=== PATIENT | female | born 1965 | race Caucasian/White ===

== ENCOUNTER 2019-11-22 16:53 | Outpatient (REF) | payer MEDICARE, SELFPAY | END 2019-11-22 16:54 | disposition home or self-care (01) | LOC: HO.LNP 16:53 | PROVIDERS: Visit Provider Nurse Practitioner Family | DX: Z20.828 Contact with and (suspected) exposure to other viral communicable diseases (principal) | CPT/HCPCS: 87635 ==

== ENCOUNTER → 2019-11-30 10:51 | Outpatient (BNVA) | payer MEDICARE, SELFPAY | PROVIDERS: PCP Nurse Practitioner Family; Referring Provider Nurse Practitioner Family; Visit Provider Nurse Practitioner | DX: D13.6 Benign neoplasm of pancreas (principal); K62.9 Disease of anus and rectum, unspecified | CPT/HCPCS: 99213 ==

== ENCOUNTER 2020-01-06 08:25 | Outpatient (REF) | payer MEDICARE, SELFPAY ==
--- NOTE | 2020-01-06 08:30 | MM_ITS ---
EXAMINATION: MM SCREENING DIGITAL BREAST TOMOSYNTHESIS, BILATERAL CLINICAL INFORMATION: Screening. Asymptomatic. Family history breast cancer, grandmother, aunt. The lifetime risk of breast cancer based on the Tyrer-Cuzick Model is 11%. COMPARISON: Mammography: 04/18/2014, 03/21/2013 TECHNIQUE: Digital breast tomosynthesis is performed in both the craniocaudal and mediolateral oblique views along with computer-aided detection (CAD). Synthesized 2D images are generated from the tomosynthesis. FINDINGS: There are scattered areas of fibroglandular density (ACR BI-RADS breast composition Category b). There are no significant masses, abnormal calcifications, or other abnormalities. No significant change from prior exams. The axilla are unremarkable. MM/MM tomosynthesis screening BI IMPRESSION: No mammographic evidence of malignancy. ASSESSMENT: BI-RADS 1: Negative RECOMMENDATION: Routine annual mammography screening. This patient's information was entered into a reminder system with a target due date for their next mammogram.
== END 2020-01-06 08:26 | disposition home or self-care (01) ==
LOC: HO.MAMMO 08:25
PROVIDERS: PCP Nurse Practitioner Family; Visit Provider Obstetrics & Gynecology
DX: Z12.31 Encounter for screening mammogram for malignant neoplasm of breast (principal)
CPT/HCPCS: 77063; 77067

== ENCOUNTER 2020-02-02 18:07 | Emergency (ER) | payer MEDICARE, SELFPAY ==
[2020-02-02 18:09] VITALS: BMI 32.5
--- NOTE | 2020-02-02 18:10 | ECG_ITS ---
Test Reason : CHEST PAIN Blood Pressure : / mmHG Vent. Rate : 075 BPM Atrial Rate : 075 BPM P-R Int : 172 ms QRS Dur : 090 ms QT Int : 392 ms P-R-T Axes : 006 004 017 degrees QTc Int : 437 ms Normal sinus rhythm Normal ECG When compared with ECG of 22-DEC-2018 11:08, No significant change was found Referred By: Generic ED Physician Electronically Signed By:Evin Cornejo
[2020-02-02 18:33] VITALS: BP 203/89; PULSE 74; RESP 18; TEMP 36.6; O2SAT 99; BMI 32.2
--- NOTE | 2020-02-02 19:13 | ED_ITS ---
HPI - Chest Pain General Chief Complaint: Chest Pain Stated Complaint: chest pain Time Seen by Provider: 02/02/20 19:13 Source: patient Mode of arrival: ambulatory Limitations: no limitations History of Present Illness HPI narrative: States 3 days of left-sided pain/discomfort in the setting of increased social stressors/anxiety. No shortness of breath. No lower extremity swelling or edema. No recent travel. No cough or URI symptoms. MD complaint: chest pain and chest discomfort Onset (ago): day(s) Timing of current episode: episodic Onset: other (Emotional upset) Pain location: left chest Pain radiation: none Quality: tightness Treatment prior to arrival: none Related Data Home Medications Medication Instructions Recorded Confirmed albuterol sulfate 90 mcg/actuation 1 puff PO Q4H PRN 11/17/19 11/17/19 aerosol inhaler bisacodyl 5 mg tablet,delayed 10 mg PO DAILY 11/17/19 11/17/19 release fluticasone propionate 45 2 puff PO BID 11/17/19 11/17/19 mcg-salmeterol 21 mcg/actuation HFA inhaler peg 3350-electrolytes 236 ml PO 11/17/19 11/17/19 gram-22.74 gram-6.74 gram-5.86 gram solution Previous Rx's Medication Instructions Recorded fluconazole 150 mg tablet 150 mg PO Q3D #2 tab 11/22/19 hydroxyzine HCl 25 mg PO BID PRN #10 tab 02/02/20 Allergies Allergy/AdvReac Type Severity Reaction Status Date / Time No Known Allergies Allergy Verified 11/30/19 08:52 [No Known Allergies*] Review of Systems Review of Systems: Constitutional: No Weight loss, No Fever, No Chills, No Night Sweats, No Fatigue, No Malaise ENT/Mouth: No Hearing loss, No Ear Pain, No Nasal Congestion, No Sinus Pain, No Hoarseness, No sore throat, No Rhinorrhea, No Swallowing Difficulty Eyes: No Eye Pain, No Swelling, No Redness, No Foreign Body, No Discharge, No Vision Changes Cardiovascular: + Chest Pain, No SOB, No Dyspnea on Exertion, No Orthopnea, No Edema, No Palpitations Respiratory: No Cough, No Sputum, No Wheezing, No Dyspnea Gastrointestinal: No Nausea, No Vomiting, No Diarrhea, No Constipation, No abdominal Pain, No Hematochezia, No Melena Genitourinary: no irregular bleeding, No Dysuria, No Urinary Frequency, No Hematuria, No Urinary Incontinence, No Urgency, No Flank Pain, No Urinary Flow Changes, No Hesitancy Musculoskeletal: No joint pain, No Myalgias, No Joint Swelling Skin: No Skin Lesions, No rash Neuro: No Weakness, No Numbness, No Paresthesias, No Loss of Consciousness, No Dizziness, No Headache Psych: + Anxiety as noted in HPI relagted to social stress, No Depression, No SI/HI/AH/VH Heme/Lymph: No Bruising, No Bleeding,No Lymphadenopathy Endocrine: No Polyuria, No Polydipsia, No Temperature Intolerance Yes all other systems are reviewed and are negative [facility] Past Medical History Medical History Abnormal US (ultrasound) of abdomen COPD (chronic obstructive pulmonary disease) Surgical History History of cervical discectomy History of surgery on wrist Hx of colonoscopy (10/24/19) Hx of neck surgery Family History Family History (Updated 11/30/19 @ 10:53 by BETTY Hines) Father Diabetes mellitus Lyme disease Mother Lung cancer Other Hyperglycemia Leukemia Social History Social History (Updated 11/30/19 @ 10:54 by BETTY Hines) Alcohol intake: current Alcohol intake frequency: does not drink Smoking Status: Never smoker Physical Exam Vital Signs: Vital Signs: Last Vital Signs Temp 97.9 F 02/02/20 18:33 Pulse 72 02/02/20 20:00 Resp 16 02/02/20 20:00 BP 143/76 H 02/02/20 20:00 Pulse Ox 99 02/02/20 20:00 Body Mass Index 32.2 Reviewed Const: General: cooperative and healthy appearing; No acute distress or intoxicated appearing Nutritional Appearance: average body habitus Orientation/consciousness: patient oriented x3 HENMT: Head: Yes normal to inspection Ears: hearing grossly normal bilaterally Eyes: General: appearance normal, both eyes and all related structures Visual Orellana: normal visual orellana by confrontation Neck: Neck: Yes normal visual inspection and No tender Thyroid: Thyroid normal Chest: Chest palpation & inspection: normal inspection of the chest Resp: Effort & Inspection: normal respiratory effort Auscultation: clear to auscultation bilaterally Cardio: Jugular venous distension: no JVD Palpation: normal PMI Rhythm: regular rhythm Heart sounds: S1 normal heart sound present and S2 normal heart sound present GI: Inspection: Yes normal to inspection Percussion: Yes normal to percussion Auscultation: normal bowel sounds : General: Yes no CVA tenderness Back/Spine/Pelvis: Back: no CVA tenderness Skin: General skin exam: no rashes or lesions noted Neuro: General: patient oriented x3 Extrem: General: Yes normal to inspection Course Course Course Narrative: Feels better after hydroxyzine. Workup essentially unremarkable. Will be discharged home with prescription of hydroxyzine with clear precaution return follow-up instructions. MDM - Chest Pain MDM Narrative Medical decision making narrative: Heart score due to age, classified as low risk. Risk of MAC ED of 0.9-1.7%. Pulmonary embolism less likely not tachycardic common non hypoxic Differential Diagnosis Differential diagnosis: Likely atypical chest pain, costochondritis and chest pain; Unlikely fracture of rib, pneumothorax, stable angina, unstable angina pectoris, st elevation myocardial infarction and biliary colic Medical Records Data Attestation: I reviewed the patient's medical records. Lab Data Attestation: I reviewed the patient's lab results. Result diagrams: 02/02/20 19:25 02/02/20 19:25 Labs: Lab Results 02/02/20 02/02/20 02/02/20 Range/Units 19:25 19:25 19:25 WBC 9.8 (4.8-10.8) X10*3/uL RBC 4.39 (4.20-5.50) X10*6/uL Hgb 12.9 (12.0-16.0) g/dl Hct 39.2 (37-47) % MCV 89.3 (80-98) fL MCH 29.4 (27.0-33.0) pg MCHC 32.9 (31.0-35.0) g/dl RDW 12.6 (11.0-16.0) % Plt Count 271 (160-400) X10*3/uL MPV 9.7 (9.4-12.3) fL Immature Gran % (Auto) 0.4 (0.0-0.4) % Neut % (Auto) 64.3 (45-73) % Lymph % (Auto) 26.0 (20-40) % [place] % (Auto) 7.9 (2-11) % Eos % (Auto) 1.1 (0-4) % Baso % (Auto) 0.3 (0-2) % Lymph # (Auto) 2.5 (1.2-4.9) X10*3/uL [place] # (Auto) 0.8 (0.1-1.2) X10*3/uL Eos # (Auto) 0.1 (0.0-0.4) X10*3/uL Baso # (Auto) 0.0 (0.0-0.2) X10*3/uL Abs Immat Gran (auto) 0.04 H (0.00-0.03) X10*3/uL Absolute Neuts (auto) 6.3 (2.0-8.3) X10*3/uL Absolute Nucleated RBC 0.000 (0.0-0.012) X10*3/uL Nucleated RBC % (auto) 0.0 (0.0-0.2) /100WBC PT (10.8-13.0) SEC INR (0.9-1.1) APTT (24.1-38.0) SEC Sodium 142 (135-145) mmol/L Potassium 4.9 (3.3-5.1) mmol/l Chloride 104 (96-108) mmol/L Carbon Dioxide 28 (22-29) mmol/L Anion Gap 15 (12-20) BUN 16 (9-16) mg/dL Creatinine 0.79 (0.5-1.4) mg/dL Estim Creat Clear Calc 71.8 Estimated GFR > 60 Random Glucose 99 (60-115) mg/dL Calcium 9.6 (8.4-10.2) mg/dL Total Bilirubin 0.3 (0.0-1.0) mg/dL AST 27 (5-31) U/L ALT 16 (0-31) U/L Alkaline Phosphatase 109 (39-117) U/L Troponin I High Sens 3.6 (<3.5-17.0) ng/L Total Protein 7.4 (6.5-8.0) g/dL Albumin 4.2 (3.5-5.0) g/dL Coronavirus (PCR) (Negative) Influenza Type A (PCR) (Negative) Influenza Type B (PCR) (Negative) RSV RNA Qual (PCR) (Negative) 02/02/20 02/02/20 Range/Units 19:25 19:36 WBC (4.8-10.8) X10*3/uL RBC (4.20-5.50) X10*6/uL Hgb (12.0-16.0) g/dl Hct (37-47) % MCV (80-98) fL MCH (27.0-33.0) pg MCHC (31.0-35.0) g/dl RDW (11.0-16.0) % Plt Count (160-400) X10*3/uL MPV (9.4-12.3) fL Immature Gran % (Auto) (0.0-0.4) % Neut % (Auto) (45-73) % Lymph % (Auto) (20-40) % [place] % (Auto) (2-11) % Eos % (Auto) (0-4) % Baso % (Auto) (0-2) % Lymph # (Auto) (1.2-4.9) X10*3/uL [place] # (Auto) (0.1-1.2) X10*3/uL Eos # (Auto) (0.0-0.4) X10*3/uL Baso # (Auto) (0.0-0.2) X10*3/uL Abs Immat Gran (auto) (0.00-0.03) X10*3/uL Absolute Neuts (auto) (2.0-8.3) X10*3/uL Absolute Nucleated RBC (0.0-0.012) X10*3/uL Nucleated RBC % (auto) (0.0-0.2) /100WBC PT 11.9 (10.8-13.0) SEC INR 1.0 (0.9-1.1) APTT 33.8 (24.1-38.0) SEC Sodium (135-145) mmol/L Potassium (3.3-5.1) mmol/l Chloride (96-108) mmol/L Carbon Dioxide (22-29) mmol/L Anion Gap (12-20) BUN (9-16) mg/dL Creatinine (0.5-1.4) mg/dL Estim Creat Clear Calc Estimated GFR Random Glucose (60-115) mg/dL Calcium (8.4-10.2) mg/dL Total Bilirubin (0.0-1.0) mg/dL AST (5-31) U/L ALT (0-31) U/L Alkaline Phosphatase (39-117) U/L Troponin I High Sens (<3.5-17.0) ng/L Total Protein (6.5-8.0) g/dL Albumin (3.5-5.0) g/dL Coronavirus (PCR) NEGATIVE (Negative) Influenza Type A (PCR) NEGATIVE (Negative) Influenza Type B (PCR) NEGATIVE (Negative) RSV RNA Qual (PCR) NEGATIVE (Negative) Imaging Data Chest x-ray: Radiologist's impression: Cary Soler 54 F 1965 [place] [address] XRay Report Signed Patient: Cary SolernMR#: [id number] : 1965Acct:[id number] Age/Sex: 54 / FADM Date: 02/02/20 Loc: HO.ED Attending Dr: Ordering Physician: Siddhartha Carmona NP Date of Service: 02/02/20 Procedure(s): XR chest 1V Accession Number(s): [id number] cc: Siddhartha Carmona NP~ EXAMINATION: XR CHEST CLINICAL INFORMATION: Chest pain COMPARISON: 04/26/2019 TECHNIQUE: Frontal view of the chest was obtained. FINDINGS: No significant abnormality is noted involving the heart, lungs, mediastinum, bony thorax or soft tissues. XR/XR chest 1V IMPRESSION: Unremarkable examination. Dictated By:CHEKO CABRERA MD Signed By:<Electronically signed by CHEKO CABRERA MD in OV>02/02/201937 DD/ 12 TD/TT: Insulation Board Head Saw Operator: ALEKSANDR ECG Data ECG #1: Interpretation: Normal sinus rhythm Rate 75 DC interval within normal limits No acute ST segment changes No significant change from 12/22/2018. Discharge Plan Discharge Clinical Impression: Atypical chest pain, Anxiety, Hypertension Patient Disposition: Home, Self-Care Instructions: Chest Pain (ED), Anxiety (ED) Additional Instructions: Well-balanced diet Stress relieving techniques as reviewed Yoga Plenty of sleep Avoiding carbonated drinks/imaging/caffeine Hydroxyzine as needed for anxiety as prescribed Follow-up with her primary care doctor in the next 3-7 days to have your blood pressure recheck Return if any concerns worsening symptoms Thank you Prescriptions: New hydroxyzine HCl 25 mg tablet 25 mg PO BID PRN (Reason: anxiety) Qty: 10 RF: 0 No Action peg 3350-electrolytes 236-22.74-6.74 -5.86 gram recon soln PO RF: 0 bisacodyl 5 mg tablet,delayed release (DR/EC) 10 mg PO DAILY RF: 0 Advair HFA 45-21 mcg/actuation HFA aerosol inhaler 2 puff PO BID RF: 0 albuterol sulfate 90 mcg/actuation HFA aerosol inhaler 1 puff PO Q4H PRNRF: 0 fluconazole [Diflucan] 150 mg tablet 150 mg PO Q3D Qty: 2 RF: 0 Referrals: Jose Carlos Sullivan FNP-BONG [Primary Care Provider] - 5 days Jerry Jones MD [Physician] - 2 weeks Interventions: ED Discharge Assessment Last Done: 02/02/20 22:04 Discharge Date/Time: 02/02/20 22:05
[2020-02-02 19:38] LABS: Basophils Percent Auto 0.3 % (0-2); Eosinophils Absolute Auto 0.1 X10*3/uL (0.0-0.4); Eosinophils Percent Auto 1.1 % (0-4); Hematocrit 39.2 % (37-47); Hemoglobin 12.9 g/dl (12.0-16.0); Imm Gran Abs Auto 0.04 X10*3/uL (0.00-0.03); Imm Gran Pct Auto 0.4 % (0.0-0.4); Lymphocytes Absolute Auto 2.5 X10*3/uL (1.2-4.9); MANUAL DIFF FLAG NO; Mean Corpuscular HGB Conc 32.9 g/dl (31.0-35.0); Mean Corpuscular Hemoglobin 29.4 pg (27.0-33.0); Mean Corpuscular Volume 89.3 fL (80-98); Mean Platelet Volume 9.7 fL (9.4-12.3); Monocytes Absolute Auto 0.8 X10*3/uL (0.1-1.2); Monocytes Percent Auto 7.9 % (2-11); Neutrophils Absolute Auto 6.3 X10*3/uL (2.0-8.3); Neutrophils Percent Auto 64.3 % (45-73); Platelet Count 271 X10*3/uL (160-400); Red Blood Count 4.39 X10*6/uL (4.20-5.50); Red Cell Distribution Width 12.6 % (11.0-16.0); White Blood Count 9.8 X10*3/uL (4.8-10.8)
[2020-02-02 19:53] LABS: Prothrombin Time 11.9 SEC (10.8-13.0)
[2020-02-02 19:55] LABS: Partial Thromboplastin Time 33.8 SEC (24.1-38.0)
[2020-02-02 20:00] VITALS: BP 143/76; PULSE 72; RESP 16; O2SAT 99
[2020-02-02 20:03] LABS: Potassium 4.9 mmol/l (3.3-5.1)
[2020-02-02 20:04] LABS: Alanine Aminotransferase 16 U/L (0-31); Albumin Level 4.2 g/dL (3.5-5.0); Alkaline Phosphatase 109 U/L (39-117); Anion Gap 15 (12-20); Aspartate Amino Transferase 27 U/L (5-31); Bilirubin Total 0.3 mg/dL (0.0-1.0); Blood Urea Nitrogen 16 mg/dL (9-16); Calcium 9.6 mg/dL (8.4-10.2); Carbon Dioxide 28 mmol/L (22-29); Chloride 104 mmol/L (96-108); Creatinine Clr Calc Pharmacy 71.8; Estimated Glomerular Filt Rate > 60; Glucose Random 99 mg/dL (60-115); Sodium 142 mmol/L (135-145); Total Protein 7.4 g/dL (6.5-8.0)
[2020-02-02 20:07] LABS: Troponin-I High Sensitivity 3.6 ng/L (<3.5-17.0)
[2020-02-02 20:20] LABS: Influenza A PCR NEGATIVE (Negative); Influenza B PCR NEGATIVE (Negative); Resp Syncy Virus RNA Qual PCR NEGATIVE (Negative); SARS COV2 PCR INHOUSE NEGATIVE (Negative)
== END 2020-02-02 22:05 | disposition home or self-care (01) ==
PROVIDERS: Nurse Practitioner Primary Care; Emergency Provider Emergency Medicine; PCP Nurse Practitioner Family
DX: R07.89 Other chest pain (principal); F41.9 Anxiety disorder, unspecified; I10 Essential (primary) hypertension; Z20.828 Contact with and (suspected) exposure to other viral communicable diseases
CPT/HCPCS: 0241U; 36415; 71045; 80053; 84484; 85025; 85610; 85730; 93005; 99284

== ENCOUNTER 2020-04-22 16:47 | Outpatient (REF) | payer MEDICARE, SELFPAY ==
[2020-04-22 18:06] LABS: Hematocrit 40.7 % (37-47); Mean Corpuscular HGB Conc 31.9 g/dl (31.0-35.0); Mean Corpuscular Hemoglobin 29.1 pg (27.0-33.0); Mean Corpuscular Volume 91.3 fL (80-98); Mean Platelet Volume 10.1 fL (9.4-12.3); Platelet Count 256 X10*3/uL (160-400); Red Blood Count 4.46 X10*6/uL (4.20-5.50); Red Cell Distribution Width 12.4 % (11.0-16.0); White Blood Count 8.1 X10*3/uL (4.8-10.8)
[2020-04-22 18:08] LABS: Estimated Average Glucose 126 mg/dL
[2020-04-22 18:27] LABS: Alanine Aminotransferase 17 U/L (0-31); Albumin Level 4.4 g/dL (3.5-5.0); Alkaline Phosphatase 112 U/L (39-117); Anion Gap 13 (12-20); Aspartate Amino Transferase 18 U/L (5-31); Bilirubin Total 0.3 mg/dL (0.0-1.0); Blood Urea Nitrogen 15 mg/dL (9-16); Calcium 9.2 mg/dL (8.4-10.2); Carbon Dioxide 30 mmol/L (22-29); Chloride 102 mmol/L (96-108); Cholesterol 175 mg/dL; Estimated Glomerular Filt Rate > 60; Glucose Fasting 114 mg/dL (60-99); HDL Cholesterol 62 mg/dL; LDL Cholesterol Calculated 90 mg/dl; Potassium 4.1 mmol/L (3.3-5.1); Sodium 141 mmol/L (135-145); Total Protein 7.4 g/dL (6.5-8.0); Triglycerides 118 mg/dL
[2020-04-22 18:31] LABS: Troponin-I High Sensitivity < 3.5 ng/L (<3.5-17.0)
[2020-04-22 18:49] LABS: TSH reflex Free T4 1.08 uIU/mL (0.32-4.0)
== END 2020-04-22 16:48 | disposition home or self-care (01) ==
LOC: HO.LAB 16:47
PROVIDERS: PCP Physician Assistant; Visit Provider Physician Assistant
DX: E66.09 Other obesity due to excess calories (principal); I10 Essential (primary) hypertension; Z13.1 Encounter for screening for diabetes mellitus; Z13.29 Encounter for screening for other suspected endocrine disorder; Z68.32 Body mass index [BMI] 32.0-32.9, adult; Z20.822 Contact with and (suspected) exposure to COVID-19
CPT/HCPCS: 36415; 80048; 80053; 80061; 83036; 84443; 84484; 85027

== ENCOUNTER 2020-05-07 05:52 | Emergency (ER) | payer MEDICARE, SELFPAY ==
--- NOTE | 2020-05-06 06:00 | ECG_ITS ---
Test Reason : CHEST PAIN Blood Pressure : / mmHG Vent. Rate : 065 BPM Atrial Rate : 065 BPM P-R Int : 174 ms QRS Dur : 094 ms QT Int : 426 ms P-R-T Axes : 009 010 035 degrees QTc Int : 443 ms Normal sinus rhythm Normal ECG When compared with ECG of 02-FEB-2020 18:19, No significant change was found Referred By: Thiago Brown Electronically Signed By:ANGIE VILLASEÑOR
--- NOTE | ~2020-05-07 | XR_ITS ---
EXAMINATION: XR CHEST CLINICAL INFORMATION: Chest pain COMPARISON: 02/02/2020 TECHNIQUE: 2 views of the chest were obtained. FINDINGS: No focal consolidation, pleural effusion or pneumothorax. Heart size is normal. No acute osseous abnormality. XR/XR chest 2V IMPRESSION: Unchanged examination without acute pulmonary process.
[2020-05-07 05:56] VITALS: BP 142/75; PULSE 64; RESP 62; TEMP 36.5; O2SAT 97; BMI 32.5
--- NOTE | 2020-05-07 06:47 | ED_ITS ---
HPI - Chest Pain General Chief Complaint: Chest Pain Stated Complaint: Chest pain Time Seen by Provider: 05/07/20 06:29 Source: patient Mode of arrival: ambulatory Limitations: no limitations History of Present Illness HPI narrative: Who presents emergency department for evaluation of chest pain times four days. The patient states that the chest pain started over the weekend but she does not recall which she is doing when the pain began. She states the pain is a constant, sharp, pressure-like pain and she points to her costochondral joints bilaterally when asked to localize the pain. She states the pain is worse with breathing and is worse with exertion. She states the pain is 3/10 at its worst. She had no associated lightheadedness, dizziness, diaphoresis or radiation of her pain to her neck, jaw, arms or back she denied fever, cough, abdominal pain, change in bowel movements. Patient states that she does have COPD and she used her inhaler with only minimal improvement of her pain. She is concerned that she may have COVID-19 but does not have any known exposure. Related Data Home Medications Medication Instructions Recorded Confirmed albuterol sulfate 90 mcg/actuation 1 puff PO Q4H PRN 11/17/19 05/01/20 aerosol inhaler fluticasone propionate 45 2 puff PO BID 11/17/19 05/01/20 mcg-salmeterol 21 mcg/actuation HFA inhaler peg 3350-electrolytes 236 ml PO 11/17/19 05/01/20 gram-22.74 gram-6.74 gram-5.86 gram solution diclofenac sodium 50 mg 50 mg PO Q12H PRN 02/26/20 05/01/20 tablet,delayed release Previous Rx's Medication Instructions Recorded hydroxyzine HCl 25 mg PO BID PRN #10 tab 02/02/20 baclofen 10 mg tablet 10 mg PO DAILY #20 tab 03/18/20 lisinopril 20 mg tablet 20 mg PO DAILY #90 tab 05/02/20 Allergies Allergy/AdvReac Type Severity Reaction Status Date / Time No Known Allergies Allergy Verified 05/01/20 18:25 [No Known Allergies*] Review of Systems Review of Systems: Yes all other systems are reviewed and are negative PMFSH Past Medical History [facility] Narrative: The patient is a former smoker, she stopped smoking in 2003, she has a greater than 28 pack-year history of smoking, she denies alcohol use, she denies drug use. She lives with her . She states that her has leukemia. Medical History Abnormal US (ultrasound) of abdomen COPD (chronic obstructive pulmonary disease) Surgical History History of cervical discectomy History of surgery on wrist Hx of colonoscopy (10/24/19) Hx of neck surgery Family History Family History Father Diabetes mellitus Lyme disease Mother Lung cancer Other Hyperglycemia Leukemia Social History Social History Alcohol intake: current Alcohol intake frequency: does not drink Smoking Status: Never smoker Use of substances other than those prescribed or required for medical reasons: No Advance Directives: No Advance Directives Information Provided: No Physical Exam Vital Signs: Vital Signs: Last Vital Signs Temp 97.7 F 05/07/20 05:56 Pulse 64 05/07/20 05:56 Resp 62 H 05/07/20 05:56 BP 142/75 H 05/07/20 05:56 Pulse Ox 97 05/07/20 05:56 Body Mass Index 32.5 Const: General: cooperative and healthy appearing Orientation/consciousness: oriented to person and oriented to place Limit ations: no limitations HENMT: Head: Yes normal to inspection, Yes normocephalic and Yes atraumatic Ears: external ears normal General nose exam: Normal external nose present Face and sinus: Yes normal facial exam Mouth: Normal oral and palatal mucosa present Throat: Yes posterior oropharynx normal Eyes: Periorbital: periorbital findings normal Eyelids: Yes eyelids normal Conjunctivae: conjunctivae normal Sclerae: sclerae normal Corneas: corneas normal Pupils: Equal, round and reactive pupils present Direct Ophthalmoscopy: normal light reflex Neck: Neck: Yes full ROM, Yes no lymphadenopathy, Yes no meningeal signs, Yes trachea midline and Yes supple Chest: Chest palpation & inspection: normal inspection of the chest and tenderness (Bilateral anterior chest wall, costochondral joints) Resp: Effort & Inspection: normal respiratory effort and able to speak in complete sentences Auscultation: clear to auscultation bilaterally Cardio: Rate: regular rate Rhythm: regular rhythm Heart sounds: S1 normal heart sound present, S2 normal heart sound present and no murmurs GI: Inspection: Yes normal to inspection Palpation (GI): Soft to palpation, nontender, no guarding, not rigid and No hepatosplenomegaly present : General: Yes no CVA tenderness Back/Spine/Pelvis: Back: no CVA tenderness Cervical Spine: normal cervical lordosis Thoracic/Lumbar Spine: thoracic and lumbar spine normal to inspection Skin: Lesions: no lesions Rashes: no rashes Wounds: no wounds Neuro: General: oriented to person, oriented to place and no meningeal signs Cranial nerves: Yes CN's II-XII intact bilaterally and Yes Equal, round and reactive pupils present Cognition (Neuro): normal cognition Motor exam (neuro): 5/5 motor strength present throughout Extrem: General: Yes normal to inspection and Yes full ROM Psych: Appearance: well kempt Mental Status: mental status grossly normal Speech and movement: Normal speech and movement present Affect: normal affect Attitude: cooperative Thought process: Normal thought process present Thought content: Normal thought content present Course Course Course Narrative: 54-year-old female who presents emergency department for evaluation of 4 days anterior chest pain, pain is constant, worse with breathing worse with exertion. Physical examination revealed stable vital signs with an O2 saturation of 97% on room air. The patient does have anterior chest wall tenderness mainly over the costochondral joints. Given her comorbid conditions, I did do a workup to include a CBC, CMP, troponin, D-dimer and chest x-ray. Patient was ordered to get Toradol 30 mg IV for her chest pain. Twelve EKG re vealed no evidence ischemia or myocardial injury. 0807: The patient's laboratory evaluation was unremarkable with a nondetectable troponin and D-dimer. Chest x-ray was normal. Patient's presentation is consistent with costochondritis and she did get some improvement with IV Toradol. The patient was discharged home with verbal and printed instructions. She was advised to take Tylenol and ibuprofen for her pain. MDM - Chest Pain Lab Data Result diagrams: 05/07/20 07:03 05/07/20 07:03 Labs: Lab Results 05/07/20 05/07/20 05/07/20 Range/Units 07:03 07:03 07:03 WBC 5.9 (4.8-10.8) X10*3/uL RBC 4.27 (4.20-5.50) X10*6/uL Hgb 12.5 (12.0-16.0) g/dl Hct 38.5 (37-47) % MCV 90.2 (80-98) fL MCH 29.3 (27.0-33.0) pg MCHC 32.5 (31.0-35.0) g/dl RDW 12.4 (11.0-16.0) % Plt Count 215 (160-400) X10*3/uL MPV 9.4 (9.4-12.3) fL Immature Gran % (Auto) 0.3 (0.0-0.4) % Neut % (Auto) 58.9 (45-73) % Lymph % (Auto) 31.7 (20-40) % [place] % (Auto) 6.7 (2-11) % Eos % (Auto) 2.2 (0-4) % Baso % (Auto) 0.2 (0-2) % Lymph # (Auto) 1.9 (1.2-4.9) X10*3/uL [place] # (Auto) 0.4 (0.1-1.2) X10*3/uL Eos # (Auto) 0.1 (0.0-0.4) X10*3/uL Baso # (Auto) 0.0 (0.0-0.2) X10*3/uL Abs Immat Gran (auto) 0.02 (0.00-0.03) X10*3/uL Absolute Neuts (auto) 3.5 (2.0-8.3) X10*3/uL Absolute Nucleated RBC 0.000 (0.0-0.012) X10*3/uL Nucleated RBC % (auto) 0.0 (0.0-0.2) /100WBC D-Dimer < 200 NG/ML Sodium 143 (135-145) mmol/L Potassium 3.7 (3.3-5.1) mmol/L Chloride 106 (96-108) mmol/L Carbon Dioxide 29 (22-29) mmol/L Anion Gap 12 (12-20) BUN 18 H (9-16) mg/dL Creatinine 0.74 (0.5-1.4) mg/dL Estim Creat Clear Calc 77.2 Estimated GFR > 60 Random Glucose 139 H D (60-115) mg/dL Calcium 8.9 (8.4-10.2) mg/dL Total Bilirubin 0.7 (0.0-1.0) mg/dL AST 17 (5-31) U/L ALT 13 (0-31) U/L Alkaline Phosphatase 94 (39-117) U/L Troponin I High Sens (<3.5-17.0) ng/L Total Protein 6.5 (6.5-8.0) g/dL Albumin 3.9 (3.5-5.0) g/dL COVID-19 (HARSHAD) (Negative) COVID-19 Clin Com 05/07/20 05/07/20 Range/Units 07:03 07:03 WBC (4.8-10.8) X10*3/uL RBC (4.20-5.50) X10*6/uL Hgb (12.0-16.0) g/dl Hct (37-47) % MCV (80-98) fL MCH (27.0-33.0) pg MCHC (31.0-35.0) g/dl RDW (11.0-16.0) % Plt Count (160-400) X10*3/uL MPV (9.4-12.3) fL Immature Gran % (Auto) (0.0-0.4) % Neut % (Auto) (45-73) % Lymph % (Auto) (20-40) % [place] % (Auto) (2-11) % Eos % (Auto) (0-4) % Baso % (Auto) (0-2) % Lymph # (Auto) (1.2-4.9) X10*3/uL [place] # (Auto) (0.1-1.2) X10*3/uL Eos # (Auto) (0.0-0.4) X10*3/uL Baso # (Auto) (0.0-0.2) X10*3/uL Abs Immat Gran (auto) (0.00-0.03) X10*3/uL Absolute Neuts (auto) (2.0-8.3) X10*3/uL Absolute Nucleated RBC (0.0-0.012) X10*3/uL Nucleated RBC % (auto) (0.0-0.2) /100WBC D-Dimer NG/ML Sodium (135-145) mmol/L Potassium (3.3-5.1) mmol/L Chloride (96-108) mmol/L Carbon Dioxide (22-29) mmol/L Anion Gap (12-20) BUN (9-16) mg/dL Creatinine (0.5-1.4) mg/dL Estim Creat Clear Calc Estimated GFR Random Glucose (60-115) mg/dL Calcium (8.4-10.2) mg/dL Total Bilirubin (0.0-1.0) mg/dL AST (5-31) U/L ALT (0-31) U/L Alkaline Phosphatase (39-117) U/L Troponin I High Sens < 3.5 (<3.5-17.0) ng/L Total Protein (6.5-8.0) g/dL Albumin (3.5-5.0) g/dL COVID-19 (HARSHAD) Negative (Negative) COVID-19 Clin Com See Note ECG Data ECG #1: Attestation: I personally reviewed and interpreted this ECG as follows: Interpretation: 0600: Normal sinus rhythm with a rate of 65, normal IN, QRS and QTC intervals, no ST segment elevation, no ST segment depression, flat T-wave in lead 3, inverted T-wave in V1, no old EKG for comparison. This is a n ormal EKG. Discharge Plan Discharge Prescriptions: No Action baclofen 10 mg tablet 10 mg PO DAILY Qty: 20 RF: 2 lisinopril 20 mg tablet 20 mg PO DAILY Qty: 90 RF: 1 hydroxyzine HCl 25 mg tablet 25 mg PO BID PRN (Reason: anxiety) Qty: 10 RF: 0 peg 3350-electrolytes 236-22.74-6.74 -5.86 gram recon soln PO RF: 0 Advair HFA 45-21 mcg/actuation HFA aerosol inhaler 2 puff PO BID RF: 0 albuterol sulfate 90 mcg/actuation HFA aerosol inhaler 1 puff PO Q4H PRNRF: 0 diclofenac sodium 50 mg tablet,delayed release (DR/EC) 50 mg PO Q12H PRN (Reason: pain) RF: 0
[2020-05-07 07:08] LABS: MANUAL DIFF FLAG NO
[2020-05-07 07:10] LABS: Basophils Percent Auto 0.2 % (0-2); Eosinophils Absolute Auto 0.1 X10*3/uL (0.0-0.4); Eosinophils Percent Auto 2.2 % (0-4); Hematocrit 38.5 % (37-47); Hemoglobin 12.5 g/dl (12.0-16.0); Imm Gran Abs Auto 0.02 X10*3/uL (0.00-0.03); Imm Gran Pct Auto 0.3 % (0.0-0.4); Lymphocytes Absolute Auto 1.9 X10*3/uL (1.2-4.9); Lymphocytes Percent Auto 31.7 % (20-40); Mean Corpuscular HGB Conc 32.5 g/dl (31.0-35.0); Mean Corpuscular Hemoglobin 29.3 pg (27.0-33.0); Mean Corpuscular Volume 90.2 fL (80-98); Mean Platelet Volume 9.4 fL (9.4-12.3); Monocytes Absolute Auto 0.4 X10*3/uL (0.1-1.2); Monocytes Percent Auto 6.7 % (2-11); Neutrophils Absolute Auto 3.5 X10*3/uL (2.0-8.3); Neutrophils Percent Auto 58.9 % (45-73); Platelet Count 215 X10*3/uL (160-400); Red Blood Count 4.27 X10*6/uL (4.20-5.50); Red Cell Distribution Width 12.4 % (11.0-16.0); White Blood Count 5.9 X10*3/uL (4.8-10.8)
[2020-05-07] MEDS: Ketorolac Tromethamine 30 MG/ML VIAL IVPUSH (07:25)
[2020-05-07 07:27] LABS: D Dimer < 200 NG/ML
[2020-05-07 07:30] LABS: COVID-19 Test Negative (Negative); IDNOW Serial# 9DD0AD1C
[2020-05-07 07:36] LABS: Alanine Aminotransferase 13 U/L (0-31); Albumin Level 3.9 g/dL (3.5-5.0); Alkaline Phosphatase 94 U/L (39-117); Anion Gap 12 (12-20); Aspartate Amino Transferase 17 U/L (5-31); Bilirubin Total 0.7 mg/dL (0.0-1.0); Blood Urea Nitrogen 18 mg/dL (9-16); Calcium 8.9 mg/dL (8.4-10.2); Carbon Dioxide 29 mmol/L (22-29); Chloride 106 mmol/L (96-108); Creatinine Clr Calc Pharmacy 77.2; Estimated Glomerular Filt Rate > 60; Glucose Random 139 mg/dL (60-115); Potassium 3.7 mmol/L (3.3-5.1); Sodium 143 mmol/L (135-145); Total Protein 6.5 g/dL (6.5-8.0)
[2020-05-07 07:39] LABS: Troponin-I High Sensitivity < 3.5 ng/L (<3.5-17.0)
== END 2020-05-07 08:49 | disposition home or self-care (01) ==
PROVIDERS: Emergency Provider Emergency Medicine Emergency Medical Services; PCP Physician Assistant
DX: R07.9 Chest pain, unspecified (principal); Z87.891 Personal history of nicotine dependence; Z20.822 Contact with and (suspected) exposure to COVID-19; Z79.899 Other long term (current) drug therapy
CPT/HCPCS: 36415; 71046; 80053; 84484; 85025; 85379; 87635; 93005; 96374; 99284; J1885

== ENCOUNTER 2020-05-08 13:35 | Outpatient (REF) | payer SELFPAY | END 2020-05-08 13:36 | disposition home or self-care (01) | LOC: HO.HAP 13:35 | PROVIDERS: Visit Provider Physician Assistant | DX: Z46.1 Encounter for fitting and adjustment of hearing aid (principal); H90.3 Sensorineural hearing loss, bilateral | CPT/HCPCS: 99499 ==

== ENCOUNTER 2020-06-01 04:50 | Emergency (ER) | payer MEDICARE, SELFPAY ==
--- NOTE | ~2020-06-01 | XR_ITS ---
EXAMINATION: CHEST 1 VIEW CLINICAL INFORMATION: Chest pain. COMPARISON: 05/07/2020. TECHNIQUE: An AP view of the chest is provided. FINDINGS: The cardiac silhouette is not enlarged. The mediastinal and hilar contours are unremarkable. There are neither pleural effusions nor pneumothoraces. There are no consolidations. The osseous structures are stable. XR/XR chest 1V IMPRESSION: No evidence for acute disease.
[2020-06-01 04:54] VITALS: BP 197/95; PULSE 64; RESP 18; TEMP 35.6; O2SAT 97; BMI 35.2
--- NOTE | 2020-06-01 05:00 | ECG_ITS ---
Test Reason : CHEST PAIN Blood Pressure : / mmHG Vent. Rate : 059 BPM Atrial Rate : 059 BPM P-R Int : 174 ms QRS Dur : 094 ms QT Int : 440 ms P-R-T Axes : 016 016 032 degrees QTc Int : 435 ms Sinus bradycardia Incomplete right bundle branch block Borderline ECG When compared with ECG of 07-MAY-2020 06:00, No significant change was found Referred By: Brianna Beckett Electronically Signed By:Evin Cornejo
--- NOTE | 2020-06-01 06:34 | ED_ITS ---
HPI - General Adult General Chief complaint: General Medical Stated complaint: Nausea Time Seen by Provider: 06/01/20 05:00 Source: patient Mode of arrival: ambulatory Limitations: no limitations History of Present Illness HPI narrative: 54 yo female with COPD, HTN, here with 4 days of chest tightness and feeling nauseated denies dyspnea, dizziness, leg pain no recent sick contacts, just states she feels off. Seen in April for similar complaint MD complaint: nausea, chest tightness Onset (ago): day(s) (4) Location: chest Radiation: non-radiation Severity: mild Quality: aching and dull Pain Consistency: constant Relieving factors: none Exacerbating factors: none Associated symptoms: malaise, nausea/vomiting, weakness and other (myalgias) Treatments prior to arrival: none Related Data Home Medications Medication Instructions Recorded Confirmed albuterol sulfate 90 mcg/actuation 1 puff PO Q4H PRN 11/17/19 05/01/20 aerosol inhaler fluticasone propionate 45 2 puff PO BID 11/17/19 05/01/20 mcg-salmeterol 21 mcg/actuation HFA inhaler peg 3350-electrolytes 236 ml PO 11/17/19 05/01/20 gram-22.74 gram-6.74 gram-5.86 gram solution diclofenac sodium 50 mg 50 mg PO Q12H PRN 02/26/20 05/01/20 tablet,delayed release Previous Rx's Medication Instructions Recorded hydroxyzine HCl 25 mg PO BID PRN #10 tab 02/02/20 baclofen 10 mg tablet 10 mg PO DAILY #20 tab 03/18/20 lisinopril 20 mg tablet 20 mg PO DAILY #90 tab 05/02/20 ondansetron 4 mg PO Q8H PRN #20 tab 06/01/20 Allergies Allergy/AdvReac Type Severity Reaction Status Date / Time No Known Allergies Allergy Verified 05/01/20 18:25 [No Known Allergies*] Review of Systems Review of Systems: Constitutional : No Weight loss, No Fever, No Chills ENT/Mouth : No sore throat, No Rhinorrhea Eyes: No Eye Pain, No Swelling Cardiovascular : pos Chest Pain, no SOB, no Dyspnea on Exertion, No Orthopnea, No Edema, No Palpitations Respiratory : No Cough, No Sputum Gastrointestinal : pos Nausea, No Vomiting, No Diarrhea, No abdominal Pain, No Hematochezia, No Melena Genitourinary : No Dysuria, No Urinary Frequency Musculoskeletal : No joint pain, pos Myalgias, No Joint Swelling Skin : No Skin Lesions, No rash Neuro : pos Weakness, No Numbness, No Dizziness, No Headache Psych : No Anxiety/Panic, No Depression Heme/Lymph: No Bruising, No Lymphadenopathy Endocrine : No Polyuria, No Polydipsia All other systems reviewed and are negative PMFSH Past Medical History Attestation statement: The following information was validated with the patient. Medical History Abnormal US (ultrasound) of abdomen COPD (chronic obstructive pulmonary disease) Surgical History History of cervical discectomy History of surgery on wrist Hx of colonoscopy (10/24/19) Hx of neck surgery Family History Family History Father Diabetes mellitus Lyme disease Mother Lung cancer Other Hyperglycemia Leukemia Social History Social History Alcohol intake: never Smoking Status: Never smoker Smoked in Last 30 Days: No Use of substances other than those prescribed or required for medical reasons: No Advance Directives: No Physical Exam Vital Signs: Vital Signs: Last Vital Signs Temp 96.1 F L 06/01/20 04:54 Pulse 64 06/01/20 04:54 Resp 18 06/01/20 04:54 BP 197/95 H 06/01/20 04:54 Pulse Ox 97 06/01/20 04:54 Body Mass Index 35.2 Appearance: Alert. Oriented X3. No acute distress. Eyes: Pupils equal, round and reactive to light. ENT: Pharynx normal. Neck: Normal inspection. Neck supple. CVS: Normal heart rate and rhythm. Pulses normal. Respiratory: No respiratory distress. Breath sounds normal. Abdomen: Soft and nontender. Skin: Skin warm and dry. Normal skin color. Normal skin turgor. Extremities: No lower extremity edema. No calf ttp Neuro: Oriented X 3. No motor deficit. No sensory deficit. Course Course Course Narrative: of note similar presentation in April with 4 days of CP worked up in ED at that time with negative labs, troponin, ddimer - complaint seems similar as of today's visit labs, CXR, COVID swab negative, troponin with 4 days of pain and unchanged EKG negative, at this time stable for DC Medical Decision Making MDM Narrative Medical decision making narrative: 89 yo female with HTN, COPD here with 4 days of chest tightness, body aches, malaise not toxic, no hypoxia, no signs of DVT pain not pleuritic 97% on RA seems unlikely to be VTE at this time will obtain labs, CXR, COVID swab, basic labs, troponin x 1, dispo per results and findings. Lab Data Result diagrams: 06/01/20 06:58 06/01/20 06:58 Labs: Lab Results 06/01/20 06/01/20 06/01/20 Range/Units 06:58 06:58 06:58 WBC 6.9 (4.8-10.8) X10*3/uL RBC 4.41 (4.20-5.50) X10*6/uL Hgb 13.1 (12.0-16.0) g/dl Hct 39.9 (37-47) % MCV 90.5 (80-98) fL MCH 29.7 (27.0-33.0) pg MCHC 32.8 (31.0-35.0) g/dl RDW 12.2 (11.0-16.0) % Plt Count 260 (160-400) X10*3/uL MPV 9.8 (9.4-12.3) fL Immature Gran % (Auto) 0.1 (0.0-0.4) % Neut % (Auto) 64.2 (45-73) % Lymph % (Auto) 25.4 (20-40) % [place] % (Auto) 7.4 (2-11) % Eos % (Auto) 2.3 (0-4) % Baso % (Auto) 0.6 (0-2) % Lymph # (Auto) 1.8 (1.2-4.9) X10*3/uL [place] # (Auto) 0.5 (0.1-1.2) X10*3/uL Eos # (Auto) 0.2 (0.0-0.4) X10*3/uL Baso # (Auto) 0.0 (0.0-0.2) X10*3/uL Abs Immat Gran (auto) 0.01 (0.00-0.03) X10*3/uL Absolute Neuts (auto) 4.5 (2.0-8.3) X10*3/uL Absolute Nucleated RBC 0.000 (0.0-0.012) X10*3/uL Nucleated RBC % (auto) 0.0 (0.0-0.2) /100WBC PT 11.1 (10.8-13.0) SEC INR 0.9 (0.9-1.1) APTT 35.3 (24.1-38.0) SEC Sodium 141 (135-145) mmol/L Potassium 4.6 D (3.3-5.1) mmol/L Chloride 107 (96-108) mmol/L Carbon Dioxide 27 (22-29) mmol/L Anion Gap 12 (12-20) BUN 24 H (9-16) mg/dL Creatinine 0.69 (0.5-1.4) mg/dL Estim Creat Clear Calc 86.1 Estimated GFR > 60 Random Glucose 119 H (60-115) mg/dL Calcium 8.9 (8.4-10.2) mg/dL Total Bilirubin 0.5 (0.0-1.0) mg/dL Direct Bilirubin < 0.2 (0.0-0.5) mg/dL AST 17 (5-31) U/L ALT 18 (0-31) U/L Alkaline Phosphatase 101 (39-117) U/L Troponin I High Sens (<3.5-17.0) ng/L Total Protein 6.9 (6.5-8.0) g/dL Albumin 4.1 (3.5-5.0) g/dL Lipase 28 (8-78) U/L Coronavirus (PCR) (Negative) Influenza Type A (PCR) (Negative) Influenza Type B (PCR) (Negative) RSV RNA Qual (PCR) (Negative) 06/01/20 06/01/20 Range/Units 06:58 06:58 WBC (4.8-10.8) X10*3/uL RBC (4.20-5.50) X10*6/uL Hgb (12.0-16.0) g/dl Hct (37-47) % MCV (80-98) fL MCH (27.0-33.0) pg MCHC (31.0-35.0) g/dl RDW (11.0-16.0) % Plt Count (160-400) X10*3/uL MPV (9.4-12.3) fL Immature Gran % (Auto) (0.0-0.4) % Neut % (Auto) (45-73) % Lymph % (Auto) (20-40) % [place] % (Auto) (2-11) % Eos % (Auto) (0-4) % Baso % (Auto) (0-2) % Lymph # (Auto) (1.2-4.9) X10*3/uL [place] # (Auto) (0.1-1.2) X10*3/uL Eos # (Auto) (0.0-0.4) X10*3/uL Baso # (Auto) (0.0-0.2) X10*3/uL Abs Immat Gran (auto) (0.00-0.03) X10*3/uL Absolute Neuts (auto) (2.0-8.3) X10*3/uL Absolute Nucleated RBC (0.0-0.012) X10*3/uL Nucleated RBC % (auto) (0.0-0.2) /100WBC PT (10.8-13.0) SEC INR (0.9-1.1) APTT (24.1-38.0) SEC Sodium (135-145) mmol/L Potassium (3.3-5.1) mmol/L Chloride (96-108) mmol/L Carbon Dioxide (22-29) mmol/L Anion Gap (12-20) BUN (9-16) mg/dL Creatinine (0.5-1.4) mg/dL Estim Creat Clear Calc Estimated GFR Random Glucose (60-115) mg/dL Calcium (8.4-10.2) mg/dL Total Bilirubin (0.0-1.0) mg/dL Direct Bilirubin (0.0-0.5) mg/dL AST (5-31) U/L ALT (0-31) U/L Alkaline Phosphatase (39-117) U/L Troponin I High Sens < 3.5 (<3.5-17.0) ng/L Total Protein (6.5-8.0) g/dL Albumin (3.5-5.0) g/dL Lipase (8-78) U/L Coronavirus (PCR) NEGATIVE (Negative) Influenza Type A (PCR) NEGATIVE (Negative) Influenza Type B (PCR) NEGATIVE (Negative) RSV RNA Qual (PCR) NEGATIVE (Negative) ECG Data Attestation: I personally reviewed and interpreted this ECG as follows: Interpretation: Rate: 59 Rhythm: sinus bradycardia [place]: normal Normal P waves. Normal CORNELIUS. Normal QRS complex. ST T wave : normal no AILYN qTC: normal prior studies: unchanged, no acute ischemia The study has been interpreted contemporaneously by me. . Discharge Plan Discharge Clinical Impression: Nausea Chest pain Qualifiers: Chest pain type: unspecified Qualified Code(s): R07.9 - Chest pain, unspecified Patient Disposition: Home, Self-Care Instructions: Chest Pain (ED), Acute Nausea and Vomiting (ED) Additional Instructions: return to ED for any worsening symptoms or concerns Prescriptions: New ondansetron 4 mg tablet,disintegrating 4 mg PO Q8H PRN (Reason: nausea and vomiting) Qty: 20 RF: 0 No Action baclofen 10 mg tablet 10 mg PO DAILY Qty: 20 RF: 2 lisinopril 20 mg tablet 20 mg PO DAILY Qty: 90 RF: 1 hydroxyzine HCl 25 mg tablet 25 mg PO BID PRN (Reason: anxiety) Qty: 10 RF: 0 peg 3350-electrolytes 236-22.74-6.74 -5.86 gram recon soln PO RF: 0 Advair HFA 45-21 mcg/actuation HFA aerosol inhaler 2 puff PO BID RF: 0 albuterol sulfate 90 mcg/actuation HFA aerosol inhaler 1 puff PO Q4H PRNRF: 0 diclofenac sodium 50 mg tablet,delayed release (DR/EC) 50 mg PO Q12H PRN (Reason: pain) RF: 0 Referrals: Davie Orozco PA-C [Primary Care Provider] - 2 days (discussion about possible outpatient stress test)
[2020-06-01 07:05] LABS: MANUAL DIFF FLAG NO
[2020-06-01 07:19] LABS: Basophils Percent Auto 0.6 % (0-2); Eosinophils Absolute Auto 0.2 X10*3/uL (0.0-0.4); Eosinophils Percent Auto 2.3 % (0-4); Hematocrit 39.9 % (37-47); Hemoglobin 13.1 g/dl (12.0-16.0); Imm Gran Abs Auto 0.01 X10*3/uL (0.00-0.03); Imm Gran Pct Auto 0.1 % (0.0-0.4); Lymphocytes Absolute Auto 1.8 X10*3/uL (1.2-4.9); Lymphocytes Percent Auto 25.4 % (20-40); Mean Corpuscular HGB Conc 32.8 g/dl (31.0-35.0); Mean Corpuscular Hemoglobin 29.7 pg (27.0-33.0); Mean Corpuscular Volume 90.5 fL (80-98); Mean Platelet Volume 9.8 fL (9.4-12.3); Monocytes Absolute Auto 0.5 X10*3/uL (0.1-1.2); Monocytes Percent Auto 7.4 % (2-11); Neutrophils Absolute Auto 4.5 X10*3/uL (2.0-8.3); Neutrophils Percent Auto 64.2 % (45-73); Platelet Count 260 X10*3/uL (160-400); Red Blood Count 4.41 X10*6/uL (4.20-5.50); Red Cell Distribution Width 12.2 % (11.0-16.0); White Blood Count 6.9 X10*3/uL (4.8-10.8)
[2020-06-01 07:20] LABS: INTERNATIONAL NORM RATIO 0.9 (0.9-1.1); Prothrombin Time 11.1 SEC (10.8-13.0)
--- NOTE | 2020-06-01 07:22 | PC.NURSE ---
18g IV access established in left AC. Labs drawn and sent for analysis, awaiting results. COVID/Flu/RSV swab also obtained and sent for analysis.
[2020-06-01 07:23] LABS: Partial Thromboplastin Time 35.3 SEC (24.1-38.0)
[2020-06-01 07:45] LABS: Alanine Aminotransferase 18 U/L (0-31); Albumin Level 4.1 g/dL (3.5-5.0); Alkaline Phosphatase 101 U/L (39-117); Anion Gap 12 (12-20); Aspartate Amino Transferase 17 U/L (5-31); Bilirubin Direct < 0.2 mg/dL (0.0-0.5); Bilirubin Total 0.5 mg/dL (0.0-1.0); Blood Urea Nitrogen 24 mg/dL (9-16); Calcium 8.9 mg/dL (8.4-10.2); Carbon Dioxide 27 mmol/L (22-29); Chloride 107 mmol/L (96-108); Creatinine Clr Calc Pharmacy 86.1; Estimated Glomerular Filt Rate > 60; Glucose Random 119 mg/dL (60-115); Lipase 28 U/L (8-78); Potassium 4.6 mmol/L (3.3-5.1); Sodium 141 mmol/L (135-145); Total Protein 6.9 g/dL (6.5-8.0)
[2020-06-01 07:49] LABS: Troponin-I High Sensitivity < 3.5 ng/L (<3.5-17.0)
[2020-06-01 09:01] LABS: Influenza A PCR NEGATIVE (Negative); Influenza B PCR NEGATIVE (Negative); Resp Syncy Virus RNA Qual PCR NEGATIVE (Negative); SARS COV2 PCR INHOUSE NEGATIVE (Negative)
== END 2020-06-01 09:33 | disposition home or self-care (01) ==
PROVIDERS: Nurse Practitioner Family; Emergency Provider Emergency Medicine; PCP Physician Assistant
DX: R07.9 Chest pain, unspecified (principal); R11.0 Nausea; I10 Essential (primary) hypertension; Z20.822 Contact with and (suspected) exposure to COVID-19; Z79.899 Other long term (current) drug therapy
CPT/HCPCS: 0241U; 36415; 71045; 80048; 80076; 83690; 84484; 85025; 85610; 85730; 93005; 96374; 99284

== ENCOUNTER 2020-06-07 10:52 | Outpatient (REF) | payer MEDICARE, SELFPAY | END 2020-06-07 10:53 | disposition home or self-care (01) | LOC: HO.LAB 10:52 | PROVIDERS: Visit Provider Internal Medicine | DX: Z20.822 Contact with and (suspected) exposure to COVID-19 (principal) | CPT/HCPCS: C9803; U0003; U0005 ==

== ENCOUNTER 2020-08-28 08:28 | Outpatient (REF) | payer SELFPAY | END 2020-08-28 08:29 | disposition home or self-care (01) | LOC: HO.HAP 08:28 | PROVIDERS: Visit Provider Physician Assistant | DX: Z46.1 Encounter for fitting and adjustment of hearing aid (principal); H90.3 Sensorineural hearing loss, bilateral | CPT/HCPCS: 99499 ==

== ENCOUNTER 2020-09-13 08:56 | Outpatient (REF) | payer MEDICARE, SELFPAY ==
--- NOTE | 2020-09-13 13:53 | MHC.AU.MED ---
Medical Clearance for Hearing Instrumentation Date: 09/13/20 Patient Name: Cary Soler Date of : 1965 Primary Care Provider: Referring Provider: Davie Orozco PA-C We have seen your patient on 09/13/20 and have determined that they are a candidate for amplification (See accompanying report). Specifically, they would benefit from: Hearing aid use in both ears There is a statute that addresses Medical Evaluation Requirements prior to fitting a patient with a hearing aid. According to [place] statute 265 CMR:6.03(1), (a) General. Except as provided in 265 CMR 6.03(1)(b), a shearing supervisor shall not sell a hearing aid unless the prospective user has presented to the shearing supervisor a written statement signed by a licensed physician that states that the patient's hearing loss has been medically evaluated and the patient may be considered a candidate for a hearing aid. The medical evaluation must have taken place within the preceding six months. Please note: Due to the [place] Statute referenced above, we cannot accept a signature other than that of a licensed physician. CAFE SERVER and PA signatures cannot be accepted. I am in agreement with the above recommendation. There is no medical contraindication for hearing instrumentation. Physician Signature Date Physician Name (Printed)
--- NOTE | 2020-09-16 08:59 | MHC.AU.AHA ---
Adult Audiological Evaluation Date of Visit: 09/13/20 Transportation Engineering Technician Used: Not Applicable Reason for Appointment: Audiologic re-evaluation due to increasing hearing difficulties, tinnitus, and intermittent right ear pain. Cary is going through the [place] [facility] ([facility]) for new hearing aids. Previous Hearing Test Results: 09/14/2019 [facility] Severe to profound sensorineural hearing loss, right ear poorer than left. Speech understanding of 20% for the right ear at 95 dB HL and 44% for the left ear at 90 dB HL Medical History: Medical History: High Blood Pressure, Increased seasonal allergies, Tendonitis Medication List: Prescription allergy medication, [id number] Nasal [place], Lisinopril, Baclofen, Diuretic, Multivitamin, Black Elderberry, Vitamin C Hearing Instrument History- Right Ear: Loan Funder: OtOdilo Model: 99taojin.coma Pro Power ABA English Serial Number: [id number] Battery Size: 13 Repair Warranty: 2015 Loss and Damage Warranty: 03/01/2014 Dispensed By: [facility] Date of Fittin02/02/2013 Hearing Instrument History- Left Ear: Loan Funder: Oticon Model: 99taojin.coma Pro Power ExaleadE Serial Number: [id number] Battery Size: 13 Warranty: 2015 Loss and Damage Warranty: 03/01/2014 Dispensed By: [facility] Date of Fittin02/02/2013 Otoscopy: Right Ear: Tympanic membrane is retracted Left Ear: Unremarkable Tympanometry: Tympanometry performed due to: To assess integrity of the middle ear system Right Ear: Negative Middle Ear Pressure (Type C) Left Ear: Normal Middle Ear System (Type A) Hearing Evaluation: Transducer(s) Used: Insert Earphones Bone Conduction Method: Conventional Audiometry Stimuli Used: Pure Tones Right Ear: Description of Hearing: Severe to profound sensorineural hearing loss. Compared to left ear, right ear thresholds are at least 10-20 dB poorer. Left Ear: Description of Hearing: Severe to profound sensorineural hearing loss. Speech Recognition Threshold (SRT): Method Used: Monitored Live Voice Stimuli Used: Spondee Words Right Ear: 90 dB HL Left Ear: 80 dB HL Word Discrimination: Method: Recorded Lists Word Lists Used: NU-6 Right Ear: 16% at 105 dB HL Left Ear: 52% at 105 dB HL Comparison: Compared to 2019 results, thresholds for both ears have decreased 5-15 dB with stable speech discrimination ability. Interpretation of Results: The recent right ear pain and decreased hearing ability may be related to the right ear middle ear dysfunction. Recommendations: Advise medical consultation for Cochlear Implant candidacy and middle ear dysfunction with Dr. Sagar Robledo. Trial with new amplification is recommended. Medical clearance from a physician is required before fitting. Sending quote for new aids to [facility]. Aids will be ordered when [facility] approval is received and a Hearing Aid Fitting will be scheduled when all materials arrive. Audiological re-evaluation in one year. Will send a reminder card. Diagnosis: Primary Diagnosis: H90.3 Bilateral Sensorineural Hearing Loss Services Performed: Comprehensive Audiological Evaluation (CPT 95642) Tympanometry (CPT 12886) Signature: Provider: Shawnee Comer, [facility]
== END 2020-09-13 08:57 | disposition home or self-care (01) ==
LOC: HO.SH 08:56
PROVIDERS: Visit Provider Physician Assistant
DX: H90.3 Sensorineural hearing loss, bilateral (principal)
CPT/HCPCS: 92557; 92567

== ENCOUNTER → 2020-11-12 08:35 | Outpatient (BNVA) | payer MEDICARE, SELFPAY | PROVIDERS: PCP Physician Assistant; Visit Provider Obstetrics & Gynecology ==

== ENCOUNTER 2020-12-13 09:00 | Outpatient (REF) | payer SELFPAY | END 2020-12-13 09:01 | disposition home or self-care (01) | LOC: HO.HAP 09:00 | PROVIDERS: Visit Provider Physician Assistant | DX: Z13.89 Encounter for screening for other disorder (principal) ==

== ENCOUNTER 2021-02-01 07:33 | Outpatient (REF) | payer MEDICARE, SELFPAY ==
--- NOTE | ~2021-02-01 | MM_ITS ---
EXAMINATION: MM SCREENING DIGITAL BREAST TOMOSYNTHESIS, BILATERAL CLINICAL INFORMATION: Screening. Asymptomatic. The lifetime risk of breast cancer based on the Tyrer-Cuzick Model is 9%. COMPARISON: Mammography: 01/06/2020, 04/18/2014 TECHNIQUE: Digital breast tomosynthesis is performed in both the craniocaudal and mediolateral oblique views along with computer-aided detection (CAD). Synthesized 2D images are generated from the tomosynthesis. Additional right MLO view is provided. FINDINGS: There are scattered areas of fibroglandular density (ACR BI-RADS breast composition Category b). There are no significant masses, abnormal calcifications, or other abnormalities. The axilla and skin contours are unremarkable. No significant changes. MM/MM tomosynthesis screening BI IMPRESSION: No mammographic evidence of malignancy. ASSESSMENT: BI-RADS 1: Negative RECOMMENDATION: Routine annual mammography screening. This patient's information was entered into a reminder system with a target due date for their next mammogram.
== END 2021-02-01 07:34 | disposition home or self-care (01) ==
LOC: HO.MAMMO 07:33
PROVIDERS: Visit Provider Obstetrics & Gynecology
DX: Z12.31 Encounter for screening mammogram for malignant neoplasm of breast (principal)
CPT/HCPCS: 77063; 77067

== ENCOUNTER 2021-03-31 02:09 | Emergency (ER) | payer MEDICARE, SELFPAY ==
--- NOTE | 2021-03-31 | ECG_ITS ---
Test Reason : CHEST PAIN Blood Pressure : / mmHG Vent. Rate : 068 BPM Atrial Rate : 068 BPM P-R Int : 178 ms QRS Dur : 088 ms QT Int : 428 ms P-R-T Axes : 013 002 027 degrees QTc Int : 455 ms Normal sinus rhythm Normal ECG When compared with ECG of 01-JUN-2020 05:59, No significant change was found Referred By: Generic ED Physician Electronically Signed By:RAYA LORENZANA MD
[2021-03-31 02:24] VITALS: BP 200/105; PULSE 78; RESP 16; TEMP 36.7; O2SAT 97; BMI 31.0
[2021-03-31 02:41] LABS: Hematocrit 39.1 % (37.0-47.0); Hemoglobin 12.8 g/dl (12.0-16.0); Mean Corpuscular HGB Conc 32.7 g/dl (31.0-35.0); Mean Corpuscular Hemoglobin 29.1 pg (27.0-33.0); Mean Corpuscular Volume 88.9 fL (80.0-98.0); Mean Platelet Volume 9.3 fL (9.4-12.3); Platelet Count 258 X10*3/uL (160-400); Red Cell Distribution Width 12.6 % (11.0-16.0); White Blood Count 8.1 X10*3/uL (4.8-10.8)
[2021-03-31 02:59] LABS: Alanine Aminotransferase 14 U/L (0-31); Albumin Level 4.2 g/dL (3.5-5.0); Alkaline Phosphatase 106 U/L (39-117); Anion Gap 11 (12-20); Aspartate Amino Transferase 16 U/L (5-31); Bilirubin Total 0.3 mg/dL (0.0-1.0); Blood Urea Nitrogen 14 mg/dL (9-16); Calcium 9.1 mg/dL (8.4-10.2); Carbon Dioxide 28 mmol/L (22-29); Chloride 105 mmol/L (96-108); Creatinine Clr Calc Pharmacy 70.5; Estimated Glomerular Filt Rate > 60; Glucose Random 132 mg/dL (60-115); Potassium 3.8 mmol/L (3.3-5.1); Sodium 140 mmol/L (135-145)
[2021-03-31 03:02] LABS: Troponin-I High Sensitivity < 3.5 ng/L (<3.5-17.0)
== END 2021-03-31 07:50 | disposition left against medical advice (07) ==
PROVIDERS: Emergency Provider Emergency Medicine
DX: R07.9 Chest pain, unspecified (principal)
CPT/HCPCS: 36415; 80053; 84484; 85027; 93005; 99283

== ENCOUNTER 2021-08-27 09:27 | Outpatient (REF) | payer MEDICARE, SELFPAY ==
[2021-08-27 10:12] LABS: Hemoglobin 12.5 g/dl (12.0-16.0); Mean Corpuscular HGB Conc 32.1 g/dl (31.0-35.0); Mean Corpuscular Hemoglobin 28.8 pg (27.0-33.0); Mean Corpuscular Volume 89.9 fL (80.0-98.0); Mean Platelet Volume 9.8 fL (9.4-12.3); Platelet Count 251 X10*3/uL (160-400); Red Blood Count 4.34 X10*6/uL (4.20-5.50); Red Cell Distribution Width 12.7 % (11.0-16.0)
[2021-08-27 10:43] LABS: Alanine Aminotransferase 17 U/L (0-31); Albumin Level 4.4 g/dL (3.5-5.0); Alkaline Phosphatase 114 U/L (39-117); Anion Gap 10 (12-20); Aspartate Amino Transferase 18 U/L (5-31); Bilirubin Total 0.4 mg/dL (0.0-1.0); Blood Urea Nitrogen 15 mg/dL (9-16); Calcium 9.3 mg/dL (8.4-10.2); Carbon Dioxide 27 mmol/L (22-29); Chloride 107 mmol/L (96-108); Cholesterol 168 mg/dL; Estimated Glomerular Filt Rate > 60; Glucose Fasting 103 mg/dL (60-99); HDL Cholesterol 62 mg/dL; LDL Cholesterol Calculated 89 mg/dl; Potassium 4.3 mmol/L (3.3-5.1); Sodium 140 mmol/L (135-145); Total Protein 7.1 g/dL (6.5-8.0); Triglycerides 88 mg/dL
[2021-08-27 11:06] LABS: TSH reflex Free T4 0.85 uIU/mL (0.32-4.0)
[2021-08-27 11:08] LABS: Creatinine Urine 124.22 mg/dL; Microalbum/Creatinine Ratio Ur 5.6 ug/mg cr
== END 2021-08-27 09:28 | disposition home or self-care (01) ==
LOC: HO.LAB 09:27
PROVIDERS: PCP Physician Assistant; Visit Provider Physician Assistant
DX: I10 Essential (primary) hypertension (principal)
CPT/HCPCS: 36415; 80053; 80061; 82043; 84443; 85027

== ENCOUNTER 2021-10-31 09:07 | Outpatient (REF) | payer MEDICARE, SELFPAY ==
--- NOTE | ~2021-10-31 | XR_ITS ---
EXAMINATION: XR LUMBOSACRAL SPINE CLINICAL INFORMATION: M54.50 - Low back pain, unspecified COMPARISON: CT abdomen and pelvis 12/22/2018, radiographs lumbar spine 12/05/2014. TECHNIQUE: Three views of the lumbosacral spine. FINDINGS: There is normal lumbar segmentation with 5 nonrib-bearing lumbar vertebrae of normal height. There is dextrocurvature lumbar spine. Lumbar lordosis is within normal. There is no lumbar vertebral compression or destructive process. There are degenerative disc changes lower thoracic spine and in the mid lumbar spine at L2-L3 and L3-L4. There is borderline retrolisthesis at L2 on L3. Facet degeneration is suggested L4-S1. The SI joints and visualized sacrum are unremarkable. XR/XR lumbar spine 2-3V IMPRESSION: -Dextrocurvature. No vertebral compression. -Degenerative disc changes L2-L3 and L3-L4. Borderline retrolisthesis L2 on L3. -Facet degeneration L4-S1.
--- NOTE | ~2021-10-31 | XR_ITS ---
EXAMINATION: XR BILATERAL HIPS WITH AP PELVIS CLINICAL INFORMATION: Hip pain. M25.551. COMPARISON: CT pelvis 12/22/2018, 07/14/2017, radiographs lumbar spine 12/05/2014 TECHNIQUE: AP view of the pelvis is performed. Each hip is imaged in AP and frog-lateral projections. FINDINGS: The bony pelvis shows no fracture or dislocation or destructive process. There is normal bony mineralization. The SI joints and pubis are unremarkable. Bowel gas unremarkable. Left hip shows no definite joint narrowing and no erosive change or chondrocalcinosis. No fracture or dislocation or destructive process. Right hip shows no definite joint narrowing and no erosive change or chondrocalcinosis. No fracture or dislocation or destructive process. There is smooth benign-appearing cortical thickening lateral aspect proximal right femoral shaft, beyond field of view on prior comparison imaging, perhaps related to old trauma or less likely small osteochondroma. No periostitis or suspicious finding. XR/XR hips LUKAS min 3V IMPRESSION: -No hip joint narrowing or erosive changes. Unremarkable pelvis. -Benign-appearing smooth cortical thickening proximal lateral right femoral shaft, possibly sequela from remote injury, broad-based osteochondroma less likely. If focal pain in this area, further assessment could be obtained with MRI.
== END 2021-10-31 09:08 | disposition home or self-care (01) ==
LOC: HO.XRAY 09:07
PROVIDERS: PCP Physician Assistant; Visit Provider Physician Assistant
DX: M54.50 Low back pain, unspecified (principal); M25.551 Pain in right hip; M25.552 Pain in left hip
CPT/HCPCS: 72100; 73522

== ENCOUNTER 2021-12-12 09:53 | Outpatient (REF) | payer SELFPAY ==
--- NOTE | 2021-12-12 12:07 | MHC.AU.HFU ---
Hearing Instrument Follow-Up- Binaural Date of Visit: 12/12/21 Left Ear: Phonotf Ellis B50-UP SN: [id number] Color: Yolanda Service Plan: LOANER *ANNUAL FEE OF $100.00 TO USE, NEEDED* Battery Size: 675 Type of Mold: Full shell Follow-Up Summary: Cary returned to discuss the [facility] loaner hearing aids that were fit in November 2020. She recently received a cochlear implant on the right side. Discussed a new hearing aid for the left ear and recommended considering a ReSound hearing aid programmed by [facility] for binaural function with her Cochlear [employer] implant. Cary reported that she cannot afford a new hearing aid at this time and has already tried going through [facility]. Per Lisbet, Cary can continue to use the left loaner hearing aid for $100.00 annually, as needed. Cary was agreeable to this and grateful to be able to have an affordable solution. The hearing aid and ear mold were cleaned and tubing was replaced. Cary also reported that she needs a new ear mold. She did not want to proceed with an impression today to give herself time to save for the new mold. She will schedule an appointment for an ear mold impression when she is ready. Cary returned the loaner hearing aid that she used for the right ear (Phonak Rhonda B90-UP SN: [id number]) and also donated a pair of Oticon Nera Pro P BTEs and a pair of Roberto Pro BTEs to the clinic. Recommendations: Hearing instrument maintenance in 6 months, or sooner if needed. Please contact our clinic with any questions or concerns. Diagnosis Code(s): Primary Diagnosis: H90.3 Bilateral Sensorineural Hearing Loss Signature: Provider: Kareem Vanessa, [facility]
== END 2021-12-12 09:54 | disposition home or self-care (01) ==
LOC: HO.HAP 09:53
PROVIDERS: Visit Provider Physician Assistant
DX: Z46.1 Encounter for fitting and adjustment of hearing aid (principal); H90.3 Sensorineural hearing loss, bilateral
CPT/HCPCS: 92700

== ENCOUNTER 2022-02-24 08:32 | Outpatient (REF) | payer SELFPAY | END 2022-02-24 08:33 | disposition home or self-care (01) | LOC: HO.HAP 08:32 | PROVIDERS: Visit Provider Physician Assistant | DX: Z46.1 Encounter for fitting and adjustment of hearing aid (principal); H90.3 Sensorineural hearing loss, bilateral | CPT/HCPCS: 92592; V5299 ==

== ENCOUNTER → 2022-02-25 10:28 | Outpatient (BNVA) | payer SELFPAY | PROVIDERS: PCP Physician Assistant; Visit Provider Obstetrics & Gynecology | DX: Z13.89 Encounter for screening for other disorder (principal) ==

== ENCOUNTER 2022-03-09 10:28 | Outpatient (REF) | payer SELFPAY | END 2022-03-09 10:29 | disposition home or self-care (01) | LOC: HO.HAP 10:28 | PROVIDERS: Visit Provider Physician Assistant | DX: Z13.89 Encounter for screening for other disorder (principal) ==

== ENCOUNTER 2022-03-09 11:37 | Outpatient (REF) | payer MEDICARE, SELFPAY ==
--- NOTE | ~2022-03-09 | MM_ITS ---
EXAMINATION: MM SCREENING DIGITAL BREAST TOMOSYNTHESIS, BILATERAL CLINICAL INFORMATION: Screening. Asymptomatic. The lifetime risk of breast cancer based on the Tyrer-Cuzick Model is 8.4%. COMPARISON: Mammography: February 01, 2021 and studies dating back to March 21, 2013 TECHNIQUE: Digital breast tomosynthesis is performed in both the craniocaudal and mediolateral oblique views along with computer-aided detection (CAD). Synthesized 2D images are generated from the tomosynthesis. FINDINGS: There are scattered areas of fibroglandular density (ACR BI-RADS breast composition Category b). There are no significant masses, abnormal calcifications, or other abnormalities. MM/MM tomosynthesis screening BI IMPRESSION: No significant changes from prior exam. ASSESSMENT: BI-RADS 1: Negative RECOMMENDATION: Routine annual mammography screening. This patient's information was entered into a reminder system with a target due date for their next mammogram.
== END 2022-03-09 11:38 | disposition home or self-care (01) ==
LOC: HO.MAMMO 11:37
PROVIDERS: PCP Physician Assistant; Visit Provider Obstetrics & Gynecology
DX: Z12.31 Encounter for screening mammogram for malignant neoplasm of breast (principal)
CPT/HCPCS: 77063; 77067

== ENCOUNTER 2022-03-28 08:31 | Emergency (ER) | payer MEDICARE, SELFPAY ==
--- NOTE | ~2022-03-28 | US_ITS ---
EXAMINATION: US VENOUS ULTRASOUND WITH DOPPLER LOWER EXTREMITY, LEFT CLINICAL INFORMATION: Left calf pain and swelling for 2 days. COMPARISON: None TECHNIQUE: Ultrasound of the deep veins is performed from the hip to the calf with compression sonography and color and pulse Doppler assessment. Spectral analysis with color-flow imaging is performed. FINDINGS: There is normal venous compression and respiratory variation and augmented flow. The visualized common femoral vein, superficial femoral vein, profunda femoral vein, popliteal vein, and the trifurcation region shows no evidence of deep venous thrombosis. There is no significant popliteal fossa cyst. If the patient's symptoms persist, followup ultrasound in 5 days 7 days might be of value to exclude proximal propagation from a non-visualized calf vein. US/US venous duplex LE IMPRESSION: No DVT demonstrated in the left lower extremity.
[2022-03-28 09:06] VITALS: BP 182/70; PULSE 68; RESP 18; TEMP 36.2; O2SAT 97; BMI 32.4
--- NOTE | 2022-03-28 10:26 | ED_ITS ---
HPI - General Adult General Chief complaint: Extremity Problem Stated complaint: possible blood clot in leg Time Seen by Provider: 03/28/22 10:26 Source: patient Mode of arrival: ambulatory Limitations: no limitations History of Present Illness HPI narrative: Patient is a 56 year old assigned female at with a history of HTN presenting to the emergency department today with intermittent left calf pain. Patient states that she mostly gets the pain at night and it radiates down and into her foot from her left lower leg. Patient states that it lasts 5 minutes and then goes away. Patient states that nothing makes it worse and nothing makes it better. Patient denies any history of smoking. Patient denies any dizziness, lightheadedness, abdominal pain, nausea, vomiting, fever, chills, blurry vision, double vision, loss of vision, chest pain, difficulty breathing, shortness of breath, back pain, night sweats, pain with urination, increased urinary frequency, increased urinary urgency, blood in her urine or stool, syncope or a near syncopal episode, recent trauma or falls, bowel incontinence, bladder incontinence, bowel retention, bladder retention, or any other complaints at this time. Onset (ago): day(s) Location: left and lower extremity Radiation: distal Severity: mild Severity scale (1-10): 2 Relieving factors: none Exacerbating factors: none Associated symptoms: denies other symptoms Treatments prior to arrival: none Related Data Home Medications Medication Instructions Recorded Confirmed albuterol sulfate 90 mcg/actuation 1 puff PO Q4H PRN 11/17/19 10/30/21 aerosol inhaler fluticasone propionate 45 2 puff PO BID 11/17/19 10/30/21 mcg-salmeterol 21 mcg/actuation HFA inhaler Previous Rx's Medication Instructions Recorded blood pressure test kit-large #1 ea 01/27/21 cetirizine 10 mg tablet (Zyrtec) 10 mg PO DAILY #90 tabs 11/25/21 lisinopril 20 mg tablet 20 mg PO DAILY #90 tabs 02/05/22 meloxicam 15 mg tablet 15 mg PO DAILY 30 days #30 tabs 03/26/22 Allergies Allergy/AdvReac Type Severity Reaction Status Date / Time No Known Allergies Allergy Verified 02/25/22 10:38 [No Known Allergies*] Review of Systems Constitutional: Constitutional: Reports no additional constitutional complaints, Denies chills, Denies fever(s) and Denies night sweats Eyes: Eyes: Reports no additional eye complaints, Denies blurry vision, Denies change in vision, Denies diplopia, Denies eye discharge, Denies loss of vision and Denies eye pain ENT: Denies dizziness Cardiovascular: Cardiovascular: Reports no additional cardiovascular complaints, Denies chest pain, Denies lightheadedness, Denies Loss of Consciousness and Denies dyspnea Respiratory: Respiratory: Reports no additional respiratory complaints and Denies dyspnea Gastrointestinal: Gastrointestinal: Reports no additional gastrointestinal complaints, Denies abdominal pain, Denies melena, Denies hematochezia, Denies change in bowel habits and Denies change in stool character Genitourinary: Genitourinary: Denies hematuria, Denies urinary frequency, Denies dysuria, Denies urinary incontinence, Denies urinary hesitancy and Denies urinary urgency Musculoskeletal: Musculoskeletal: Reports no additional musculoskeletal complaints, Denies numbness and Denies tingling Comments: left lower leg pain Neurologic: Denies dizziness, Denies loss of vision, Denies numbness and Denies tingling Psychiatric: Psychiatric: Reports no additional psychiatric complaints Endocrine: Endocrine: Reports no additional endocrine complaints Hematologic/Lymphatic: Hematologic/Lymphatic: Reports no additional hematologic/lymphatic complaints Allergic/Immunologic: Allergic/Immunologic: Reports no additional allergic/immunologic complaints [facility] Past Medical History Attestation statement: The following information was validated with the patient. Source: old records reviewed and nursing notes reviewed Medical History Abnormal US (ultrasound) of abdomen COPD (chronic obstructive pulmonary disease) Surgical History History of cervical discectomy History of surgery on wrist Hx of colonoscopy (10/24/19) Hx of neck surgery Family History Family History Father Diabetes mellitus Lyme disease Mother Lung cancer Other Hyperglycemia Leukemia Social History Social History Housing: House Alcohol intake: never Patient Tobacco Use Status: Never used Tobacco Advance Directives: No Advance Directives Information Provided: No Current occupational status: employed 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 Physical Exam ED Vital Signs: Vital Signs - 24 hr 03/28/22 09:06 03/28/22 10:48 Temperature 97.2 F 98.1 F Pulse Rate 68 69 Respiratory Rate 18 19 Blood Pressure 182/70 H 181/88 H Pulse Oximetry 97 96 Oxygen Delivery Method Room Air Room Air BMI result Body Mass Index 32.4 Const General: cooperative, no acute distress, alert and awake Nutritional Appearance: well nourished Orientation/consciousness: patient oriented x3 Limitations: no limitations HENMT Head: Yes normal to inspection and Yes atraumatic Ears: hearing grossly normal bilaterally and external ears normal General nose exam: Normal external nose present, no nasal discharge noted and no epistaxis Face and sinus: Yes normal facial exam, No abrasion and No laceration Mouth: Normal oral and palatal mucosa present, no drooling and no muffled voice Eyes General: appearance normal, both eyes and all related structures Periorbital: periorbital findings normal Eyelids: Yes eyelids normal Conjunctivae: conjunctivae normal Pupils: Equal, round and reactive pupils present EOM: EOMs intact bilaterally Neck Neck: Yes normal visual inspection, Yes full ROM and Yes no lymphadenopathy Chest Chest palpation & inspection: normal inspection of the chest Resp Effort & Inspection: normal respiratory effort and able to speak in complete sentences Auscultation: clear to auscultation bilaterally Cardio Rate: regular rate Rhythm: regular rhythm GI Inspection: Yes normal to inspection Palpation (GI): Soft to palpation, not firm, nontender and no guarding Neuro General: patient oriented x3 and moves all extremities Cranial nerves: Yes Equal, round and reactive pupils present Cognition (Neuro): normal cognition Motor exam (neuro): 5/5 motor strength present throughout Sensory Exam: Normal double simultaneous stimulation for sensation Coordination: [id number] test normal Extrem General: Yes normal to inspection, Yes full ROM and Yes capillary refill normal Psych Appearance: grossly normal Mental Status: mental status grossly normal Affect: normal affect Attitude: cooperative Thought process: Normal thought process present Thought content: Normal thought content present Insight: Good insight present (Psych) Medical Decision Making Medical Decision Making MDM Narrative: Patient is a 56 year old assigned female at with a history of HTN presenting to the emergency department today with left leg pain. Patient's physical exam was unremarkable. Patient's left lower leg duplex US showed no acute process. I explained my physical exam findings as well as all test results to the patient. I answered all questions asked by the patient. I stressed the importance of the patient taking her medication as prescribed. I stressed the importance of the patient following up with her primary care provider. I stressed the importance of the patient returning to the emergency department immediately if her symptoms were to worsen or if she were to develop any dizziness, shortness of breath, difficulty breathing, chest pain, blurry vision, loss of vision, nausea, vomiting, abdominal pain, fever, chills, back pain, or any other complaints. Patient verbalized agreement and understanding with this treatment plan and discharge. Differential Diagnosis Differential Diagnoses: The differential diagnosis associated with the presentation includes left calf pain Radiology Impression Radiologist Impression: My interpretation is in agreement with the radiologist's impression of this imaging study. -------- EXAMINATION:? US VENOUS ULTRASOUND WITH DOPPLER LOWER EXTREMITY, LEFT CLINICAL INFORMATION:? Left calf pain and swelling for 2 days. COMPARISON:? None TECHNIQUE: Ultrasound of the deep veins is performed from the hip to the calf with compression sonography and color and pulse Doppler assessment. Spectral analysis with color-flow imaging is performed. FINDINGS: There is normal venous compression and respiratory variation and augmented flow. The visualized common femoral vein, superficial femoral vein, profunda femoral vein, popliteal vein, and the trifurcation region shows no evidence of deep venous thrombosis. ? There is no significant popliteal fossa cyst. If the patient's symptoms persist, followup ultrasound in 5 days 7 days might be of value to exclude proximal propagation from a non-visualized calf vein. US/US venous duplex LE IMPRESSION: No DVT demonstrated in the left lower extremity. Dictated By: Manjinder Lu MD Signed By: Electronically signed by Manjinder Lu MD 03/28/22 [id number] Discharge Plan Discharge Clinical Impression: Calf pain Patient Disposition: Home, Self-Care Instructions: Leg Pain (ED) Additional Instructions: Follow up with your primary care provider. Return to the emergency department immediately if your symptoms worsen or if you develop any dizziness, shortness of breath, difficulty breathing, chest pain, blurry vision, loss of vision, nausea, vomiting, abdominal pain, fever, chills, back pain, or any other complaints. Prescriptions: No Action cetirizine [Zyrtec] 10 mg tablet 10 mg PO DAILY Qty: 90 1RF lisinopril 20 mg tablet 20 mg PO DAILY Qty: 90 1RF meloxicam 15 mg tablet 15 mg PO DAILY 30 Days Qty: 30 1RF Advair HFA 45-21 mcg/actuation HFA aerosol inhaler 2 puff PO BID albuterol sulfate 90 mcg/actuation HFA aerosol inhaler 1 puff PO Q4H PRN (DME) blood pressure test kit-large Kit See Rx Instructions .Route Qty: 1 0RF Rx Instructions: As directed Referrals: Davie Orozco PA-C [Primary Care Provider] - Interventions: ED Discharge Assessment Last Done: 03/28/22 10:48 Discharge Date/Time: 03/28/22 10:50 Print Language: Faroese
[2022-03-28 10:48] VITALS: BP 181/88; PULSE 69; RESP 19; TEMP 36.7; O2SAT 96
== END 2022-03-28 10:50 | disposition home or self-care (01) ==
PROVIDERS: Emergency Provider Student in an Organized Health Care Education/Training Program; PCP Physician Assistant
DX: M79.662 Pain in left lower leg (principal); I10 Essential (primary) hypertension; Z79.899 Other long term (current) drug therapy
CPT/HCPCS: 93971; 99283; 99284

== ENCOUNTER 2022-05-01 09:24 | Outpatient (REF) | payer MEDICARE, MEDICAID, SELFPAY ==
--- NOTE | 2022-05-01 09:52 | MHC.AU.HA3 ---
Hearing Instrument Follow-Up- Binaural Date of Visit: 05/01/22 Right Ear: Make, Model, Color, Serial Number: Cochlear Implant Left Ear: Make, Model, Color, Serial Number: Ayo Ellis [id number] SN: [id number] Color: Domenicovamshi [facility] Service Plan: JAYLINANER *ANNUAL FEE OF $100.00 TO USE, NEEDED* Battery Size: 675 Earmold/Dome/CShell/SlimTip: Microsonic [id number] full shell Dispensed By: [facility] Follow-Up Summary: Fit new ear mold. Comfortable with no feedback in office. Cary has her old ear mold to keep as back up. Cary now has [employer] insurance. The ear mold will be billed to her insurance. Also discussed possibility of new left hearing aid through insurance. Cary is very interested in pursuing a new hearing aid - Advised to consider a ReSound hearing aid programmed by [facility] for binaural function with her Cochlear [employer] implant. Cary reported that she needs to contact [facility] for an appointment for her CI anyways and will discuss the possibility of starting the process for a new hearing aid with Pricila Castro at that time. Recommendations: Hearing instrument maintenance in 6 months, or sooner if needed. Please contact our clinic with any questions or concerns. Diagnosis Code(s): Primary Diagnosis: H90.3 Bilateral Sensorineural Hearing Loss Signature: Provider: Kareem Vanessa, [facility]
== END 2022-05-01 09:25 | disposition home or self-care (01) ==
LOC: HO.HAP 09:24
PROVIDERS: Visit Provider Physician Assistant
DX: Z46.1 Encounter for fitting and adjustment of hearing aid (principal); H90.3 Sensorineural hearing loss, bilateral
CPT/HCPCS: V5264

== ENCOUNTER 2022-09-01 09:10 | Outpatient (REF) | payer MEDICARE, MEDICAID, SELFPAY ==
[2022-09-01 09:59] LABS: Hematocrit 38.9 % (37.0-47.0); Hemoglobin 12.3 g/dl (12.0-16.0); Mean Corpuscular HGB Conc 31.6 g/dl (31.0-35.0); Mean Corpuscular Hemoglobin 28.5 pg (27.0-33.0); Mean Corpuscular Volume 90.3 fL (80.0-98.0); Mean Platelet Volume 9.7 fL (9.4-12.3); Platelet Count 244 X10*3/uL (160-400); Red Blood Count 4.31 X10*6/uL (4.20-5.50); Red Cell Distribution Width 12.6 % (11.0-16.0); White Blood Count 6.5 X10*3/uL (4.8-10.8)
[2022-09-01 10:57] LABS: Alanine Aminotransferase 16 U/L (0-31); Albumin Level 4.1 g/dL (3.5-5.0); Alkaline Phosphatase 96 U/L (39-117); Anion Gap 13 (12-20); Aspartate Amino Transferase 18 U/L (5-31); Bilirubin Total 0.5 mg/dL (0.0-1.0); Blood Urea Nitrogen 25 mg/dL (9-16); Calcium 9.2 mg/dL (8.4-10.2); Carbon Dioxide 30 mmol/L (22-29); Chloride 103 mmol/L (96-108); Cholesterol 161 mg/dL; Estimated Glomerular Filt Rate > 60; Glucose Fasting 114 mg/dL (60-99); HDL Cholesterol 63 mg/dL; LDL Cholesterol Calculated 89 mg/dl; Magnesium 2.1 mg/dL (1.6-2.6); Potassium 3.6 mmol/L (3.3-5.1); Sodium 142 mmol/L (135-145); Triglycerides 48 mg/dL
[2022-09-01 11:00] LABS: TSH reflex Free T4 0.92 uIU/mL (0.32-4.0)
[2022-09-01 11:53] LABS: Creatinine Urine 186.05 mg/dL; Microalbum/Creatinine Ratio Ur 5.3 ug/mg cr
== END 2022-09-01 09:11 | disposition home or self-care (01) ==
LOC: HO.LAB 09:10
PROVIDERS: PCP Physician Assistant; Visit Provider Physician Assistant
DX: I10 Essential (primary) hypertension (principal); M62.81 Muscle weakness (generalized)
CPT/HCPCS: 36415; 80053; 80061; 82043; 83735; 84443; 85027

== ENCOUNTER 2022-09-02 09:51 | Outpatient (AMB) | payer MEDICARE, MEDICAID, SELFPAY ==
[2022-09-02 09:59] VITALS: BP 154/86; PULSE 62; O2SAT 95; BMI 31.8
--- NOTE | 2022-09-02 09:59 | A.OFFVIS_ITS ---
Intake Vital Signs 09/02/22 09:59 Height 5 ft Weight 163 lb BMI 31.8 BP 154/86 H Blood Pressure Location Rt brachial Position Sitting Pulse 62 Pulse Source Pulse Oximeter Pulse Oximetry (%) 95 Oxygen Delivery Method Room Air Intake Visit Reasons: SAWV Intake Note: Patient here for a Subsequent Annual Wellness Visit Procurement Consultant Required: No Accompanied by: Self / Same As Patient Allergies No Known Allergies [No Known Allergies*] Allergy (Verified 09/02/22 10:13) Medication List - Last Reconciled 09/02/22 by EMILI Pedraza albuterol sulfate 90 mcg/actuation 1 inh inhalation QID PRN 30 days blood pressure test kit-large As directed lisinopril-hydrochlorothiazide 20-12.5 mg 1 tab PO DAILY 90 days meloxicam 15 mg PO DAILY 30 days HPI SAWV HPI Details Patient is a 56-year-old female presents today for subsequent wellness visit.? Patient of BONG Orozco. Patient is up-to-date with her health preventative screenings and immunizations. [place] of care was reviewed with the patient and she was provided with a screening schedule.? Patient has a healthcare proxy in place and she was provided with a MOLST form. ? [facility] Medical History Abnormal US (ultrasound) of abdomen COPD (chronic obstructive pulmonary disease) Surgical History History of cervical discectomy History of surgery on wrist Hx of colonoscopy (10/24/19) Hx of neck surgery Family History Father Diabetes mellitus Lyme disease Mother Lung cancer Other Hyperglycemia Leukemia Social History Housing: House Alcohol intake: never Patient Tobacco Use Status: Former Tobacco user Tobacco use type: Cigarette e-Cigarette/Vaping Use: Never Used Second Hand Smoke Exposure: No service: No Current occupational status: employed 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 Current occupational exposures/hazards: No Cognitive needs: No Hearing needs: No Vision needs: No Female Reproductive History Menstrual Age of Menarche: 10 Questionnaire Medicare Wellness Checkup What is your age?: 65-69 (56) What gender do you identify with?: female During the past 4 weeks, how much have you been bothered by emotional problems such as feeling anxious, depressed, irritable, sad or downhearted, and blue?: not at all During the past 4 weeks, has your physical & emotional health limited your social activities with family, friends, neighbors, or groups?: not at all During the past 4 weeks, how much bodily pain have you generally had?: very mild pain During the past 4 weeks, was someone available to help you if you needed & wanted help?: yes, as much as I wanted During the past 4 weeks, what was the hardest physical activity you could do for at least 2 minutes?: moderate Can you get to places out of walking distance without help? (For eg., can you travel alone on buses, taxis or drive your car?): Yes Can you go shopping for groceries or clothes without someone's help?: Yes Can you prepare your own meals?: Yes Can you do your housework without help?: Yes Because of any health problems, do you need the help of another person with your personal care needs such as eating, bathing, dressing or getting around the house?: No Can you handle your own money without help?: Yes During the past 4 weeks, how would you rate your health in general?: very good During the past 4 weeks how have things been going for you?: pretty well Are you having difficulties driving your car?: no Do you always fasten your seat belt when you are in a car?: yes, usually During past 4 weeks, have you been bothered by the following: never: Sexual problems?, Trouble eating well?, Teeth or denture problems?, Problems using the telephone? and Tiredness or fatigue? and sometimes: Falling or dizzy when standing up Have you fallen 2 or more times in the past year?: No Are you afraid of falling?: No Are you a smoker?: no During the past 4 weeks, how many drinks of wine, beer, or other alcoholic beverages did you have?: no alcohol at all Do you exercise for about 20 minutes 3 or more times a week?: yes, all the time Have you been given information to help with the following?: no: Hazards in your house that might hurt you? and no: Keeping track of your medications? How often do you have trouble taking medicines the way you have been told to take them?: I always take medicine as prescribed How confident are you that you can control & manage most of your health problems?: very confident What is your race?: White Mini Mental State Exam (MMSE) Orientation What is the (year) (season) (date) (day) (month)?: year, season, date, day and month Score Score: 5 Activity of Daily Living Bathing - sponge bath, tub bath or shower: receives no assistance (gets in/out by self, if usual bathing means Dressing - getting clothes from closets & drawers, including inner/outer garments & fasteners.: gets clothes & gets completely dressed without help Toileting - going to the 'toilet room' for urine/bowel elimination & cleaning self/arranging clothes: goes to toilet room, cleans self, arranges clothes without help Transfer: moves in & out of bed and chair without help (may use support object) Continence: controls urination/bowel movements completely by self Feeding: feeds self without help Total Score: 0 Information obtained from: patient Using telephone: independent Traveling: independent Shopping: independent Preparing meals: independent Housework: independent Taking medicine: independent Managing money: independent PHQ-9 Over the last 2 weeks, how often have you been bothered by any of the following problems? 1. Little interest or pleasure in doing things: not at all 2. Feeling down, depressed, or hopeless: not at all 3. Trouble falling or staying asleep, or sleeping too much: several days 4. Feeling tired or having little energy: several days 5. Poor appetite or overeating: not at all 6. Feeling bad about yourself - or that you are a failure or have let yourself or your family down: not at all 7. Trouble concentrating on things, such as reading the newspaper or watching television: not at all 8. Moving or speaking so slowly that other people could have noticed. Or the opposite - being so fidgety or restless that you have been moving around a lot more than usual: not at all 9. Thoughts that you would be better off or of hurting yourself in some way: not at all Total score: 2 Depression Screening Interpretation: Negative 42460 - PHQ-9 Billing: Yes Source: Developed by Drs. Dave Mercado, Will Barrios and colleagues, with an educational kamar from [employer]. AUDIT C Alcohol Use Questionnaire (AUDIT-C) 1. How often do you have a drink containing alcohol?: Never Total Score: 0 Score Reviewed/Action Taken: No Thrive Questionnaire Date Thrive assessed: 09/02/22 I am a: Patient What is your living situation today?: I have a steady place to live Within the past 12 months, did the food you bought not last and you didn't have the money to get more?: Never true Within the past 12 months, did you worry whether your food would run out before you got money to buy more?: Never true Do you have trouble paying for medicines?: No Do you have trouble getting transportation to medical appointments?: No Do you have trouble paying your heating and electricity bill?: No Do you have trouble taking care of your child, family member or friend?: No Do you have trouble with day-to-day activities such as bathing, preparing meals, shopping, managing finances, etc.?: No Are you currently unemployed and looking for a job?: No Are you interested in more education?: No Please select the resources that you would like help with: None Currently or been in a relationship where the following occur: no concerns reported Fall Risk Assessment Fall Risk Assessment Fall risk assessment: No Falls in past year SUSAN-7 AMB Questionnaire SUSAN-7 Date SUSAN - 7 assessed: 09/02/22 Feeling nervous, anxious, or on edge: 0 = Not at all Not being able to stop or control worryin = Not at all Worrying too much about different things: 0 = Not at all Trouble relaxin = Not at all Being so restless that it is hard to sit still: 0 = Not at all Becoming easily annoyed or irritable: 0 = Not at all Feeling afraid as if something awful might happen: 0 = Not at all Total SUSAN-7 score (0-4 normal; 5-9 mild; 10-14 moderate; 15-21 severe): 0 Source: Developed by Drs. Dave Mercado, Will Barrios and colleagues, with an educational kamar from [employer]. SUSAN-7 Assessment Billing SUSAN-7 Assessment Tool: SUSAN-7 Assessment 66348 Physical Exam Vital Signs: Last Vital Signs Pulse 62 09/02/22 09:59 BP 154/86 H 09/02/22 09:59 Pulse Ox 95 09/02/22 09:59 Oxygen Delivery Method Room Air 09/02/22 09:59 BMI result Body Mass Index 31.8 Const General: cooperative and no acute distress Orientation/consciousness: patient oriented x3 HEENT Other: Whisper test: fail Neuro Other: Balance: Normal Get up and walk: unable to Romberg: negative Tandem gait: unable to General: patient oriented x3 Assessment & Plan Assessment & Plan (1) Cochlear implant in place: Code(s): Z96.21 - Cochlear implant status Plan: Continue to follow-up with last [facility] at [facility] (2) SNHL (sensorineural hearing loss): Code(s): H90.5 - Unspecified sensorineural hearing loss Qualifiers: Laterality: bilateral Qualified Code(s): H90.3 - Sensorineural hearing loss, bilateral Plan: Continue to follow-up with last [facility] at [facility] (3) Annual physical exam: Code(s): Z00.00 - Encounter for general adult medical examination without abnormal findings Plan: Pap and HPV negative 2019, mammogram negative 02/2022 Colonoscopy 2019, repeat in 5 years per patient (4) HTN (hypertension): Code(s): I10 - Essential (primary) hypertension Qualifiers: Hypertension type: essential hypertension Qualified Code(s): I10 - Essential (primary) hypertension Plan: Continue current treatment Low-sodium diet (5) Obese: Code(s): E66.9 - Obesity, unspecified Qualifiers: Obesity type: due to excess calories Obesity classification: adult class 1 (BMI 30 - 34.9) Serious obesity comorbidity presence: without serious comorbidity Body mass index: BMI 32.0-32.9 Qualified Code(s): E66.09 - Other obesity due to excess calories; Z68.32 - Body mass index [BMI] 32.0-32.9, adult Plan: Healthy food choices and exercise as tolerated (6) COPD (chronic obstructive pulmonary disease): Code(s): J44.9 - Chronic obstructive pulmonary disease, unspecified Qualifiers: COPD type: chronic bronchitis Chronic bronchitis type: unspecified Qualified Code(s): J42 - Unspecified chronic bronchitis Plan: Stable Continue albuterol inhaler as needed Quality Reporting (2019) Fall Risk Screening ([facility] 139) Fall risk assessment: No Falls in past year Depression/Bipolar (159/160/161/177) PHQ-9: Total score: 2 Coding Level of Care Code Medicare Subsequent (G0439) Diagnoses Cochlear implant in place Z96.21 SNHL (sensorineural hearing loss) H90.3 Laterality: bilateral Annual physical exam Z00.00 HTN (hypertension) I10 Hypertension type: essential hypertension Obese E66.09; Z68.32 Obesity type: due to excess calories Obesity classification: adult class 1 (BMI 30 - 34.9) Serious obesity comorbidity presence: without serious comorbidity Body mass index: BMI 32.0-32.9 COPD (chronic obstructive pulmonary disease) J42 COPD type: chronic bronchitis Chronic bronchitis type: unspecified CPT Codes Advance Care Planning - Time spent: 1-15 minutes, not on file ([id number]) Additional Codes SUSAN-7 Assessment Billing - SUSAN-7 Assessment Tool: SUSAN-7 Assessment 50037 ([id number]) Advance Care Planning Advance Care Planning discussion: Exists, not on file Date of discussion: 09/02/22 Who was present: pt and rn occupational health Forms completed: None Time spent: 1-15 minutes, not on file Actual minutes spent: 2 Did not discuss due to Cultural/Spiritual beliefs: No
== END 2022-09-02 10:39 | disposition home or self-care (01) ==
PROVIDERS: PCP Physician Assistant; Visit Provider Nurse Practitioner Family
DX: Z00.00 Encounter for general adult medical examination without abnormal findings (principal); I10 Essential (primary) hypertension; Z68.32 Body mass index [BMI] 32.0-32.9, adult; J42 Unspecified chronic bronchitis; Z96.21 Cochlear implant status; H90.3 Sensorineural hearing loss, bilateral; E66.09 Other obesity due to excess calories
CPT/HCPCS: 1124F; G0439

== ENCOUNTER 2022-09-30 12:48 | Outpatient (AMB) | payer MEDICARE, MEDICAID, SELFPAY ==
[2022-09-30 12:50] VITALS: BP 146/80; PULSE 70; O2SAT 97; BMI 31.6
--- NOTE | 2022-09-30 12:50 | A.OFFPC_ITS ---
Vital Signs 09/30/22 12:50 Height 5 ft Weight 162 lb BMI 31.6 BP 146/80 H Blood Pressure Location Lt brachial Position Sitting Pulse 70 Pulse Source Pulse Oximeter Temp Source Skin Pulse Oximetry (%) 97 Oxygen Delivery Method Room Air Intake Visit Reasons: Leg Pain Intake Note: pt states group home left leg pain with no relief Analog Device Designer Required: No Allergies No Known Allergies [No Known Allergies*] Allergy (Verified 09/30/22 13:04) Medication List - Last Reconciled 09/30/22 by EMILI Pedraza albuterol sulfate 90 mcg/actuation 1 inh inhalation QID PRN 30 days blood pressure test kit-large As directed lisinopril-hydrochlorothiazide 20-12.5 mg 1 tab PO DAILY 90 days meloxicam 15 mg PO DAILY 30 days Tobacco use date assessed: 09/30/22 Dental Screening Dental Screen Date: 09/30/22 Did you have a dental visit in the last 12 months?: No Did you have a dental problem in the last 6 months where you did not have access to dental care?: No HPI Leg Pain HPI Details Patient is a 56-year-old female who presents today for an office visit due to left hip pain that radiate down to her knee and sometimes down to her foot for the past 1 month now. Patient reports pain in left groin usually. She reports that meloxicam helps with pain. She denies injury. Reports that pain is not to bad now. Reports that weather changes affect hip pain. Reports intermittent numbness and tingling in her left leg with intermittent burning sensation. Patient reports more pain when she is laying down, pain not to bad when she walks. No shortness of breath or chest pain. Medical history significant for COPD, hypertension, lumbar back pain, bilateral hip pain among others. 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 How often do you have a drink containing alcohol?: Never Total Score: 0 Score Reviewed/Action Taken: No SUSAN-7 AMB Questionnaire SUSAN-7 Date SUSAN - 7 assessed: 09/02/22 Source: Developed by Drs. Dave Mercado, Aleta Bal, Will Lopez and colleagues, with an educational kamar from [employer]. Review of Systems Const Denies body aches, Denies chills, Denies fever(s) and Denies headache(s) Eyes Denies change in vision ENT Denies dizziness, Denies otalgia, Denies headache(s), Denies nasal discharge, Denies sinus pain and Denies sore throat Card Denies chest pain, Denies edema, Denies lightheadedness and Denies dyspnea Resp Denies cough, Denies dyspnea and Denies wheezing GI Denies constipation, Denies diarrhea, Denies nausea and Denies vomiting Denies dysuria Musc Reports as per HPI, Reports back pain, Denies myalgias, Reports arthralgias, Denies joint swelling, Reports numbness and Reports tingling Skin/Breast Denies rash Neuro Denies dizziness, Denies headache(s), Reports numbness and Reports tingling Aller/Immun Denies wheezing Physical exam (Primary Care) Vital Signs: Last Vital Signs Pulse 70 09/30/22 12:50 BP 146/80 H 09/30/22 12:50 Pulse Ox 97 09/30/22 12:50 Oxygen Delivery Method Room Air 09/30/22 12:50 BMI result Body Mass Index 31.6 Tobacco/Smoking Status: Tobacco use Status Tobacco use date assessed 09/30/22 09/30/22 12:51 Patient Tobacco Use Status Former Tobacco user 09/30/22 12:51 Tobacco use type Cigarette 09/30/22 12:51 e-Cigarette/Vaping Use Never Used 09/30/22 12:51 Thrive Assessment: Date of Thrive Assessment Date Thrive assessed 09/02/22 09/30/22 12:51 Const General: cooperative and no acute distress Orientation/consciousness: patient oriented x3 HENAZ Head: Yes normocephalic and Yes atraumatic Face and sinus: Yes sinuses nontender Mouth: oropharynx normal and moist mucous membranes Throat: Yes posterior oropharynx normal Eyes General: appearance normal, both eyes and all related structures Neck Neck: Yes normal visual inspection, Yes full ROM and Yes no lymphadenopathy Resp Effort & Inspection: normal respiratory effort and able to speak in complete sentences Auscultation: clear to auscultation bilaterally, no crackles, no rales, no rhonchi and no wheezes Cardio Rate: regular rate Rhythm: regular rhythm Heart sounds: S1 normal heart sound present and S2 normal heart sound present GI Palpation (GI): Soft to palpation, not firm, nontender, no guarding and not rigid Auscultation: normal bowel sounds Back/Spine/Pelvis Thoracic/Lumbar Spine: No paraspinal muscle tenderness, No thoracic spinal tenderness, No lumbar spinal tenderness and straight leg raise positive (Left- patient reports chronic) Skin General skin exam: no rashes or lesions noted Neuro General: patient oriented x3 Gait exam (Neuro): Normal gait present Extrem General: Yes full ROM and No edema Left lower extremity: hip/thigh Details: normal ROM; no tenderness and no swelling Assessment and Plan Assessment & Plan (1) Left hip pain: Code(s): M25.552 - Pain in left hip Plan: Patient presents with left hip pain for the past 1 month, no injury. Physical exam of left hip with no abnormal findings. Will obtain left hip x-ray, will refer to physical therapy. Patient is to continue meloxicam daily p.r.n.. Encouraged heat/cold packs p.r.n.. Patient agreed with the plan. Will notify of x-ray results. Signs and symptoms reviewed when to notify provider or go to the emergency department. Orders: Orders PT Evaluation and Treatment Today M25.552 - Pain in left hip XR hip LT min 2V Today M25.552 - Pain in left hip Coding Level of Care Code Est Pt Level 3 (50262) Diagnoses Left hip pain M25.552
== END 2022-09-30 13:34 | disposition home or self-care (01) ==
PROVIDERS: PCP Physician Assistant; Visit Provider Nurse Practitioner Family
DX: M25.552 Pain in left hip (principal)
CPT/HCPCS: 99213

== ENCOUNTER 2022-10-14 09:49 | Outpatient (REF) | payer MEDICARE, MEDICAID, SELFPAY ==
--- NOTE | ~2022-10-14 | XR_ITS ---
EXAMINATION: XR HIP, BILATERAL CLINICAL INFORMATION: Bilateral hip pain COMPARISON: 10/31/2021 TECHNIQUE: Two views of each hip. FINDINGS: Mineralization is normal. There is no fracture or dislocation. The hip joint spaces are preserved and symmetric, without arthritic change. The periarticular soft tissues appear unremarkable. There is a probable osteochondroma of the lateral proximal shaft of the right femur which appears unchanged from prior examination. XR/XR hip RT min 2V IMPRESSION: No significant abnormality involving the hips.
--- NOTE | ~2022-10-14 | XR_ITS ---
EXAMINATION: XR HIP, BILATERAL CLINICAL INFORMATION: Bilateral hip pain COMPARISON: 10/31/2021 TECHNIQUE: Two views of each hip. FINDINGS: Mineralization is normal. There is no fracture or dislocation. The hip joint spaces are preserved and symmetric, without arthritic change. The periarticular soft tissues appear unremarkable. There is a probable osteochondroma of the lateral proximal shaft of the right femur which appears unchanged from prior examination. XR/XR hip LT min 2V IMPRESSION: No significant abnormality involving the hips.
== END 2022-10-14 09:50 | disposition home or self-care (01) ==
LOC: HO.XRAY 09:49
PROVIDERS: PCP Physician Assistant; Visit Provider Nurse Practitioner Family
DX: M25.551 Pain in right hip (principal); M25.552 Pain in left hip
CPT/HCPCS: 73502

== ENCOUNTER 2022-11-12 12:57 | Outpatient (AMB) | payer MEDICARE, MEDICAID, SELFPAY ==
--- NOTE | 2022-11-12 12:50 | MHC.OFFVIS ---
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 Patient reports that she has had pain for about a year now, her pain is felt in the groin area and travels around to the back. Left is worse than the right. 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 She has pain with walking, dancing, and using stairs. She denies any groin pain. She denies any prior treatment and says her pain has been present for ~1 year. She is taking Meloxicam which she says is helpful She has a hx of C-spine arthritis and had no relief from neck injections in the past [facility] Medical History (Updated 11/12/22 @ 13:41 by Jayjay Ojeda MD) Iliotibial band syndrome affecting left lower leg Greater trochanteric bursitis of left hip COPD (chronic obstructive pulmonary disease) Abnormal US (ultrasound) of abdomen Surgical History History of surgery on wrist Hx of neck surgery Hx of colonoscopy (10/24/19) History of cervical discectomy Family History Father Diabetes mellitus Lyme disease Mother Lung cancer Other Hyperglycemia Leukemia Social History Housing: House Alcohol intake: never Patient Tobacco Use Status: Former Tobacco user Tobacco use type: Cigarette e-Cigarette/Vaping Use: Never Used Second Hand Smoke Exposure: No service: No Current occupational status: employed 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 Current occupational exposures/hazards: No Cognitive needs: No Hearing needs: No Vision needs: No Female Reproductive History Menstrual Age of Menarche: 10 Review of Systems Const All systems reviewed & are unremarkable except as noted in HPI and below Physical Exam Vital Signs: BMI result Body Mass Index 31.6 Const General: no acute distress, alert and awake Orientation/consciousness: patient oriented x3 HEENT Head: Yes normocephalic and Yes atraumatic Eyes EOM: EOMs intact bilaterally Resp Effort & Inspection: normal respiratory effort and able to speak in complete sentences Cardio Jugular venous distension: no JVD Skin General skin exam: turgor normal Rashes: no rashes Neuro General: patient oriented x3 Extrem Other: Left Leg: TTP greater trochanter TTP along lateral leg & IT band Psych Appearance: grossly normal Affect: normal affect Attitude: cooperative Results Reviewed Results Reviewed: I personally reviewed relevant radiographs. Mild bilateral hip OA Assessment & Plan Assessment & Plan (1) Greater trochanteric bursitis of left hip: Code(s): M70.62 - Trochanteric bursitis, left hip Plan: This is a 57 year old woman with left greater trochanter bursitis & IT band syndrome. She has pain with WB activities, such as ambulation, dancing, or using stairs. She finds some relief from Meloxicam and denies any other treatment. I discussed the pathophysiology of her conditions. She is not interested in injections at this time as she found no relief from C-spine injections in the past. I ordered PT and recommend she remain active as tolerated. She can follow up prn. (2) Iliotibial band syndrome affecting left lower leg: Code(s): M76.32 - Iliotibial band syndrome, left leg Plan Scribed for Jayjay Ojeda MD by Oz Ortiz, medical assembly, on 11/12/22 at 1:45 PM, EST. Orders: Orders PT Evaluation and Treatment Today M70.62 - Trochanteric bursitis, left hip, M76.32 - Iliotibial band syndrome, left leg Coding Level of Care Code New Pt Level 3 (20923) Diagnoses Greater trochanteric bursitis of left hip M70.62 Iliotibial band syndrome affecting left lower leg M76.32
[2022-11-12 12:58] VITALS: BMI 31.6
== END 2022-11-12 13:43 | disposition home or self-care (01) ==
PROVIDERS: PCP Physician Assistant; Visit Provider Orthopaedic Surgery
DX: M70.62 Trochanteric bursitis, left hip (principal); M76.32 Iliotibial band syndrome, left leg; M16.0 Bilateral primary osteoarthritis of hip
CPT/HCPCS: 99203

== ENCOUNTER → 2022-11-12 12:57 | Outpatient (BNVA) | payer MEDICARE, MEDICAID, SELFPAY | PROVIDERS: PCP Physician Assistant; Visit Provider Orthopaedic Surgery ==

== ENCOUNTER 2022-11-26 09:24 | Outpatient (REF) | payer MEDICARE, MEDICAID, SELFPAY | END 2022-11-26 09:25 | disposition home or self-care (01) | LOC: HO.HAP 09:24 | PROVIDERS: Visit Provider Physician Assistant | DX: Z46.1 Encounter for fitting and adjustment of hearing aid (principal); H90.3 Sensorineural hearing loss, bilateral | CPT/HCPCS: 92592; 99499; V5266 ==

== ENCOUNTER 2023-01-25 09:27 | Outpatient (AMB) | payer MEDICARE, MEDICAID, SELFPAY ==
--- NOTE | 2023-01-25 09:32 | A.OFFPC_ITS ---
Vital Signs 01/25/23 09:33 Height 5 ft Weight 160 lb BMI 31.2 BP 110/72 Blood Pressure Location Lt brachial Position Sitting Pulse 78 Pulse Source Pulse Oximeter Pulse Oximetry (%) 98 Oxygen Delivery Method Room Air Intake Visit Reasons: Annual Exam Intake Note: Patient is here today for a physical. Manager Image Required: No Social Media Community Manager: Not Required per policy Accompanied by: Self / Same As Patient Allergies No Known Allergies [No Known Allergies*] Allergy (Verified 01/25/23 09:55) Medication List - Last Reconciled 01/25/23 by Davie Orozco PA-C albuterol sulfate 90 mcg/actuation 1 inh inhalation QID PRN 30 days blood pressure test kit-large As directed lisinopril-hydrochlorothiazide 20-12.5 mg 1 tab PO DAILY 90 days meloxicam 15 mg PO DAILY 30 days Tobacco use date assessed: 01/25/23 Dental Screening Dental Screen Date: 01/25/23 Did you have a dental visit in the last 12 months?: No Did you have a dental problem in the last 6 months where you did not have access to dental care?: No Was dental information given to patient?: No HPI Annual Exam HPI Details Patient is a 57 year-old female here today for for annual physical. Patient has a past medical history significant for obesity, sensorineural hearing loss? ( has choclear inplant) , hypertension., Concerns--> has been having increased stress in her life due to family issues . She does report feeling somewhat tired and attributes to her busy lifestyle. .. Impiared glucose metabolism: Most recent fasting blood sugar 114. She has been working on lifestyle changes to reduce her sugar and carbohydrates in her diet. .. Arthritis: Has started on meloxicam which has been very beneficial to patient. She reports a lot of pain relief when using meloxicam. She is somewhat concerned about long-term side effects I will try to use on a p.r.n. basis. Did discuss the possibility of trying topical NSAID on a p.r.n. basis as well. .. COPD : Has been having SOB on exertion and chest tightness.? She does use her albuterol inhaler though does not feel it is helpful.? Denies any smoking. .. HTN: . Blood pressure in office today acceptable. Will continue her current dose of lisinopril hydrochlorothiazide Colon cancer screening: Colonoscopy done in 2019 ( Dr Mace) - repeat 5 years. Mammogram: Done in February 2022 BI-RADS 1 Vaccines: Up-to-date with COVID vaccine, tetanus vaccine, pneumonia vaccine, considering shingles vaccine PFSH Medical History (Updated 01/26/23 @ 13:22 by Davie Orozco PA-C) Allergic rhinitis Iliotibial band syndrome affecting left lower leg Greater trochanteric bursitis of left hip COPD (chronic obstructive pulmonary disease) Abnormal US (ultrasound) of abdomen Surgical History History of surgery on wrist Hx of neck surgery Hx of colonoscopy (10/24/19) History of cervical discectomy Family History (Updated 01/25/23 @ 10:02 by Davie Orozco PA-C) Father Diabetes mellitus Lyme disease Parkinson disease Mother Lung cancer Other Hyperglycemia Leukemia Social History Housing: House Alcohol intake: never Patient Tobacco Use Status: Former Tobacco user Tobacco use type: Cigarette e-Cigarette/Vaping Use: Never Used Second Hand Smoke Exposure: No service: No Current occupational status: employed 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 Dave Mercado, Aleta Bal, Will Lopez and colleagues, with an educational kamar from [employer]. Review of Systems Const Denies body aches, Denies chills, Denies excessive sweating, Denies fatigue, Denies fever(s) and Denies headache(s) Eyes Denies blurry vision ENT Denies dysphagia, Denies vertigo, Denies dizziness, Denies headache(s), Denies hearing loss and Denies tinnitus Card Denies chest pain, Denies chest pain with activity, Denies syncope, Denies irregular heart rhythm and Denies dyspnea Resp Denies chest congestion, Denies cough, Denies hemoptysis, Denies dyspnea and Denies wheezing GI Denies abdominal pain, Denies melena, Denies hematochezia, Denies coffee ground emesis, Denies dysphagia, Denies diarrhea, Denies nausea and Denies vomiting Denies urinary frequency, Denies dysuria, Denies urinary hesitancy and Denies urinary urgency Musc Denies arthralgias, Denies limited range of motion, Denies muscle cramps and Denies muscle weakness Skin/Breast Denies rash and Denies skin ulcer Neuro Denies Abnormal speech present, Denies confusion, Denies vertigo, Denies dizziness, Denies syncope, Denies headache(s), Denies memory loss and Denies seizure-like activity Psych Denies anxiety, Denies confusion, Denies depression, Denies memory loss, Denies panic attacks and Denies paranoia Endo Denies excessive sweating, Denies fatigue, Denies flushing, Denies polydipsia and Denies polyuria Aller/Immun Denies wheezing Physical exam (Primary Care) Vital Signs: Last Vital Signs Pulse 78 01/25/23 09:33 BP 110/72 01/25/23 09:33 Pulse Ox 98 01/25/23 09:33 Oxygen Delivery Method Room Air 01/25/23 09:33 BMI result Body Mass Index 31.2 BMI Assessment/Plan discussion: High Tobacco/Smoking Status: Tobacco use Status Tobacco use date assessed 01/25/23 01/25/23 09:40 Patient Tobacco Use Status Former Tobacco user 01/25/23 09:40 Tobacco use type Cigarette 01/25/23 09:40 e-Cigarette/Vaping Use Never Used 01/25/23 09:40 Thrive Assessment: Date of Thrive Assessment Date Thrive assessed 09/02/22 01/25/23 09:40 Const Other: OBESE General: cooperative, comfortable, no acute distress, alert and awake; No confusion Orientation/consciousness: oriented to person, oriented to place, patient oriented x3 and No confusion HENMT Head: Yes normocephalic Ears: external ears normal and TM's normal bilaterally Face and sinus: No sinus tenderness Mouth: Normal oral and palatal mucosa present and tongue normal Teeth and gingiva: dentition normal and gingiva normal Throat: Yes posterior oropharynx normal, Yes tonsils normal and Yes uvula midline Eyes Conjunctivae: conjunctivae normal Sclerae: sclerae normal Pupils: Equal, round and reactive pupils present EOM: EOMs intact bilaterally Direct Ophthalmoscopy: No no photophobia Neck Neck: Yes no lymphadenopathy, No tender and Yes no JVD Thyroid: Thyroid normal Carotids: no bruits Chest Chest palpation & inspection: no tenderness Resp Effort & Inspection: normal respiratory effort, no audible wheezes, not labored and no stridor Auscultation: no crackles, no rales, no rhonchi and no wheezes Cardio Jugular venous distension: no JVD Rate: regular rate, not bradycardic and not tachycardic Rhythm: regular rhythm Bruits: no carotid bruits Peripheral pulses: Peripheral pulses 2+ throughout GI Inspection: Yes normal to inspection, No abdominal wall ecchymosis and No visible herniation Palpation (GI): Soft to palpation, nontender, no guarding, not rigid and No hepatosplenomegaly present Auscultation: normoactive bowel sounds General: Yes no CVA tenderness Back/Spine/Pelvis Back: no CVA tenderness and No back tenderness Cervical Spine: cervical ROM normal Thoracic/Lumbar Spine: thoracic and lumbar spine normal to inspection, straight leg raise negative bilaterally, No thoraco-lumbar ROM limited and No lumbar spinal tenderness Skin Lesions: no lesions Rashes: no rashes Wounds: no wounds Neuro General: oriented to person, oriented to place, patient oriented x3, CN's II-XI intact bilaterally and No confusion Cranial nerves: Yes Equal, round and reactive pupils present and Yes Normal accommodation reflex present Cognition (Neuro): normal cognition Speech: No Abnormal speech present Gait exam (Neuro): Normal gait present Motor exam (neuro): 5/5 motor strength present throughout Extrem Right upper extremity: full ROM; no cyanosis Left upper extremity: full ROM; no cyanosis Right lower extremity: no edema Left lower extremity: no edema Psych Appearance: grossly normal Mental Status: mental status grossly normal Affect: normal affect Attitude: cooperative Thought process: Normal thought process present Assessment and Plan Assessment & Plan (1) Annual physical exam: Code(s): Z00.00 - Encounter for general adult medical examination without abnormal findings (2) HTN (hypertension): Code(s): I10 - Essential (primary) hypertension Qualifiers: Hypertension type: essential hypertension Qualified Code(s): I10 - Essential (primary) hypertension Plan: Patient's blood pressure acceptable today in office. She denies any chest discomfort, headaches or vision issues. Goal blood pressure be below 140/90 (3) COPD (chronic obstructive pulmonary disease): Code(s): J44.9 - Chronic obstructive pulmonary disease, unspecified Qualifiers: COPD type: chronic bronchitis Chronic bronchitis type: unspecified Qualified Code(s): J42 - Unspecified chronic bronchitis Plan: Patient continues to have shortness of breath on exertion though at rest reports she is fine. She does have albuterol available to her to use on a p.r.n. basis. (4) Obese: Code(s): E66.9 - Obesity, unspecified Qualifiers: Body mass index: BMI 32.0-32.9 Obesity classification: adult class 1 (BMI 30 - 34.9) Obesity type: due to excess calories Serious obesity comorbidity presence: without serious comorbidity Qualified Code(s): E66.09 - Other obesity due to excess calories; Z68.32 - Body mass index [BMI] 32.0-32.9, adult Plan: Patient does understand her BMI is over 30 will work on being more physically active and adapting to better eating habits to reduce her weight. (5) Impaired glucose metabolism: Code(s): R73.09 - Other abnormal glucose Plan: Patient's most recent fasting blood sugar 114. She will continue on low carbohydrate diet and trying to be more physically active. Will continue to follow fasting blood sugar and check an A1c. (6) Cochlear implant in place: Code(s): Z96.21 - Cochlear implant status Plan: Followed by ENT specialist, has a cochlear implant on right-sided. Has hearing aid on left side. Orders: Orders Comprehensive [place]. Panel Fast 01/25/23 I10 - Essential (primary) hypertension Hemoglobin A1c 01/25/23 R73.09 - Other abnormal glucose Microalbumin, Random (w Creat) 01/25/23 I10 - Essential (primary) hypertension Coding Level of Care Code Est Pt Prev Care 40-64y([id number]) Diagnoses Annual physical exam Z00.00 Essential hypertension I10 Hypertension type: essential hypertension Chronic bronchitis, unspecified chronic bronchitis type J42 COPD type: chronic bronchitis Chronic bronchitis type: unspecified Class 1 obesity due to excess calories without serious comorbidity with body mass index (BMI) of 32.0 to 32.9 in adult E66.09; Z68.32 Body mass index: BMI 32.0-32.9 Obesity classification: adult class 1 (BMI 30 - 34.9) Obesity type: due to excess calories Serious obesity comorbidity presence: without serious comorbidity Impaired glucose metabolism R73.[address] Z96.21
[2023-01-25 09:33] VITALS: BP 110/72; PULSE 78; O2SAT 98; BMI 31.2
== END 2023-01-25 10:21 | disposition home or self-care (01) ==
PROVIDERS: PCP Physician Assistant; Visit Provider Physician Assistant
DX: Z00.00 Encounter for general adult medical examination without abnormal findings (principal); J42 Unspecified chronic bronchitis; E66.09 Other obesity due to excess calories; Z68.32 Body mass index [BMI] 32.0-32.9, adult; I10 Essential (primary) hypertension; R73.09 Other abnormal glucose; Z96.21 Cochlear implant status
CPT/HCPCS: 99396

== ENCOUNTER 2023-02-17 17:38 | Emergency (ER) | payer MEDICARE, MEDICAID, SELFPAY ==
[2023-02-17 17:49] VITALS: BP 140/70; BP 145/72; PULSE 80; PULSE 84; RESP 17; TEMP 36.8; O2SAT 98; BMI 26.6
--- NOTE | 2023-02-17 17:58 | ED.CHESTPAIN ---
HPI - Chest Pain General Chief Complaint: Chest Pain Stated Complaint: CP X1 HOUR PER EMS Time Seen by Provider: 02/17/23 17:47 Source: patient and EMS Mode of arrival: EMS Limitations: no limitations History of Present Illness HPI narrative: A 57-year-old female came in by EMS for evaluation of chest pain that started about 1 hour before arrival. Patient describes the pain as epigastric tightness and pain and mid sternal chest pain, pain has been constant since it started 1 hour ago which is about 1 hour after eat fish, no shortness of breath, nausea, or vomiting. No recent travel, no lower extremity swelling or tenderness, no history of chest pain however reviewing patient's record patient is been evaluated in the emergency department for chest pain in the past. Normal bowel movement earlier today, Related Data Previous Rx's Medication Instructions Recorded blood pressure test kit-large #1 ea 01/27/21 albuterol sulfate 90 mcg/actuation 1 inh inhalation QID PRN shortness 07/23/22 aerosol inhaler of breath or wheezing 30 days #8.5 grams lisinopril 20 1 tab PO DAILY 90 days #90 tabs 01/13/23 mg-hydrochlorothiazide 12.5 mg tablet meloxicam 15 mg tablet 15 mg PO DAILY 30 days #30 tabs 01/13/23 omeprazole 20 mg capsule,delayed 20 mg PO DAILY #14 caps 02/17/23 release Allergies Allergy/AdvReac Type Severity Reaction Status Date / Time No Known Allergies Allergy Verified 01/25/23 09:55 [No Known Allergies*] Review of Systems Review of Systems: All other systems are reviewed and are negative Constitutional: Reports as per HPI and Reports no additional constitutional complaints Eyes: Reports as per HPI and Reports no additional eye complaints Reports system reviewed and no additional complaints, except as documented Cardiovascular: Reports as per HPI and Reports no additional cardiovascular complaints Respiratory: Reports as per HPI and Reports no additional respiratory complaints Gastrointestinal: Reports as per HPI and Reports no additional gastrointestinal complaints Genitourinary: Reports no additional female genitourinary complaints Musculoskeletal: Reports no additional musculoskeletal complaints Skin/Breast: Reports system reviewed and no additional complaints, except as docu Psychiatric: Reports no additional psychiatric complaints Endocrine: Reports no additional endocrine complaints Hematologic/Lymphatic: Reports no additional hematologic/lymphatic complaints Allergic/Immunologic: Reports no additional allergic/immunologic complaints Reports system reviewed and no additional complaints, except as documented and Reports Abnormal speech present PMFSH Past Medical History Onset Date is defined in the Problem List Problems that require an onset date and time if occurred within 24 hrs of arrival to the ED Aortic Dissection and Rupture; Neurologic impairment; Cardiopulmonary Arrest; Endotracheal Intubation; Insertion or Replacement of Mechanical Circulatory Assist Device Medical History Allergic rhinitis Iliotibial band syndrome affecting left lower leg Greater trochanteric bursitis of left hip COPD (chronic obstructive pulmonary disease) Abnormal US (ultrasound) of abdomen Surgical History History of surgery on wrist Hx of neck surgery Hx of colonoscopy (10/24/19) History of cervical discectomy Family History Family History Father Diabetes mellitus Lyme disease Parkinson disease Mother Lung cancer Other Hyperglycemia Leukemia Social History Social History Housing: House Alcohol intake: never Patient Tobacco Use Status: Former Tobacco user Tobacco use type: Cigarette e-Cigarette/Vaping Use: Never Used Second Hand Smoke Exposure: No Advance Directives: Yes Advance Directives Information Provided: No Advance Directives on File: No service: No Current occupational status: employed 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 Blood pressure elevated. Heart rate normal. Respiratory rate normal. Temperature normal. Oxygen saturation normal. Appearance: Alert. Oriented X3. No acute distress. Head: Normal external exam. Normocephalic. Atraumatic. No [place] signs noted. No raccoon eyes noted Eyes: PERRLA. EOMI. Conjunctiva and sclera normal. Eyelids normal. ENT: TM's Normal. Pharynx normal. Uvula midline. Moist mucous membranes. No trismus noted. No drooling noted. No muffled voice noted. Neck: Normal inspection. Neck supple. FROM. No adenopathy. Thyroid Normal. No meningeal signs. No neck mass noted. CVS: Normal heart rate and rhythm. Heart sound normal. No murmurs noted. Pulses normal throughout. Respiratory: No respiratory distress. Painless inspiration. Breath sounds normal. No wheezes/rales/rhonchi noted. Mid lower sternal point of tenderness, no step-off, no deformity. No accessory muscle usage noted or decreased air movement noted. Abdomen: Soft, mid epigastric tenderness no rebound tenderness. Bowel sounds normal in all 4 quadrants. No distention noted. No organomegaly noted. No visible injury noted. Back: No CVA tenderness. Full range of motion noted. Skin: Skin warm and dry. Normal skin color. Normal skin turgor. No rashes/lesions/lacerations noted. Extremities: No lower extremity edema. Extremities exhibit normal range of motion. Extremities nontender. Neuro: Oriented X 3. Cranial nerve exam: II-XII are grossly intact No motor deficit. No sensory deficit. Reflexes normal. Course Reevaluation(s) Reevaluation #1: A 57-year-old female came in with epigastric/chest pain physical exam and history is consistent with likely gastritis versus acid reflux will start the patient on Prilosec and follow up with Gastroenterology. Unremarkable EKG with-2 troponin and D-dimer. Time: 20:49 Medications Administered Discontinued Medications Generic Name Dose Route Start Last Admin Trade Name Freq PRN Reason Stop Dose Admin Al Hydroxide/Mg Hydroxide 30 ml 02/17/23 17:56 02/17/23 18:47 Magnesium Hydrox/Alum Hydrox 30 Ml Oral.Susp PO 02/17/23 17:57 30 ml ONCE ONE Administration Famotidine 20 mg 02/17/23 17:56 02/17/23 18:47 Famotidine/Pf 20 Mg/2 Ml Vial IVPUSH 02/17/23 17:57 20 mg ONCE ONE Administration Medical Decision Making Differential Diagnosis Differential Diagnoses: The differential diagnosis associated with the presentation includes (Pulmonary embolism, ACS, pneumonia, pneumothorax, gastritis, acid reflux, severe anemia, electrolyte abnormality.) Admission/Observation Consideration of admission/observation: Escalation of care including admission/observation considered Lab Data MDM Lab Attestation statement: I reviewed the patient's lab results. 02/17/23 18:13 02/17/23 18:11 Labs: Lab Results 02/17/23 02/17/23 Range/Units 18:11 18:13 WBC 9.5 (4.8-10.8) X10*3/uL RBC 4.65 (4.20-5.50) X10*6/uL Hgb 13.6 (12.0-16.0) g/dl Hct 41.0 (37.0-47.0) % MCV 88.2 (80.0-98.0) fL MCH 29.2 (27.0-33.0) pg MCHC 33.2 (31.0-35.0) g/dl RDW 12.3 (11.0-16.0) % Plt Count 245 (160-400) X10*3/uL MPV 9.3 L (9.4-12.3) fL Immature Gran % (Auto) 0.3 (0.0-0.4) % Neut % (Auto) 72.0 (45-73) % Lymph % (Auto) 18.6 L (20-40) % [place] % (Auto) 7.9 (2-11) % Eos % (Auto) 1.0 (0-4) % Baso % (Auto) 0.2 (0-2) % Lymph # (Auto) 1.8 (1.2-4.9) X10*3/uL [place] # (Auto) 0.8 (0.1-1.2) X10*3/uL Eos # (Auto) 0.1 (0.0-0.4) X10*3/uL Baso # (Auto) 0.0 (0.0-0.2) X10*3/uL Abs Immat Gran (auto) 0.03 (0.00-0.03) X10*3/uL Absolute Neuts (auto) 6.9 (2.0-8.3) x10*3/uL Absolute Nucleated RBC 0.000 (0.0-0.012) X10*3/uL Nucleated RBC % (auto) 0.0 (0.0-0.2) /100WBC D-Dimer High Sensitivty 195 NG/ML Sodium 143 (135-145) mmol/L Potassium 3.7 (3.3-5.1) mmol/L Chloride 105 (96-108) mmol/L Carbon Dioxide 31 H (22-29) mmol/L Anion Gap 11 L (12-20) BUN 20 H (9-16) mg/dL Creatinine 0.74 (0.5-1.4) mg/dL Estim Creat Clear Calc 90.5 Estimated GFR > 60 Random Glucose 102 (60-115) mg/dL Calcium 9.7 (8.4-10.2) mg/dL Total Bilirubin 0.3 (0.0-1.0) mg/dL Direct Bilirubin 0.1 (0.0-0.5) mg/dL AST 19 (5-31) U/L ALT 18 (0-31) U/L Alkaline Phosphatase 101 (39-117) U/L Troponin I High Sens < 2.7 (<3.5-17.0) ng/L B-Natriuretic Peptide 19 (<100) pg/mL Total Protein 7.4 (6.5-8.0) g/dL Albumin 4.3 (3.5-5.0) g/dL Lipase 19 (8-78) U/L Independent Interpretation I performed an independent interpretation of an: EKG (Normal sinus rhythm at 73 beats per minute, left axis deviation, normal intervals, nonspecific T-wave changes in the inferior lead, no significant change from prior EKG..) and Plain X-Ray (Unremarkable examination.) Radiology Impression Discussion of test interpretation with radiology: I have reviewed the radiologist's reading. Discharge Plan Discharge Clinical Impression: Atypical chest pain Gastritis Qualifiers: Gastritis type: unspecified gastritis Chronicity: unspecified Gastritis bleeding: without bleeding Qualified Code(s): K29.70 - Gastritis, unspecified, without bleeding Patient Disposition: Home, Self-Care Instructions: Gastritis (ED) Prescriptions: New omeprazole 20 mg capsule,delayed release(DR/EC) 20 mg PO DAILY Qty: 14 0RF No Action lisinopril-hydrochlorothiazide 20-12.5 mg tablet 1 tab PO DAILY 90 Days Qty: 90 1RF meloxicam 15 mg tablet 15 mg PO DAILY 30 Days Qty: 30 3RF (DME) blood pressure test kit-large Kit See Rx Instructions .Route Qty: 1 0RF Rx Instructions: As directed albuterol sulfate 90 mcg/actuation HFA aerosol inhaler 1 inh inhalation QID PRN (Reason: shortness of breath or wheezing) 30 Days Qty: 8.5 2RF Referrals: Asa Turner MD [Physician] -
[2023-02-17 20:00] VITALS: BP 140/68; PULSE 89; RESP 18; TEMP 36.6; O2SAT 97
[2023-02-17 22:08] VITALS: BP 142/72; PULSE 72; RESP 18; TEMP 36.9; O2SAT 98
--- NOTE | 2023-02-17 22:09 | MHC.EDTECH ---
Hourly rounds and vitals completed, second trop. obtained and sent to lab, attempted to get a urine sample, patient is unable to at this time.
== END 2023-02-17 23:15 | disposition home or self-care (01) ==
PROVIDERS: Emergency Provider Emergency Medicine
DX: R07.9 Chest pain, unspecified (principal); K29.70 Gastritis, unspecified, without bleeding; J44.9 Chronic obstructive pulmonary disease, unspecified; M70.62 Trochanteric bursitis, left hip; Z79.899 Other long term (current) drug therapy
CPT/HCPCS: 36415; 71045; 80048; 80076; 83690; 83880; 84484; 85025; 85379; 93005; 96374; 99284

== ENCOUNTER → 2023-02-17 17:47 | Outpatient (BNV) | payer MEDICARE, MEDICAID, SELFPAY | PROVIDERS: Emergency Provider Emergency Medicine; Visit Provider Internal Medicine Cardiovascular Disease | DX: R07.9 Chest pain, unspecified (principal) | CPT/HCPCS: 93010 ==

== ENCOUNTER 2023-02-26 09:18 | Outpatient (REF) | payer MEDICARE, MEDICAID, SELFPAY ==
--- NOTE | 2023-02-26 15:22 | MHC.AU.HA3 ---
Hearing Instrument Follow-Up- Binaural Date of Visit: 02/26/23 Right Ear: Make, Model, Color, Serial Number: Cochlear Implant Left Ear: Make, Model, Color, Serial Number: Ayo Ellis [id number] SN: [id number] Color: Yolanda [employer] Warranty: Out of Warranty [facility] Service Plan: LOANER *ANNUAL FEE OF $100.00 TO USE, NEEDED* (Has Medicaid insurance now) Battery Size: 675 Earmold/Dome/CShell/SlimTip: Microsonic [id number] full shell Follow-Up Summary: Cary visited for an updated hearing test, retubing of her left aid, and to discuss her options for updated amplification on her left ear. She is interested in bimodal fitting with her cochlear implant but reports she has had trouble scheduling an appointment at [facility], as her is ill and she spends a lot of her time taking care of him, her father, and her grandchildren. She would [place] [facility] [place] and she has come here for many years. After contacting [employer], it was determined we can fit Cary with a compatible Resound hearing and adjust/service it, but at some point she will need to have the device paired with her implant by [facility]. She is eligible for a new hearing aid through [employer]. I emailed her to let her know we can order the aid and an earmold off scans on file if she would like to proceed with the new aid here, or if she chooses to be fit at [facility] she can return here for service on the aid. Will submit for medical clearance if she would like to proceed. Recommendations: Recommendations (Other): Will request medical clearance pending patient decision for new hearing aid. Diagnosis Code(s): Primary Diagnosis: H90.3 Bilateral Sensorineural Hearing Loss Signature: Provider: Shawnee Moya, [facility]
--- NOTE | 2023-03-01 10:21 | MHC.AU.MED ---
Medical Clearance for Hearing Instrumentation Date: 03/01/23 Patient Name: Cary Soler Date of : 1965 Primary Care Provider: Referring Provider: Davie Orozco PA-C We have seen your patient on 03/01/23 and have determined that they are a candidate for amplification (See accompanying report). Specifically, they would benefit from: Hearing aid use in the left ear There is a statute that addresses Medical Evaluation Requirements prior to fitting a patient with a hearing aid. According to [place] statute 265 CMR:6.03(1), (a) General. Except as provided in 265 CMR 6.03(1)(b), a plumbing service technician shall not sell a hearing aid unless the prospective user has presented to the plumbing service technician a written statement signed by a licensed physician that states that the patient's hearing loss has been medically evaluated and the patient may be considered a candidate for a hearing aid. The medical evaluation must have taken place within the preceding six months. Please note: Due to the [place] Statute referenced above, we cannot accept a signature other than that of a licensed physician. FSR and PA signatures cannot be accepted. I am in agreement with the above recommendation. There is no medical contraindication for hearing instrumentation. Physician Signature Date Physician Name (Printed)
--- NOTE | 2023-04-02 10:06 | MHC.AU.MED ---
Medical Clearance for Hearing Instrumentation Date: 04/02/23 Patient Name: Cary Soler Date of : 1965 Primary Care Provider: Referring Provider: Davie Orozco PA-C We have seen your patient on 04/02/23 and have determined that they are a candidate for amplification (See accompanying report). Specifically, they would benefit from: Hearing aid use in the left ear There is a statute that addresses Medical Evaluation Requirements prior to fitting a patient with a hearing aid. According to [place] statute 265 CMR:6.03(1), (a) General. Except as provided in 265 CMR 6.03(1)(b), a train starter shall not sell a hearing aid unless the prospective user has presented to the train starter a written statement signed by a licensed physician that states that the patient's hearing loss has been medically evaluated and the patient may be considered a candidate for a hearing aid. The medical evaluation must have taken place within the preceding six months. Please note: Due to the [place] Statute referenced above, we cannot accept a signature other than that of a licensed physician. ENCHILADA MAKER and PA signatures cannot be accepted. I am in agreement with the above recommendation. There is no medical contraindication for hearing instrumentation. Physician Signature Date Physician Name (Printed)
== END 2023-02-26 09:19 | disposition home or self-care (01) ==
LOC: HO.SH 09:18
PROVIDERS: Visit Provider Physician Assistant
DX: Z01.118 Encounter for examination of ears and hearing with other abnormal findings (principal); H90.3 Sensorineural hearing loss, bilateral
CPT/HCPCS: 92557; 92592; 99499

== ENCOUNTER 2023-03-04 09:08 | Outpatient (AMB) | payer MEDICARE, MEDICAID, SELFPAY ==
--- NOTE | 2023-03-04 09:09 | MHC.OFFVIS ---
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 No complaints. Last Pap/HPV was negative in 11/04 Last Mammogram was BI-RADS 1 in 03/09 Last Colonoscopy was in 11/04, the recommendation was to repeat in 5 years [facility] Medical History Allergic rhinitis Iliotibial band syndrome affecting left lower leg Greater trochanteric bursitis of left hip COPD (chronic obstructive pulmonary disease) Abnormal US (ultrasound) of abdomen Surgical History History of surgery on wrist Hx of neck surgery Hx of colonoscopy (10/24/19) History of cervical discectomy Family History (Updated 03/04/23 @ 09:16 by Cely Hernandez CMA) Father Diabetes mellitus Lyme disease Parkinson disease Mother Lung cancer Maternal Grandmother Breast cancer Other Hyperglycemia Leukemia Social History Housing: House Unable to assess alcohol history related to: Unable to respond Alcohol intake: never Patient Tobacco Use Status: Former Tobacco user Tobacco use type: Cigarette e-Cigarette/Vaping Use: Never Used Second Hand Smoke Exposure: No service: No Current occupational status: employed 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 Current occupational exposures/hazards: No Cognitive needs: No Hearing needs: No Vision needs: No Female Reproductive History Menstrual Age of Menarche: 10 Menopause type: natural Total pregnancies: 3 Full term: 2 Number of Living Children: 2 Ab induced: 1 Date of last pap smear: 11/07/19 Date of Mammogram: 03/09/22 Review of Systems Const All systems reviewed & are unremarkable except as noted in HPI and below Card Reports as per HPI Resp Reports as per HPI GI Reports as per HPI and Reports no additional complaints Reports as per HPI Physical Exam Vital Signs: BMI result Body Mass Index 26.5 Const General: cooperative, healthy appearing and comfortable Chest Chest palpation & inspection: normal inspection of the chest and normal palpation of entire chest wall Breast/axilla inspection: normal inspection of the breasts and normal inspection of the axillae Breast/axilla palpation: normal palpation of the breasts, normal palpation of the axillae and no axillary lymphadenopathy Resp Effort & Inspection: normal respiratory effort Auscultation: clear to auscultation bilaterally Percussion: percussion normal Cardio Palpation: normal PMI Rate: regular rate Rhythm: regular rhythm Heart sounds: no murmurs and no rubs Peripheral pulses: Peripheral pulses 2+ throughout GI Inspection: Yes normal to inspection Palpation (GI): Soft to palpation, nontender, no guarding, not rigid and No hepatosplenomegaly present Percussion: Yes normal to percussion Auscultation: normal bowel sounds Rectal Exam - Female: deferred General: Yes bladder normal to palpation External Female Exam: No lesion Speculum Exam - Vagina: normal appearance of the vagina, normal palpation, normal vaginal discharge and not erythematous Speculum Exam - Cervix: normal appearance of the cervix and normal palpation Bimanual exam- vagina & uterus: normal bimanual exam, normal palpation, uterine size normal, bladder normal to palpation, consistency normal and normal palpation Bimanual Exam- Adnexa, other: normal adnexae, no masses and no tenderness Assessment & Plan Assessment & Plan (1) Well woman exam: Code(s): Z01.419 - Encounter for gynecological examination (general) (routine) without abnormal findings Plan: Co testing not indicated this year. Counseled the patient about the recommended dietary allowance of 1200 mg of Calcium & 600 IU of vitamin D. Mammogram ordered. The patient was instructed to perform monthly self-breast exams and schedule annual exam in a year. All questions answered and the patient verbalized understanding. Orders: Orders MM tomosynthesis screening BI Today Z12.31 - Encounter for screening mammogram for malignant neoplasm of breast Coding Level of Care Code Est Pt Prev Care 40-64y(39697) Diagnoses Well woman exam Z01.419
[2023-03-04 09:10] VITALS: BP 118/76; BMI 26.5
== END 2023-03-04 09:29 | disposition home or self-care (01) ==
LOC: HO.HWS 09:08
PROVIDERS: Visit Provider Obstetrics & Gynecology
DX: Z01.419 Encounter for gynecological examination (general) (routine) without abnormal findings (principal)
CPT/HCPCS: G0101

== ENCOUNTER → 2023-03-04 09:08 | Outpatient (BNVA) | payer MEDICARE, MEDICAID, SELFPAY | PROVIDERS: Visit Provider Obstetrics & Gynecology | DX: Z01.419 Encounter for gynecological examination (general) (routine) without abnormal findings (principal) | CPT/HCPCS: G0101 ==

== ENCOUNTER 2023-04-21 09:01 | Outpatient (REF) | payer MEDICARE, MEDICAID, SELFPAY | END 2023-04-21 09:02 | disposition home or self-care (01) | LOC: HO.MAMMO 09:01 | PROVIDERS: PCP Physician Assistant; Visit Provider Physician Assistant | DX: Z12.31 Encounter for screening mammogram for malignant neoplasm of breast (principal) | CPT/HCPCS: 77063; 77067 ==

== ENCOUNTER → 2023-04-21 09:15 | Outpatient (BNV) | payer MEDICARE, MEDICAID, SELFPAY | PROVIDERS: PCP Physician Assistant; Visit Provider Radiology Diagnostic Radiology | DX: Z12.31 Encounter for screening mammogram for malignant neoplasm of breast (principal) | CPT/HCPCS: 77063; 77067 ==

== ENCOUNTER 2023-04-24 09:54 | Outpatient (AMB) | payer MEDICARE, MEDICAID, SELFPAY ==
[2023-04-24 11:22] VITALS: BP 126/76; PULSE 66; O2SAT 98; BMI 24.5
--- NOTE | 2023-04-24 11:22 | MHC.OFFWIV ---
Intake Vital Signs 04/24/23 11:22 Height 5 ft 8 in Weight 161 lb 6 oz BMI 24.5 BP 126/76 Blood Pressure Location Lt brachial Position Sitting Pulse 66 Pulse Source Pulse Oximeter Pulse Oximetry (%) 98 Oxygen Delivery Method Room Air Intake Visit Reasons: EP tick bite on RT eyebrow Intake Note: Patient is here with tick bite on right eyebrow. Patient Tobacco Use Status: Former Tobacco user Allergies No Known Allergies [No Known Allergies*] Allergy (Verified 04/24/23 11:54) Medication List - Last Reconciled 04/24/23 by Laury Skinner CNP albuterol sulfate 90 mcg/actuation 1 inh inhalation QID PRN 30 days blood pressure test kit-large As directed lisinopril-hydrochlorothiazide 20-12.5 mg 1 tab PO DAILY 90 days meloxicam 15 mg PO DAILY 30 days omeprazole 20 mg PO DAILY Do you need a note to return to daycare/school/sports/work: No HPI HPI Comments History of Present Illness Details 57-year-old female presents to walk-in clinic today due to a recent tick bite. Patient reports waking up morning when she noticed a tick on her right upper eye just at eye brow line, she was able to remove the whole tick, but on Wednesday she noticed the bite souleymane was getting bigger so she wanted to have it looked at. She denies fever, chills, general body aches, headache, fatigue, CP, SOB, palpitations, dizziness, abdominal pain, nausea, vomiting, changes in bowels or bladder. [facility] Medical History Allergic rhinitis Iliotibial band syndrome affecting left lower leg Greater trochanteric bursitis of left hip COPD (chronic obstructive pulmonary disease) Abnormal US (ultrasound) of abdomen Surgical History History of surgery on wrist Hx of neck surgery Hx of colonoscopy (10/24/19) History of cervical discectomy Family History (Updated 03/04/23 @ 09:16 by Cely Hernandez CMA) Father Diabetes mellitus Lyme disease Parkinson disease Mother Lung cancer Maternal Grandmother Breast cancer Other Hyperglycemia Leukemia Social History Housing: House Unable to assess alcohol history related to: Unable to respond Alcohol intake: never Patient Tobacco Use Status: Former Tobacco user Tobacco use type: Cigarette e-Cigarette/Vaping Use: Never Used Second Hand Smoke Exposure: No service: No Current occupational status: employed 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 Current occupational exposures/hazards: No Cognitive needs: No Hearing needs: No Vision needs: No Female Reproductive History Menstrual Age of Menarche: 10 Review of Systems Const All systems reviewed & are unremarkable except as noted in HPI and below Physical Exam Vital Signs: Last Vital Signs Pulse 66 04/24/23 11:22 BP 126/76 04/24/23 11:22 Pulse Ox 98 04/24/23 11:22 Oxygen Delivery Method Room Air 04/24/23 11:22 BMI result Body Mass Index 24.5 Const General: healthy appearing and no acute distress Nutritional Appearance: average body habitus Orientation/consciousness: patient oriented x3 Limitations: no limitations HEENT Head: Yes normal to inspection, Yes normocephalic and Yes atraumatic Ears: hearing grossly normal bilaterally General nose exam: Normal nasal mucous membranes and turbinates present Face and sinus: Yes sinuses nontender Mouth: moist mucous membranes Throat: Yes posterior oropharynx normal Eyes Periorbital: periorbital findings normal Eyelids: Yes other (erythema bullseye above right eyebrow) Conjunctivae: conjunctivae normal Sclerae: sclerae normal EOM: EOMs intact bilaterally Neck Neck: Yes normal visual inspection, Yes no lymphadenopathy, Yes no meningeal signs, Yes trachea midline and Yes supple Chest Chest palpation & inspection: normal inspection of the chest Resp Effort & Inspection: normal respiratory effort, no cough, no respiratory distress and not tachypneic Auscultation: clear to auscultation bilaterally Cardio Rate: regular rate Rhythm: regular rhythm Heart sounds: S1 normal heart sound present and S2 normal heart sound present Peripheral pulses: Peripheral pulses 2+ throughout GI Inspection: Yes normal to inspection Palpation (GI): Soft to palpation and nontender Auscultation: normal bowel sounds Skin General skin exam: elasticity normal and turgor normal Neuro General: patient oriented x3, gait normal, moves all extremities and no meningeal signs Extrem General: Yes normal to inspection, Yes full ROM, Yes capillary refill normal and Yes no clubbing, cyanosis or edema Psych Appearance: well kempt Mental Status: mental status grossly normal Speech and movement: Normal speech and movement present Affect: normal affect Attitude: cooperative Assessment & Plan Assessment & Plan (1) Tick bite of eyelid: Code(s): S00.269A - Insect bite (nonvenomous) of unspecified eyelid and periocular area, initial encounter; W57.XXXA - Bitten or stung by nonvenomous insect and other nonvenomous arthropods, initial encounter Qualifiers: Encounter type: initial encounter Laterality: right Qualified Code(s): S00.261A - Insect bite (nonvenomous) of right eyelid and periocular area, initial encounter; W57.XXXA - Bitten or stung by nonvenomous insect and other nonvenomous arthropods, initial encounter Plan: 57-year-old female seen today in office for a recent tick bite to right upper eyebrow. She was able to remove the entire tick. Physical exam reveals small erythema bulls eye rash above the right upper eyebrow. Treated with doxycycline Prophylaxis 100 mg po bid x 5 days, encouraged to take with food, or milk to reduce GI upset. Encouraged to return to office or follow up with PCP for worsening or unresolved symptoms. Medications: New doxycycline monohydrate 100 mg PO BID 10 caps 0RF 5 days S00.269A - Insect bite (nonvenomous) of unspecified eyelid and periocular area, initial encounter, W57.XXXA - Bitten or stung by nonvenomous insect and other nonvenomous arthropods, initial encounter Coding Level of Care Code Est Pt Level 3 (99982) Diagnoses Tick bite of right eyelid, initial encounter S00.261A; W57.XXXA Encounter type: initial encounter Laterality: right
== END 2023-04-24 12:04 | disposition home or self-care (01) ==
PROVIDERS: PCP Physician Assistant; Visit Provider Nurse Practitioner Acute Care
DX: S00.261A Insect bite (nonvenomous) of right eyelid and periocular area, initial encounter (principal); W57.XXXA Bitten or stung by nonvenomous insect and other nonvenomous arthropods, initial encounter
CPT/HCPCS: 99213

== ENCOUNTER 2023-05-20 12:59 | Outpatient (REF) | payer MEDICARE, MEDICAID, SELFPAY | END 2023-05-20 13:00 | disposition home or self-care (01) | LOC: HO.HAP 12:59 | PROVIDERS: PCP Physician Assistant; Visit Provider Physician Assistant | DX: Z46.1 Encounter for fitting and adjustment of hearing aid (principal); H90.3 Sensorineural hearing loss, bilateral | CPT/HCPCS: V5011; V5020; V5241; V5257; V5264 ==

== ENCOUNTER 2023-06-16 11:26 | Outpatient (REF) | payer MEDICARE, MEDICAID, SELFPAY | END 2023-06-16 11:27 | disposition home or self-care (01) | LOC: HO.HAP 11:26 | PROVIDERS: Visit Provider Physician Assistant | DX: Z13.89 Encounter for screening for other disorder (principal) ==

== ENCOUNTER 2023-06-30 11:28 | Outpatient (REF) | payer MEDICARE, MEDICAID, SELFPAY | END 2023-06-30 11:29 | disposition home or self-care (01) | LOC: HO.HAP 11:28 | PROVIDERS: Visit Provider Physician Assistant | DX: Z13.89 Encounter for screening for other disorder (principal) ==

== ENCOUNTER 2023-07-10 12:04 | Emergency (ER) | payer MEDICARE, MEDICAID, SELFPAY ==
--- NOTE | ~2023-07-10 | XR_ITS ---
EXAMINATION: XR SHOULDER , humerus right CLINICAL INFORMATION: Pain COMPARISON: None available at the time of this dictation. TECHNIQUE: AP external rotation, Grashey, scapular Y, and axillary views of the shoulder. Total of 6views FINDINGS: BONES: There is no fracture or dislocation, no osteolytic or osteoblastic lesion. JOINTS: Glenohumeral joint is properly positioned. There is mild degenerative osteoarthritis of the acromioclavicular joint. SOFT TISSUE AND INCLUDED LUNG: Normal. XR/XR shoulder RT min 2V IMPRESSION: Except for mild DJD of the AC joint, exam is normal.
--- NOTE | ~2023-07-10 | XR_ITS ---
EXAMINATION: XR ELBOW, RIGHT CLINICAL INFORMATION: Pain COMPARISON: None available. TECHNIQUE: AP, lateral, and oblique views of the right elbow. FINDINGS: The bones and soft tissues are normal. No fracture or joint effusion. Alignment is anatomic. Joint spaces are maintained. XR/XR elbow RT 2V IMPRESSION: No fracture or dislocation.
--- NOTE | ~2023-07-10 | XR_ITS ---
EXAMINATION: XR SHOULDER , humerus right CLINICAL INFORMATION: Pain COMPARISON: None available at the time of this dictation. TECHNIQUE: AP external rotation, Grashey, scapular Y, and axillary views of the shoulder. Total of 6views FINDINGS: BONES: There is no fracture or dislocation, no osteolytic or osteoblastic lesion. JOINTS: Glenohumeral joint is properly positioned. There is mild degenerative osteoarthritis of the acromioclavicular joint. SOFT TISSUE AND INCLUDED LUNG: Normal. XR/XR humerus RT IMPRESSION: Except for mild DJD of the AC joint, exam is normal.
--- NOTE | ~2023-07-10 | US_ITS ---
EXAMINATION: US EXTREMITY, NONVASCULAR CLINICAL INFORMATION: Right bicep tendon pain COMPARISON: None available. TECHNIQUE: Focused ultrasound examination of the right upper arm, in the region of pain. FINDINGS: No abnormal mass or fluid collection identified in the area of reported pain. No evidence of DVT. US/US extremity nonvascular IMPRESSION: Unremarkable examination.
[2023-07-10 12:33] VITALS: BP 136/73; PULSE 69; RESP 18; TEMP 36.6; O2SAT 94; BMI 31.2
--- NOTE | 2023-07-10 12:35 | ED_ITS ---
HPI - Extremity Problem General Chief complaint: Extremity Injury, Upper Stated complaint: Arm injury Time Seen by Provider: 07/10/23 16:15 Source: patient and RN notes reviewed Mode of arrival: ambulatory Limitations: no limitations History of Present Illness ED Provider: Ana Briscoe PA-C HPI Narrative: This is a 71-qdiz-sot-female, with a hx of arthritis, who presents emergency department with complaints of severe right-sided arm pain after lifting a heavy bag. She felt a large snap in her right arm. She states that she is having difficulty lifting her right arm secondary to weakness and pain. No hx of similar symptoms in the past, no problems with right arm in the past. No numbness or tingling. No fevers or chills. No other complaints or concerns at this time. MD Complaint: extremity pain Onset (ago): hour(s) Pain Consistency: constant Location: right and upper extremity Quality: aching Radiation: proximal Relieving factors: immobilization Exacerbating factors: range of motion Associated symptoms: denies other symptoms Related Data Previous Rx's ?Medication ?Instructions ?Recorded blood pressure test kit-large #1 ea 01/27/21 albuterol sulfate 90 mcg/actuation 1 inh inhalation QID PRN shortness 07/23/22 aerosol inhaler of breath or wheezing 30 days #8.5 grams lisinopril 20 1 tab PO DAILY 90 days #90 tabs 01/13/23 mg-hydrochlorothiazide 12.5 mg tablet omeprazole 20 mg capsule,delayed 20 mg PO DAILY #14 caps 02/17/23 release doxycycline monohydrate 100 mg 100 mg PO BID 5 days #10 caps 04/24/23 capsule meloxicam 15 mg tablet 15 mg PO DAILY 30 days #30 tabs 06/04/23 acetaminophen 500 mg tablet 500 mg PO Q6H PRN pain #30 tabs 07/10/23 (Tylenol Extra Strength) ibuprofen 600 mg tablet 600 mg PO Q6H PRN pain #30 tabs 07/10/23 Allergies Allergy/AdvReac Type Severity Reaction Status Date / Time No Known Allergies Allergy Verified 07/10/23 12:35 [No Known Allergies*] Review of Systems Review of Systems: Yes all other systems are reviewed and are negative PMFSH Past Medical History Medical History Allergic rhinitis Iliotibial band syndrome affecting left lower leg Greater trochanteric bursitis of left hip COPD (chronic obstructive pulmonary disease) Abnormal US (ultrasound) of abdomen Surgical History History of surgery on wrist Hx of neck surgery Hx of colonoscopy (10/24/19) History of cervical discectomy Family History Family History (Updated 03/04/23 @ 09:16 by Cely Hernandez CMA) Father Diabetes mellitus Lyme disease Parkinson disease Mother Lung cancer Maternal Grandmother Breast cancer Other Hyperglycemia Leukemia Social History Social History Housing: House Unable to assess alcohol history related to: Unable to respond Alcohol intake: never Patient Tobacco Use Status: Former Tobacco user Tobacco use type: Cigarette e-Cigarette/Vaping Use: Never Used Second Hand Smoke Exposure: No Advance Directives: No Advance Directives Information Provided: No service: No Current occupational status: employed 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 able to flex and extend at the elbow without difficulty. Unable to perform shoulder flexion and abduction due to pain and weakness. Hook test intact. No obvious bicep deformity but TTP throughout the bicep and distal bicep insertion site. Course Course Course Narrative: This is an RME: Additional HPI, ROS, PE not included below will be deferred to primary provider. RME assessment and note performed by: Ana Briscoe PA-C This is a 79-vcxu-eko-female, with a hx of arthritis, who presents emergency department with complaints of severe right-sided arm pain after lifting a heavy bag. She felt a large snap in her right arm. Patient with tenderness palpation along the right biceps, with ?deformity, also having some tenderness along the humerus, right shoulder and right elbow. Plan: Labs, ultrasound Medical Decision Making Medical Decision Making MDM Narrative: This is a 57 year old female presenting to the ER with complaints of right arm pain s/p lifting heavy bag. [place] popping sensation in right upper arm. PE concerning for biceps tendon injury, however able to flex and extend at elbow, difficulty with raising arm. Xrays ordered with no acute bony abnormality, US performed with no tendon injury seen. Discussed findings with patient, placed in sling. Discussed with orthopedic PACornelius, who reccomends to call wednesday, no urgent intervention indicated. Given return precautions. Pt stable for d/c. Differential Diagnosis Differential Diagnoses: The differential diagnosis associated with the presentation includes bicep tendon tear, strain, sprain, fracture, dislocation Radiology Impression Discussion of test interpretation with radiology: I have reviewed the radiologist's reading. Radiologist Impression: XR/XR shoulder RT min 2V IMPRESSION: Except for mild DJD of the AC joint, exam is normal. Dictated By: Jt Waller MD US/US extremity nonvascular IMPRESSION: Unremarkable examination. Dictated By: Boubacar Acosta MD Signed By: <Electronically signed Discharge Plan Discharge Clinical Impression: Muscle strain of right upper arm Patient Disposition: Home, Self-Care Instructions: Muscle Strain (ED), How to Use a Sling (ED), Cold Compress or Soak (ED), Shoulder Immobilizer (ED) Additional Instructions: You were seen in the emergency department due to right arm pain. Your x-rays do not show any broken bones. Your ultrasound does not show any abnormalities. Please take ibuprofen and/or Tylenol as needed for pain. Do not stay in sling 247, gentle range of motion is important. Gentle range of motion of your shoulder and your elbow. Follow-up Orthopedics, call on Wednesday to make an appointment. If any new or worsening symptoms occur including but not limited to chest pain, shortness of breath, worsening pain, please return for re-evaluation. Prescriptions: New ibuprofen 600 mg tablet 600 mg PO Q6H PRN (Reason: pain) Qty: 30 0RF acetaminophen [Tylenol Extra Strength] 500 mg tablet 500 mg PO Q6H PRN (Reason: pain) Qty: 30 0RF No Action lisinopril-hydrochlorothiazide 20-12.5 mg tablet 1 tab PO DAILY 90 Days Qty: 90 1RF meloxicam 15 mg tablet 15 mg PO DAILY 30 Days Qty: 30 3RF omeprazole 20 mg capsule,delayed release(DR/EC) 20 mg PO DAILY Qty: 14 0RF (DME) blood pressure test kit-large Kit See Rx Instructions .Route Qty: 1 0RF Rx Instructions: As directed albuterol sulfate 90 mcg/actuation HFA aerosol inhaler 1 inh inhalation QID PRN (Reason: shortness of breath or wheezing) 30 Days Qty: 8.5 2RF doxycycline monohydrate 100 mg capsule 100 mg PO BID 5 Days Qty: 10 0RF Referrals: [facility] [Provider Group] Interventions: ED Discharge Assessment Last Done: 07/10/23 16:32 Discharge Date/Time: 07/10/23 16:33 Print Language: Congolese
[2023-07-10 16:32] VITALS: BP 136/73; PULSE 69; RESP 19; TEMP 36.6; O2SAT 99
== END 2023-07-10 16:33 | disposition home or self-care (01) ==
PROVIDERS: Emergency Provider Internal Medicine; PCP Physician Assistant
DX: S46.911A Strain of unspecified muscle, fascia and tendon at shoulder and upper arm level, right arm, initial encounter (principal); X50.0XXA Overexertion from strenuous movement or load, initial encounter; Y93.9 Activity, unspecified; Y92.9 Unspecified place or not applicable; Y99.9 Unspecified external cause status
CPT/HCPCS: 73030; 73060; 73070; 76882; 99283; 99284

== ENCOUNTER 2023-07-22 08:35 | Outpatient (REF) | payer MEDICARE, MEDICAID, SELFPAY ==
[2023-07-22 09:44] LABS: Hematocrit 37.2 % (37.0-47.0); Mean Corpuscular HGB Conc 32.3 g/dl (31.0-35.0); Mean Corpuscular Hemoglobin 29.2 pg (27.0-33.0); Mean Corpuscular Volume 90.5 fL (80.0-98.0); Mean Platelet Volume 9.8 fL (9.4-12.3); Platelet Count 244 X10*3/uL (160-400); Red Blood Count 4.11 X10*6/uL (4.20-5.50); Red Cell Distribution Width 12.7 % (11.0-16.0); White Blood Count 7.3 X10*3/uL (4.8-10.8)
[2023-07-22 09:49] LABS: Estimated Average Glucose 123 mg/dL; Hemoglobin A1c % 5.9 % (<6.0)
[2023-07-22 10:18] LABS: Creatinine Urine 146.79 mg/dL; Microalbum/Creatinine Ratio Ur 5.4 ug/mg cr (<30)
[2023-07-22 10:20] LABS: Alanine Aminotransferase 14 U/L (0-31); Albumin Level 4.2 g/dL (3.5-5.0); Alkaline Phosphatase 90 U/L (39-117); Anion Gap 11 (12-20); Aspartate Amino Transferase 17 U/L (5-31); Bilirubin Total 0.5 mg/dL (0.0-1.0); Blood Urea Nitrogen 21 mg/dL (9-16); Calcium 9.7 mg/dL (8.4-10.2); Carbon Dioxide 29 mmol/L (22-29); Chloride 107 mmol/L (96-108); Estimated Glomerular Filt Rate > 60; Glucose Fasting 103 mg/dL (60-99); Potassium 3.8 mmol/L (3.3-5.1); Sodium 143 mmol/L (135-145); Total Protein 6.9 g/dL (6.5-8.0)
== END 2023-07-22 08:36 | disposition home or self-care (01) ==
LOC: HO.LAB 08:35
PROVIDERS: PCP Physician Assistant; Visit Provider Physician Assistant
DX: I10 Essential (primary) hypertension (principal); R73.09 Other abnormal glucose
CPT/HCPCS: 36415; 80053; 82043; 82570; 83036; 85027

== ENCOUNTER 2023-07-27 09:16 | Outpatient (AMB) | payer MEDICARE, MEDICAID, SELFPAY ==
--- NOTE | 2023-07-27 09:21 | MHC.PC.OV ---
Vital Signs 07/27/23 09:25 07/27/23 09:52 Height 5 ft Weight 160 lb 4 oz BMI 31.3 BP 162/92 H 160/70 H Blood Pressure Location Lt brachial Position Sitting Pulse 62 Pulse Source Pulse Oximeter Pulse Oximetry (%) 97 Oxygen Delivery Method Room Air Intake Visit Reasons: f/u HTN/ IGM Apartment Rental Agent Required: No Accompanied by: Self / Same As Patient Allergies No Known Allergies [No Known Allergies*] Allergy (Verified 07/27/23 09:29) Medication List - Last Reconciled 07/27/23 by Davie Orozco PA-C acetaminophen (Tylenol Extra Strength) 500 mg PO Q6H PRN albuterol sulfate 90 mcg/actuation 1 inh inhalation QID PRN 30 days blood pressure test kit-large As directed lisinopril-hydrochlorothiazide 20-12.5 mg 1 tab PO DAILY 90 days meloxicam 15 mg PO DAILY 30 days omeprazole 20 mg PO DAILY Tobacco use date assessed: 07/27/23 Dental Screening Dental Screen Date: 07/27/23 Did you have a dental visit in the last 12 months?: Yes Did you have a dental problem in the last 6 months where you did not have access to dental care?: No Was dental information given to patient?: Patient has dentist HPI f/u HTN/ IGM HPI Details Patient is a 57 year-old female here today for a follow-up visit. Patient has a past medical history significant for obesity, sensorineural hearing loss? ( has choclear inplant) , hypertension., Concerns--> reports recently having bright red per rectum chinyere last 2 days. has been having increased stress in her life due to family issues . She does report feeling somewhat tired and attributes to her busy lifestyle. .. Impiared glucose metabolism: Most recent fasting blood sugar has improved, A1c now at 5.9 from 6.0. She has been working on lifestyle changes to reduce her sugar and carbohydrates in her diet. .. Arthritis: Has started on meloxicam which has been very beneficial to patient. She reports a lot of pain relief when using meloxicam. She is somewhat concerned about long-term side effects I will try to use on a p.r.n. basis. Did discuss the possibility of trying topical NSAID on a p.r.n. basis as well. .. COPD : Has been having SOB on exertion and chest tightness.? She does use her albuterol inhaler though does not feel it is helpful.? Denies any smoking. .. HTN: . Blood pressure today in office elevated. She does report being somewhat stressed due to personal issues at home. has multiple medical issues and substance abuse issue. Will continue her current dose of lisinopril hydrochlorothiazide . Laboratory Tests 04/22/20 09/01/22 07/22/23 17:06 09:22 08:58 RBC 4.31 Hgb Creatinine 0.71 Fasting Glucose 114 H Hemoglobin A1c % 6.0 Cholesterol 161 TSH 0.92 Urine Microalbumin 8.0 07/22/23 08:59 RBC 4.11 L Hgb 12.0 Creatinine 0.69 Fasting Glucose 103 H Hemoglobin A1c % 5.9 Cholesterol TSH Urine Microalbumin [facility] Medical History Allergic rhinitis Iliotibial band syndrome affecting left lower leg Greater trochanteric bursitis of left hip COPD (chronic obstructive pulmonary disease) Abnormal US (ultrasound) of abdomen Surgical History History of surgery on wrist Hx of neck surgery Hx of colonoscopy (10/24/19) History of cervical discectomy Family History Father Diabetes mellitus Lyme disease Parkinson disease Mother Lung cancer Maternal Grandmother Breast cancer Other Hyperglycemia Leukemia Social History Housing: House Unable to assess alcohol history related to: Unable to respond Alcohol intake: never Patient Tobacco Use Status: Former Tobacco user Tobacco use type: Cigarette e-Cigarette/Vaping Use: Never Used Second Hand Smoke Exposure: No service: No Current occupational status: employed 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 1. Little interest or pleasure in doing things: not at all 2. Feeling down, depressed, or hopeless: not at all 3. Trouble falling or staying asleep, or sleeping too much: not at all 4. Feeling tired or having little energy: not at all 5. Poor appetite or overeating: not at all 6. Feeling bad about yourself - or that you are a failure or have let yourself or your family down: not at all 7. Trouble concentrating on things, such as reading the newspaper or watching television: not at all 8. Moving or speaking so slowly that other people could have noticed. Or the opposite - being so fidgety or restless that you have been moving around a lot more than usual: not at all 9. Thoughts that you would be better off or of hurting yourself in some way: not at all Total score: 0 Depression Screening Interpretation: Negative Depression Screening Done: Yes 19029 - PHQ-9 Billing: Yes Source: Developed by Drs. Dave Mercado, Aleta Bal, Will Lopez and colleagues, with an educational kamar from [employer]. Thrive Questionnaire Date Thrive assessed: 07/27/23 I am a: Patient What is your living situation today?: I have a steady place to live Within the past 12 months, did the food you bought not last and you didn't have the money to get more?: Never true Within the past 12 months, did you worry whether your food would run out before you got money to buy more?: Never true Do you have trouble paying for medicines?: No Do you have trouble getting transportation to medical appointments?: No Do you have trouble paying your heating and electricity bill?: No Do you have trouble taking care of your child, family member or friend?: No Do you have trouble with day-to-day activities such as bathing, preparing meals, shopping, managing finances, etc.?: No Are you currently unemployed and looking for a job?: No Are you interested in more education?: No Please select the resources that you would like help with: None Currently or been in a relationship where the following occur: no concerns reported THRIVE Score: 0 AUDIT C Alcohol Use Questionnaire (AUDIT-C) 1. How often do you have a drink containing alcohol?: Never 3. How often do you have six or more drinks on one occasion?: Never Total Score: 0 SUSAN-7 AMB Questionnaire SUSAN-7 Date SUSAN - 7 assessed: 07/27/23 Feeling nervous, anxious, or on edge: 0 = Not at all Not being able to stop or control worryin = Not at all Worrying too much about different things: 0 = Not at all Trouble relaxin = Not at all Being so restless that it is hard to sit still: 0 = Not at all Becoming easily annoyed or irritable: 0 = Not at all Feeling afraid as if something awful might happen: 0 = Not at all Total SUSAN-7 score (0-4 normal; 5-9 mild; 10-14 moderate; 15-21 severe): 0 Source: Developed by Drs. Dave Mercado, Aleta Bal, Will Lopez and colleagues, with an educational kamar from [employer]. SUSAN-7 Assessment Billing SUSAN-7 Assessment Tool: SUSAN-7 Assessment 32384 Review of Systems Const Denies headache(s) Eyes Denies loss of vision ENT Denies vertigo, Denies dizziness, Denies headache(s) and Denies sore throat Card Denies chest pain, Denies leg edema and Denies lightheadedness Resp Denies cough, Denies hemoptysis and Denies wheezing GI Denies abdominal pain, Denies melena, Denies constipation, Denies diarrhea and Denies vomiting Denies urinary frequency, Denies dysuria and Denies urinary urgency Musc Denies arthralgias, Denies joint swelling, Denies numbness and Denies tingling Neuro Denies Abnormal speech present, Denies behavioral changes, Denies vertigo, Denies dizziness, Denies headache(s), Denies loss of vision, Denies memory loss, Denies numbness and Denies tingling Psych Denies anxiety, Denies behavioral changes, Denies depression, Denies memory loss and Denies panic attacks Jorge/Lymph Denies easy bleeding and Denies easy bruising Aller/Immun Denies wheezing Physical exam (Primary Care) Vital Signs: Last Vital Signs Pulse 62 07/27/23 09:25 BP 162/92 H 07/27/23 09:25 Pulse Ox 97 07/27/23 09:25 Oxygen Delivery Method Room Air 07/27/23 09:25 BMI result Body Mass Index 31.3 Tobacco/Smoking Status: Tobacco use Status Tobacco use date assessed 01/25/23 07/27/23 09:24 Patient Tobacco Use Status Former Tobacco user 07/27/23 09:24 Tobacco use type Cigarette 07/27/23 09:24 e-Cigarette/Vaping Use Never Used 07/27/23 09:24 Depression Screening Interpretation: Negative Thrive Assessment: Date of Thrive Assessment Date Thrive assessed 09/02/22 07/27/23 09:24 Currently or been in a relationship where the following occur: no concerns reported Const General: healthy appearing, no acute distress, alert and awake Nutritional Appearance: well nourished Orientation/consciousness: oriented to person, oriented to place and oriented to time HENMT Ears: TM's normal bilaterally General nose exam: Normal nasal mucous membranes and turbinates present Eyes Conjunctivae: conjunctivae normal Sclerae: sclerae normal Pupils: Equal, round and reactive pupils present Neck Neck: Yes no lymphadenopathy and Yes no JVD Thyroid: Thyroid normal Carotids: no bruits Resp Effort & Inspection: normal respiratory effort and not tachypneic Auscultation: no crackles, no rales, no rhonchi and no wheezes Cardio Rate: regular rate Rhythm: regular rhythm Heart sounds: no murmurs and normal S1 and S2 GI Palpation (GI): Soft to palpation, nontender, no hepatomegaly and no splenomegaly Auscultation: normal bowel sounds Skin General skin exam: no rashes or lesions noted and dry skin Neuro General: oriented to person, oriented to place and oriented to time Cranial nerves: Yes Equal, round and reactive pupils present Speech: No Abnormal speech present Gait exam (Neuro): Normal gait present Motor exam (neuro): no tremor noted Extrem Right upper extremity: full ROM Left upper extremity: full ROM Right lower extremity: full ROM; no edema Left lower extremity: full ROM; no edema Psych Mental Status: mental status grossly normal Speech and movement: Normal speech and movement present Affect: normal affect Attitude: cooperative Thought process: Normal thought process present Assessment and Plan Assessment & Plan (1) HTN (hypertension): Code(s): I10 - Essential (primary) hypertension Qualifiers: Hypertension type: essential hypertension Qualified Code(s): I10 - Essential (primary) hypertension Plan: Patient's blood pressure elevated today in office. She reports that home blood pressures are usually pretty stable She does report having a lot more stress in her life due to her 's medical issues and substance use disorder.. She denies any chest discomfort, headaches or vision issues. Goal blood pressure be below 140/90 (2) COPD (chronic obstructive pulmonary disease): Code(s): J44.9 - Chronic obstructive pulmonary disease, unspecified Qualifiers: COPD type: chronic bronchitis Chronic bronchitis type: unspecified Qualified Code(s): J42 - Unspecified chronic bronchitis Plan: Patient continues to have shortness of breath on exertion though at rest reports she is fine. She does have albuterol available to her to use on a p.r.n. basis. (3) Impaired glucose metabolism: Code(s): R73.09 - Other abnormal glucose Plan: Patient's most recent fasting blood sugar showing much improvement, A1c now at 5.9.. She will continue on low carbohydrate diet and trying to be more physically active. Will continue to follow fasting blood sugar and check an A1c. (4) Cochlear implant in place: Code(s): Z96.21 - Cochlear implant status Plan: Followed by ENT specialist, has a cochlear implant on right-sided. Has hearing aid on left side. (5) BPPV (benign paroxysmal positional vertigo): Code(s): H81.10 - Benign paroxysmal vertigo, unspecified ear Qualifiers: Laterality: left Qualified Code(s): H81.12 - Benign paroxysmal vertigo, left ear Plan: She does report having intermittent episodes of feeling off balance. She does have cochlear implants and on physical exam today does seem to have some fluid in left ear. Advised on antihistamine therapy and trying Franc maneuvers at home has a vestibular therapy. (6) Internal bleeding hemorrhoids: Code(s): K64.8 - Other hemorrhoids Plan: Reports a recent history of bright red blood per rectum. Of note colonoscopy in 2019 showing 1+ internal hemorrhoid. Advised on increasing fluids and fiber in her diet. Orders: Orders Complete Blood Count no Diff Today I10 - Essential (primary) hypertension Comprehensive [place]. Panel Fast Today I10 - Essential (primary) hypertension Hemoglobin A1c Today R73.09 - Other abnormal glucose Lipid Panel Today I10 - Essential (primary) hypertension Patient Instructions: Goal: Monitor blood pressure at home with goal blood pressure to be below 140/90 Barriers: Adherence to physical activity and healthy eating habits. Coding Level of Care Code Est Pt Level 4 (64663) Complex EM visit Add On G2211 Diagnoses Essential hypertension I10 Hypertension type: essential hypertension Chronic bronchitis, unspecified chronic bronchitis type J42 COPD type: chronic bronchitis Chronic bronchitis type: unspecified Impaired glucose metabolism R73.[address] Z96.21 Benign paroxysmal positional vertigo of left ear H81.12 Laterality: left Internal bleeding hemorrhoids K64.8 Additional Codes SUSAN-7 Assessment Billing - SUSAN-7 Assessment Tool: SUSAN-7 Assessment 19664 ([id number])
[2023-07-27 09:25] VITALS: BP 162/92; PULSE 62; O2SAT 97; BMI 31.3
[2023-07-27 09:52] VITALS: BP 160/70
== END 2023-07-27 09:55 | disposition home or self-care (01) ==
PROVIDERS: PCP Physician Assistant; Visit Provider Physician Assistant
DX: I10 Essential (primary) hypertension (principal); J42 Unspecified chronic bronchitis; R73.09 Other abnormal glucose; Z96.21 Cochlear implant status; H81.12 Benign paroxysmal vertigo, left ear; K64.8 Other hemorrhoids
CPT/HCPCS: 99214; G2211

== ENCOUNTER 2023-12-31 10:28 | Outpatient (REF) | payer MEDICARE, MEDICAID, SELFPAY ==
--- NOTE | 2023-12-31 13:52 | MHC.AU.HA3 ---
Hearing Instrument Follow-Up- Binaural Date of Visit: 12/31/23 Right Ear: Make, Model, Color, Serial Number: Cochlear Implant Left Ear: Make, Model, Color, Serial Number: [id number] SN: [id number] Color: Garcia Henry Customer Strategy Manager Repair Warranty: 04/19/2026 Customer Strategy Manager Loss and Damage Warranty: 04/19/2026 [facility] Service Plan: 05/19/2024 Battery Size: 675 Earmold/Dome/CShell/SlimTip: Microsonic [id number] full shell Dispensed By: [facility] Date of Fittin05/20/2023 Follow-Up Summary: Here for tubing change, reports tube has become hard, getting feedback. Cleaned and checked aid, cleaned earmold. Mold split upon removal of tube. Replaced tubing. Listening check positive. Ordering duplicate earmold to replace this one, which is functional for the interim. Recommendations: Recommendations: Patient will be contacted when materials have arrived. Diagnosis Code(s): Primary Diagnosis: H90.3 Bilateral Sensorineural Hearing Loss Signature: Provider: Kareem Dahl, [facility]
== END 2023-12-31 10:29 | disposition home or self-care (01) ==
LOC: HO.HAP 10:28
PROVIDERS: Visit Provider Physician Assistant
DX: Z13.89 Encounter for screening for other disorder (principal)

== ENCOUNTER 2024-01-25 08:31 | Outpatient (REF) | payer MEDICARE, MEDICAID, SELFPAY ==
[2024-01-25 09:13] LABS: Hematocrit 37.8 % (37.0-47.0); Hemoglobin 12.4 g/dl (12.0-16.0); Mean Corpuscular HGB Conc 32.8 g/dl (31.0-35.0); Mean Corpuscular Hemoglobin 28.7 pg (27.0-33.0); Mean Corpuscular Volume 87.5 fL (80.0-98.0); Mean Platelet Volume 9.4 fL (9.4-12.3); Platelet Count 245 X10*3/uL (160-400); Red Blood Count 4.32 X10*6/uL (4.20-5.50); Red Cell Distribution Width 12.6 % (11.0-16.0)
[2024-01-25 09:36] LABS: Estimated Average Glucose 131 mg/dL; Hemoglobin A1C 143.8444 umol/L; Hemoglobin A1c % 6.2 % (<6.0); Total Hemoglobin (HGBA1C) 3252.3089 umol/L
[2024-01-25 09:51] LABS: Alanine Aminotransferase 19 U/L (0-31); Albumin Level 4.1 g/dL (3.5-5.0); Alkaline Phosphatase 90 U/L (39-117); Anion Gap 14 (12-20); Aspartate Amino Transferase 23 U/L (5-31); Bilirubin Total 0.5 mg/dL (0.0-1.0); Blood Urea Nitrogen 18 mg/dL (9-16); Calcium 9.4 mg/dL (8.4-10.2); Carbon Dioxide 29 mmol/L (22-29); Chloride 103 mmol/L (96-108); Cholesterol 159 mg/dL (<200); Estimated Glomerular Filt Rate > 60; Glucose Fasting 126 mg/dL (60-99); HDL Cholesterol 59 mg/dL (>40); LDL Cholesterol Calculated 84 mg/dL (<100); Sodium 142 mmol/L (135-145); Total Protein 7.1 g/dL (6.5-8.0); Triglycerides 82 mg/dL (<150)
== END 2024-01-25 08:32 | disposition home or self-care (01) ==
LOC: HO.LAB 08:31
PROVIDERS: PCP Physician Assistant; Visit Provider Physician Assistant
DX: I10 Essential (primary) hypertension (principal); R73.09 Other abnormal glucose
CPT/HCPCS: 36415; 80053; 80061; 83036; 85027

== ENCOUNTER 2024-01-26 09:14 | Outpatient (AMB) | payer MEDICARE, MEDICAID, SELFPAY ==
[2024-01-26 09:32] VITALS: BP 154/78; PULSE 72; O2SAT 96; BMI 31.8
--- NOTE | 2024-01-26 09:32 | MHC.PC.OV ---
Vital Signs 01/26/24 09:32 Height 5 ft Weight 163 lb BMI 31.8 BP 154/78 H Blood Pressure Location Lt brachial Position Sitting Pulse 72 Pulse Source Pulse Oximeter Pulse Oximetry (%) 96 Oxygen Delivery Method Room Air Intake Visit Reasons: Annual Exam Screen Making Supervisor Required: No Accompanied by: Self / Same As Patient Allergies No Known Allergies [No Known Allergies*] Allergy (Verified 01/27/24 08:17) Medication List - Last Reconciled 01/27/24 by Davie Orozco PA-C acetaminophen (Tylenol Extra Strength) 500 mg PO Q6H PRN albuterol sulfate 90 mcg/actuation 1 inh inhalation QID PRN 30 days blood pressure test kit-large As directed lisinopril-hydrochlorothiazide 20-12.5 mg 1 tab PO DAILY 90 days meloxicam 15 mg PO DAILY 30 days omeprazole 20 mg PO DAILY semaglutide (weight loss) (Wegovy) 0.25 mg (0.5 mL) subcut QWEEK 4 weeks Tobacco use date assessed: 07/27/23 Dental Screening Dental Screen Date: 07/27/23 HPI Annual Exam HPI Details Patient is a 58 year-old female here today for an annual physical Patient has a past medical history significant for obesity, sensorineural hearing loss? ( has choclear inplant) , hypertension., Concerns--> patient reports having worsening right shoulder pain and decreased range of motion. Also having lower back pain and radicular symptoms down right lower extremity worse when lying down at night to sleep. PLAN: Will start workup with getting x-ray of the right shoulder and lower lumbar spine. She would likely benefit from physical therapy try meloxicam to help her with her pain. .. Impiared glucose metabolism: Most recent fasting blood sugar has improved, A1c now at 5.9 from 6.0. She has been working on lifestyle changes to reduce her sugar and carbohydrates in her diet. .. COPD : Has been having SOB on exertion and chest tightness.? She does use her albuterol inhaler though does not feel it is helpful.? Denies any smoking. .. HTN: . Blood pressure today in office elevated. She does report being somewhat stressed due to personal issues at home. has multiple medical issues and substance abuse issue. Will continue her current dose of lisinopril hydrochlorothiazide Colon cancer screening: Colonoscopy done in 2019 ( Dr Mace) - repeat 5 years. Mammogram: Done in 05/05/2023 BI-RADS 1 Vaccines: Up-to-date with COVID vaccine, tetanus vaccine, pneumonia vaccine, considering shingles vaccine Laboratory Tests 07/22/23 01/25/24 08:59 09:00 RBC 4.32 Hgb 12.4 Creatinine 0.82 Fasting Glucose 126 H Hemoglobin A1c % 5.9 6.2 H Cholesterol 159 LDL Cholesterol, C alc 84 [facility] Medical History Allergic rhinitis Iliotibial band syndrome affecting left lower leg Greater trochanteric bursitis of left hip COPD (chronic obstructive pulmonary disease) Abnormal US (ultrasound) of abdomen Surgical History History of surgery on wrist Hx of neck surgery Hx of colonoscopy (10/24/19) History of cervical discectomy Family History Father Diabetes mellitus Lyme disease Parkinson disease Mother Lung cancer Maternal Grandmother Breast cancer Other Hyperglycemia Leukemia Social History (Updated 01/26/24 @ 09:59 by Davie Orozco PA-C) Housing: House Unable to assess alcohol history related to: Unable to respond Alcohol intake: never Patient Tobacco Use Status: Former Tobacco user Tobacco use type: Cigarette e-Cigarette/Vaping Use: Never Used Second Hand Smoke Exposure: No service: No Current occupational status: employed 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 1. Little interest or pleasure in doing things: not at all 2. Feeling down, depressed, or hopeless: not at all 3. Trouble falling or staying asleep, or sleeping too much: not at all 4. Feeling tired or having little energy: not at all 5. Poor appetite or overeating: not at all 6. Feeling bad about yourself - or that you are a failure or have let yourself or your family down: not at all 7. Trouble concentrating on things, such as reading the newspaper or watching television: not at all 8. Moving or speaking so slowly that other people could have noticed. Or the opposite - being so fidgety or restless that you have been moving around a lot more than usual: not at all 9. Thoughts that you would be better off or of hurting yourself in some way: not at all Total score: 0 Depression Screening Interpretation: Negative Depression Screening Done: Yes 49922 - PHQ-9 Billing: Yes Source: Developed by Drs. Dave Mercado, Aleta Bal, Will Lopez and colleagues, with an educational kamar from [employer]. Thrive Questionnaire Date Thrive assessed: 01/26/24 I am a: Patient What is your living situation today?: I have a steady place to live Within the past 12 months, did the food you bought not last and you didn't have the money to get more?: Never true Within the past 12 months, did you worry whether your food would run out before you got money to buy more?: Never true Do you have trouble paying for medicines?: No Do you have trouble getting transportation to medical appointments?: No Do you have trouble paying your heating and electricity bill?: No Do you have trouble taking care of your child, family member or friend?: No Do you have trouble with day-to-day activities such as bathing, preparing meals, shopping, managing finances, etc.?: No Are you currently unemployed and looking for a job?: No Are you interested in more education?: No Please select the resources that you would like help with: None Currently or been in a relationship where the following occur: No concerns reported THRIVE Score: 0 AUDIT C Alcohol Use Questionnaire (AUDIT-C) 1. How often do you have a drink containing alcohol?: Never 3. How often do you have six or more drinks on one occasion?: Never Total Score: 0 SUSAN-7 AMB Questionnaire SUSAN-7 Date SUSAN - 7 assessed: 01/26/24 Feeling nervous, anxious, or on edge: 0 = Not at all Not being able to stop or control worryin = Not at all Worrying too much about different things: 0 = Not at all Trouble relaxin = Not at all Being so restless that it is hard to sit still: 0 = Not at all Becoming easily annoyed or irritable: 0 = Not at all Feeling afraid as if something awful might happen: 0 = Not at all Total SUSAN-7 score (0-4 normal; 5-9 mild; 10-14 moderate; 15-21 severe): 0 Source: Developed by Drs. Dave Mercado, Aleta Bal, Will Lopez and colleagues, with an educational kamar from [employer]. SUSAN-7 Assessment Billing SUSAN-7 Assessment Tool: SUSAN-7 Assessment 68455 Review of Systems Const Denies body aches, Denies chills, Denies excessive sweating, Denies fatigue, Denies fever(s) and Denies headache(s) Eyes Denies blurry vision ENT Denies dysphagia, Denies vertigo, Denies dizziness, Denies headache(s), Denies hearing loss and Denies tinnitus Card Denies chest pain, Denies chest pain with activity, Denies syncope, Denies irregular heart rhythm and Denies dyspnea Resp Denies chest congestion, Denies cough, Denies hemoptysis, Denies dyspnea and Denies wheezing GI Denies abdominal pain, Denies melena, Denies hematochezia, Denies coffee ground emesis, Denies dysphagia, Denies diarrhea, Denies nausea and Denies vomiting Denies urinary frequency, Denies dysuria, Denies urinary hesitancy and Denies urinary urgency Musc Denies arthralgias, Denies limited range of motion, Denies muscle cramps and Denies muscle weakness Skin/Breast Denies rash and Denies skin ulcer Neuro Denies Abnormal speech present, Denies confusion, Denies vertigo, Denies dizziness, Denies syncope, Denies headache(s), Denies memory loss and Denies seizure-like activity Psych Denies anxiety, Denies confusion, Denies depression, Denies memory loss, Denies panic attacks and Denies paranoia Endo Denies excessive sweating, Denies fatigue, Denies flushing, Denies polydipsia and Denies polyuria Aller/Immun Denies wheezing Physical exam (Primary Care) Vital Signs: Last Vital Signs Pulse 72 01/26/24 09:32 BP 154/78 H 01/26/24 09:32 Pulse Ox 96 01/26/24 09:32 Oxygen Delivery Method Room Air 01/26/24 09:32 BMI result Body Mass Index 31.8 Tobacco/Smoking Status: Tobacco use Status Tobacco use date assessed 07/27/23 01/26/24 09:33 Patient Tobacco Use Status Former Tobacco user 01/26/24 09:59 Tobacco use type Cigarette 01/26/24 09:59 e-Cigarette/Vaping Use Never Used 01/26/24 09:59 PHQ-9: PHQ-9 Score PHQ-9: Total score 0 01/26/24 09:56 Depression Screening Interpretation: Negative Thrive Assessment: Date of Thrive Assessment Date Thrive assessed 01/26/24 01/26/24 09:33 Currently or been in a relationship where the following occur: No concerns reported Const General: cooperative, comfortable, no acute distress, alert and awake; No confusion Orientation/consciousness: oriented to person, oriented to place, patient oriented x3 and No confusion HENMT Head: Yes normocephalic Ears: external ears normal and TM's normal bilaterally Face and sinus: No sinus tenderness Mouth: Normal oral and palatal mucosa present and tongue normal Teeth and gingiva: dentition normal and gingiva normal Throat: Yes posterior oropharynx normal, Yes tonsils normal and Yes uvula midline Eyes Conjunctivae: conjunctivae normal Sclerae: sclerae normal Pupils: Equal, round and reactive pupils present EOM: EOMs intact bilaterally Direct Ophthalmoscopy: No no photophobia Neck Neck: Yes no lymphadenopathy, No tender and Yes no JVD Thyroid: Thyroid normal Carotids: no bruits Chest Chest palpation & inspection: no tenderness Resp Effort & Inspection: normal respiratory effort, no audible wheezes, not labored and no stridor Auscultation: no crackles, no rales, no rhonchi and no wheezes Cardio Jugular venous distension: no JVD Rate: regular rate, not bradycardic and not tachycardic Rhythm: regular rhythm Bruits: no carotid bruits Peripheral pulses: Peripheral pulses 2+ throughout GI Inspection: Yes normal to inspection, No abdominal wall ecchymosis and No visible herniation Palpation (GI): Soft to palpation, nontender, no guarding, not rigid and No hepatosplenomegaly present Auscultation: normoactive bowel sounds General: Yes no CVA tenderness Back/Spine/Pelvis Back: no CVA tenderness and No back tenderness Cervical Spine: cervical ROM normal Thoracic/Lumbar Spine: thoracic and lumbar spine normal to inspection, straight leg raise negative bilaterally, No thoraco-lumbar ROM limited and No lumbar spinal tenderness Skin Lesions: no lesions Rashes: no rashes Wounds: no wounds Neuro General: oriented to person, oriented to place, patient oriented x3, CN's II-XI intact bilaterally and No confusion Cranial nerves: Yes Equal, round and reactive pupils present and Yes Normal accommodation reflex present Cognition (Neuro): normal cognition Speech: No Abnormal speech present Gait exam (Neuro): Normal gait present Motor exam (neuro): 5/5 motor strength present throughout Extrem Other: RIGHT SHOULDER: Somewhat Limited range of motion as compared to left shoulder. Positive empty can and Mcnair test. Right upper extremity: ROM limited and no cyanosis Left upper extremity: full ROM; no cyanosis Right lower extremity: no edema Left lower extremity: no edema Psych Appearance: grossly normal Mental Status: mental status grossly normal Affect: normal affect Attitude: cooperative Thought process: Normal thought process present Office Procedures Flu Questionnaire Does the patient have a severe egg allergy?: No Immunizations Fluarix Triv [id number] (PF) 45 mcg (15 mcg x 3)/0.5 mL IM syringe Performing Provider: Davie Orozco PA-C [place] Documented (not given) by: MADELINE Valdez on 01/26/24 09:53 Reason Not Given: Received Previously Coding Level of Care Code Est Pt Prev Care 40-64y(19525) Diagnoses Annual physical exam Z00.00 Essential hypertension I10 Hypertension type: essential hypertension Impaired glucose metabolism R73.09 Chronic bronchitis, unspecified chronic bronchitis type J42 COPD type: chronic bronchitis Chronic bronchitis type: unspecified Class 1 obesity E66.811 Tendinopathy of right shoulder M67.911 Lumbar radiculitis M54.16 Rotator cuff tear arthropathy of right shoulder M75.101; M12.811 Additional Codes SUSAN-7 Assessment Billing - SUSAN-7 Assessment Tool: SUSAN-7 Assessment 57780 ([id number]) PHQ-9 - 44127 - PHQ-9 Billing: Yes ([id number]) Assessment & Plan Assessment & Plan (1) Annual physical exam: Code(s): Z00.00 - Encounter for general adult medical examination without abnormal findings Category: Medical Plan: As per HPI (2) HTN (hypertension): Code(s): I10 - Essential (primary) hypertension Category: Medical Qualifiers: Hypertension type: essential hypertension Qualified Code(s): I10 - Essential (primary) hypertension Plan: Patient's blood pressure elevated today in office. She reports she has been under lot of stress as of lately and currently in some right shoulder pain. She continues with lisinopril 20 mg and hydrochlorothiazide 12.5. Will consider adding on amlodipine for better blood pressure control if blood pressures remain above 140/90 consistently. (3) Impaired glucose metabolism: Code(s): R73.09 - Other abnormal glucose Category: Medical Plan: Most recent fasting blood sugar remains elevated. She will work on lifestyle and dietary modifications. She is interested in starting a GLP 1 to help her lose weight thus would likely gained some glycemic control as well. (4) COPD (chronic obstructive pulmonary disease): Code(s): J44.9 - Chronic obstructive pulmonary disease, unspecified Category: Medical Qualifiers: COPD type: chronic bronchitis Chronic bronchitis type: unspecified Qualified Code(s): J42 - Unspecified chronic bronchitis Plan: Patient reports her breathing has been stable. Only uses her albuterol inhaler on an as needed basis. (5) Class 1 obesity: Code(s): E66.811 - Obesity, class 1 Category: Medical Plan: Patient does understand her BMI is over 30 and is willing to try a GLP 1 to help her lose weight. Also has comorbidities including impaired glucose metabolism and arthritis that may benefit weight loss. (6) Tendinopathy of right shoulder: Code(s): M67.911 - Unspecified disorder of synovium and tendon, right shoulder Category: Medical Plan: As per HPI patient has had some worsening range of motion over right shoulder and increased pain. She would likely benefit from formal physical therapy. (7) Lumbar radiculitis: Code(s): M54.16 - Radiculopathy, lumbar region Category: Medical Plan: As per HPI (8) Rotator cuff tear arthropathy of right shoulder: Code(s): M75.101 - Unspecified rotator cuff tear or rupture of right shoulder, not specified as traumatic; M12.811 - Other specific arthropathies, not elsewhere classified, right shoulder Category: Medical Plan: Due to patient's significant decreased range of motion in her right shoulder will try for MRI to evaluate for rotator cuff tear Orders: Orders Influenza [id number] Immunization 01/26/24 Z23 - Encounter for immunization PT Evaluation and Treatment 01/26/24 M67.911 - Unspecified disorder of synovium and tendon, right shoulder XR lumbar spine 2-3V 01/26/24 M54.16 - Radiculopathy, lumbar region MR shoulder RT wo con 01/26/24 M12.811 - Other specific arthropathies, not elsewhere classified, right shoulder, M67.911 - Unspecified disorder of synovium and tendon, right shoulder, M75.101 - Unspecified rotator cuff tear or rupture of right shoulder, not specified as traumatic Medications: New semaglutide (weight loss) (Reymundo) administer weeks 1 through 4 of therapy 0.25 mg (0.5 mL) subcut QWEEK 2 mL 0RF 4 weeks E66.811 - Obesity, class 1, I10 - Essential (primary) hypertension, R73.09 - Other abnormal glucose
== END 2024-01-26 10:24 | disposition home or self-care (01) ==
PROVIDERS: PCP Physician Assistant; Visit Provider Physician Assistant
DX: Z23 Encounter for immunization (principal)

== ENCOUNTER 2024-01-26 09:14 | Outpatient (REF) | payer MEDICARE, MEDICAID, SELFPAY ==
--- NOTE | ~2024-01-26 | XR_ITS ---
EXAMINATION: XR LUMBOSACRAL SPINE CLINICAL INFORMATION: Radiculopathy, lumbar region M54.16. Patient states pain in lower back. COMPARISON: XR Lumbar spine 10/31/2021 TECHNIQUE: Three views of the lumbosacral spine. FINDINGS: There is advanced narrowing at L2-3 with endplate sclerotic change and productive spondylitic change. There is mild extra scoliosis in the mid lumbar spine. There is no fracture, or dislocation or destructive process. There is moderate facet degenerative change at the lumbosacral junction. XR/XR lumbar spine 2-3V IMPRESSION: Degenerative change noted. Electronically signed by: Delvis Redding MD 03/15/2024 10:25 AM [facility]
--- NOTE | ~2024-01-26 | XR_ITS ---
EXAMINATION: XR RIGHT SHOULDER CLINICAL INFORMATION: Unspecified disorder of synovium and tendon, right shoulder M67.911. Patient states pain in lower back and right shoulder. COMPARISON: XR Right shoulder 07/10/2023 TECHNIQUE: AP external rotation, Grashey, scapular Y, and axillary views of the right shoulder. FINDINGS: There is moderate narrowing of the right AC joint with undersurface spurring. No fracture, dislocation or destructive process. XR/XR shoulder RT min 2V IMPRESSION: Mild degenerative change. Electronically signed by: Delvis Redding MD 03/15/2024 10:21 AM [facility]
== END 2024-01-26 09:15 | disposition home or self-care (01) ==
LOC: HO.XRAY 09:14
PROVIDERS: PCP Physician Assistant; Visit Provider Physician Assistant
DX: Z00.00 Encounter for general adult medical examination without abnormal findings (principal); I10 Essential (primary) hypertension; R73.09 Other abnormal glucose; J42 Unspecified chronic bronchitis; E66.811 Obesity, class 1; M67.911 Unspecified disorder of synovium and tendon, right shoulder; M54.16 Radiculopathy, lumbar region; M75.101 Unspecified rotator cuff tear or rupture of right shoulder, not specified as traumatic; M12.811 Other specific arthropathies, not elsewhere classified, right shoulder; Z79.899 Other long term (current) drug therapy
CPT/HCPCS: 72100; 73030; 90471; 96127; 99396

== ENCOUNTER 2024-03-02 11:19 | Outpatient (REF) | payer MEDICARE, MEDICAID, SELFPAY | END 2024-03-02 11:20 | disposition home or self-care (01) | LOC: HO.MRI 11:19 | PROVIDERS: PCP Physician Assistant; Visit Provider Physician Assistant | DX: Z13.89 Encounter for screening for other disorder (principal) ==

== ENCOUNTER 2024-03-03 10:34 | Outpatient (REF) | payer MEDICARE, MEDICAID, SELFPAY ==
--- NOTE | 2024-03-03 13:06 | MHC.AU.HA3 ---
Hearing Instrument Follow-Up- Binaural Date of Visit: 03/03/24 Manager Sustainability Used: Right Ear: Make, Model, Color, Serial Number: Cochlear Implant Left Ear: Make, Model, Color, Serial Number: ReSenrique VILLALBA Q7 SN: [id number] Color: Garcia Henry Testing Analyst Repair Warranty: 04/19/2026 Testing Analyst Loss and Damage Warranty: 04/19/2026 [facility] Service Plan: 05/19/2024 Battery Size: 675 Earmold/Dome/CShell/SlimTip: Microsonic M2000 full shell Dispensed By: [facility] Date of Fittin05/20/2023 Follow-Up Summary: Dispensed new earmold. Cleaned hearing aid. Good subjective comfort and benefit reported. Cary returned the [employer] loaner she had previously been lent in 2020. Recommendations: Recommendations: Hearing instrument follow-up or maintenance as needed. Diagnosis Code(s): Primary Diagnosis: H90.3 Bilateral Sensorineural Hearing Loss Signature: Provider: Kareem Dahl, [facility]
== END 2024-03-03 10:35 | disposition home or self-care (01) ==
LOC: HO.HAP 10:34
PROVIDERS: Visit Provider Physician Assistant
DX: Z46.1 Encounter for fitting and adjustment of hearing aid (principal); H90.3 Sensorineural hearing loss, bilateral
CPT/HCPCS: V5264; V5266

== ENCOUNTER 2024-03-13 09:04 | Outpatient (REF) | payer MEDICARE, MEDICAID, SELFPAY | END 2024-03-13 09:05 | disposition home or self-care (01) | LOC: HO.MRI 09:04 | PROVIDERS: PCP Physician Assistant; Visit Provider Physician Assistant | DX: Z13.89 Encounter for screening for other disorder (principal) ==

== ENCOUNTER 2024-03-22 09:11 | Outpatient (AMB) | payer MEDICARE, MEDICAID, SELFPAY ==
[2024-03-22 09:18] VITALS: BP 138/68; PULSE 64; TEMP 36.1; O2SAT 98; BMI 31.5
--- NOTE | 2024-03-22 09:18 | A.OFFPC_ITS ---
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: No Accompanied by: Self / Same As Patient Allergies No Known Allergies [No Known Allergies*] Allergy (Verified 03/22/24 09:41) Medication List - Last Reconciled 03/22/24 by Davie Orozco PA-C acetaminophen (Tylenol Extra Strength) 500 mg PO Q6H PRN albuterol sulfate 90 mcg/actuation 1 inh inhalation QID PRN 30 days blood pressure test kit-large As directed lisinopril-hydrochlorothiazide 20-12.5 mg 1 tab PO DAILY 90 days meloxicam 15 mg PO DAILY 30 days omeprazole 20 mg PO DAILY Tobacco use date assessed: 03/22/24 Dental Screening Dental Screen Date: 03/22/24 Did you have a dental visit in the last 12 months?: Yes Did you have a dental problem in the last 6 months where you did not have access to dental care?: No Was dental information given to patient?: Patient has dentist HPI f/u weight check HPI Details Patient is a 58 year-old female here today for a follow-up visit. Patient has a past medical history significant for obesity, sensorineural hearing loss? ( has choclear inplant) , hypertension., Concerns--> She reports episodes of hypoglycemia occurring every other day last week, with blood sugar readings as low as 56 mg/dL after meals, despite dietary precautions. Her blood sugar has fluctuated between hypoglycemic and hyperglycemic levels, with a reading of 126 mg/dL prior to eating today. There is a family history of hypoglycemia and diabetes. The patient attempted dietary adjustments and monitored blood sugar but continues to experience unstable glucose levels. Right shoulder pain and decreased range of motion: Has continued to have right shoulder pain and decreased range of motion. MRI was not able to be done as she was concerned about her cochlear implant being disrupted. Will try for CT of right shoulder and give referral to Orthopedics for evaluation for cortisone injection. .. Impiared glucose metabolism: Most recent fasting blood sugar has improved, A1c now at 5.9 from 6.0. She has been working on lifestyle changes to reduce her sugar and carbohydrates in her diet. .. COPD : Has been having SOB on exertion and chest tightness.? She does use her albuterol inhaler though does not feel it is helpful.? Denies any smoking. .. HTN: . Patient's blood pressure acceptable today in office. Will continue her current dose of lisinopril hydrochlorothiazide PFSH Medical History Allergic rhinitis Iliotibial band syndrome affecting left lower leg Greater trochanteric bursitis of left hip COPD (chronic obstructive pulmonary disease) Abnormal US (ultrasound) of abdomen Surgical History History of surgery on wrist Hx of neck surgery Hx of colonoscopy (10/24/19) History of cervical discectomy Family History Father Diabetes mellitus Lyme disease Parkinson disease Mother Lung cancer Maternal Grandmother Breast cancer Other Hyperglycemia Leukemia Social History Housing: House Unable to assess alcohol history related to: Unable to respond Alcohol intake: never Patient Tobacco Use Status: Former Tobacco user Tobacco use type: Cigarette e-Cigarette/Vaping Use: Never Used Second Hand Smoke Exposure: No service: No Current occupational status: employed 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 1. Little interest or pleasure in doing things: not at all 2. Feeling down, depressed, or hopeless: not at all 3. Trouble falling or staying asleep, or sleeping too much: not at all 4. Feeling tired or having little energy: not at all 5. Poor appetite or overeating: not at all 6. Feeling bad about yourself - or that you are a failure or have let yourself or your family down: not at all 7. Trouble concentrating on things, such as reading the newspaper or watching television: not at all 8. Moving or speaking so slowly that other people could have noticed. Or the opposite - being so fidgety or restless that you have been moving around a lot more than usual: not at all 9. Thoughts that you would be better off or of hurting yourself in some way: not at all Total score: 0 Depression Screening Interpretation: Negative Depression Screening Done: Yes 18085 - PHQ-9 Billing: Yes Source: Developed by Drs. Dave Mercado, Aleta Bal, Will Lopez and colleagues, with an educational kamar from [employer]. Thrive Questionnaire Date Thrive assessed: 03/22/24 I am a: Patient What is your living situation today?: I have a steady place to live Within the past 12 months, did the food you bought not last and you didn't have the money to get more?: Never true Within the past 12 months, did you worry whether your food would run out before you got money to buy more?: Never true Do you have trouble paying for medicines?: No Do you have trouble getting transportation to medical appointments?: No Do you have trouble paying your heating and electricity bill?: No Do you have trouble taking care of your child, family member or friend?: No Do you have trouble with day-to-day activities such as bathing, preparing meals, shopping, managing finances, etc.?: No Are you currently unemployed and looking for a job?: No Are you interested in more education?: No Please select the resources that you would like help with: None Currently or been in a relationship where the following occur: No concerns reported THRIVE Score: 0 AUDIT C Alcohol Use Questionnaire (AUDIT-C) 1. How often do you have a drink containing alcohol?: Never 3. How often do you have six or more drinks on one occasion?: Never Total Score: 0 SUSAN-7 AMB Questionnaire SUSAN-7 Date SUSAN - 7 assessed: 03/22/24 Feeling nervous, anxious, or on edge: 0 = Not at all Not being able to stop or control worryin = Not at all Worrying too much about different things: 0 = Not at all Trouble relaxin = Not at all Being so restless that it is hard to sit still: 0 = Not at all Becoming easily annoyed or irritable: 0 = Not at all Feeling afraid as if something awful might happen: 0 = Not at all Total SUSAN-7 score (0-4 normal; 5-9 mild; 10-14 moderate; 15-21 severe): 0 Source: Developed by Drs. Dave Mercado, Aleta Bal, Will Lopez and colleagues, with an educational kamar from [employer]. SUSAN-7 Assessment Billing SUSAN-7 Assessment Tool: SUSAN-7 Assessment 10326 Review of Systems Const Denies headache(s) Eyes Denies loss of vision ENT Denies vertigo, Denies dizziness, Denies headache(s) and Denies sore throat Card Denies chest pain, Denies leg edema and Denies lightheadedness Resp Denies cough, Denies hemoptysis and Denies wheezing GI Denies abdominal pain, Denies melena, Denies constipation, Denies diarrhea and Denies vomiting Denies urinary frequency, Denies dysuria and Denies urinary urgency Musc Denies arthralgias, Denies joint swelling, Denies numbness and Denies tingling Neuro Denies Abnormal speech present, Denies behavioral changes, Denies vertigo, Denies dizziness, Denies headache(s), Denies loss of vision, Denies memory loss, Denies numbness and Denies tingling Psych Denies anxiety, Denies behavioral changes, Denies depression, Denies memory loss and Denies panic attacks Jorge/Lymph Denies easy bleeding and Denies easy bruising Aller/Immun Denies wheezing Physical exam (Primary Care) Vital Signs: Last Vital Signs Temp 96.9 F 03/22/24 09:18 Pulse 64 03/22/24 09:18 BP 138/68 03/22/24 09:18 Pulse Ox 98 03/22/24 09:18 Oxygen Delivery Method Room Air 03/22/24 09:18 BMI result Body Mass Index 31.5 Tobacco/Smoking Status: Tobacco use Status Tobacco use date assessed 03/22/24 03/22/24 09:24 Patient Tobacco Use Status Former Tobacco user 03/22/24 09:19 Tobacco use type Cigarette 03/22/24 09:19 e-Cigarette/Vaping Use Never Used 03/22/24 09:19 PHQ-9: PHQ-9 Score PHQ-9: Total score 0 03/22/24 09:24 Depression Screening Interpretation: Negative Thrive Assessment: Date of Thrive Assessment Date Thrive assessed 03/22/24 03/22/24 09:19 Currently or been in a relationship where the following occur: No concerns reported Const General: healthy appearing, no acute distress, alert and awake Nutritional Appearance: well nourished Orientation/consciousness: oriented to person, oriented to place and oriented to time HENMT Ears: TM's normal bilaterally General nose exam: Normal nasal mucous membranes and turbinates present Eyes Conjunctivae: conjunctivae normal Sclerae: sclerae normal Pupils: Equal, round and reactive pupils present Neck Neck: Yes no lymphadenopathy and Yes no JVD Thyroid: Thyroid normal Carotids: no bruits Resp Effort & Inspection: normal respiratory effort and not tachypneic Auscultation: no crackles, no rales, no rhonchi and no wheezes Cardio Rate: regular rate Rhythm: regular rhythm Heart sounds: no murmurs and normal S1 and S2 GI Palpation (GI): Soft to palpation, nontender, no hepatomegaly and no splenomegaly Auscultation: normal bowel sounds Skin General skin exam: no rashes or lesions noted and dry skin Neuro General: oriented to person, oriented to place and oriented to time Cranial nerves: Yes Equal, round and reactive pupils present Speech: No Abnormal speech present Gait exam (Neuro): Normal gait present Motor exam (neuro): no tremor noted Extrem Other: RIGHT SHOULDER: LIMITED RANGE OF MOTION DUE TO PAIN AND STIFFNESS. PARTICULARLY LIMITED AB DUCTION AND INTERNAL ROTATION. Left upper extremity: full ROM Right lower extremity: full ROM; no edema Left lower extremity: full ROM; no edema Psych Mental Status: mental status grossly normal Speech and movement: Normal speech and movement present Affect: normal affect Attitude: cooperative Thought process: Normal thought process present Coding Level of Care Code Est Pt Level 4 (91745) Diagnoses Essential hypertension I10 Hypertension type: essential hypertension Impaired glucose metabolism R73.09 Chronic bronchitis, unspecified chronic bronchitis type J42 COPD type: chronic bronchitis Chronic bronchitis type: unspecified Class 1 obesity E66.811 Lumbar radiculitis M54.16 Rotator cuff tear arthropathy of right shoulder M75.101; M12.811 Hypoglycemia E16.2 Additional Codes SUSAN-7 Assessment Billing - SUSAN-7 Assessment Tool: SUSAN-7 Assessment 48814 ([id number]) PHQ-9 - 10523 - PHQ-9 Billing: Yes ([id number]) Assessment & Plan Assessment & Plan (1) HTN (hypertension): Code(s): I10 - Essential (primary) hypertension Category: Medical Qualifiers: Hypertension type: essential hypertension Qualified Code(s): I10 - Essential (primary) hypertension Plan: Patient's blood pressure acceptable today in office. Will continue her current dose of lisinopril hydrochlorothiazide with goal blood pressure to remain below 140/90 (2) Impaired glucose metabolism: Code(s): R73.09 - Other abnormal glucose Category: Medical Plan: Most recent fasting blood sugar remains elevated. She will work on lifestyle and dietary modifications. (3) COPD (chronic obstructive pulmonary disease): Code(s): J44.9 - Chronic obstructive pulmonary disease, unspecified Category: Medical Qualifiers: COPD type: chronic bronchitis Chronic bronchitis type: unspecified Qualified Code(s): J42 - Unspecified chronic bronchitis Plan: Patient reports her breathing has been stable. Only uses her albuterol inhaler on an as needed basis. She does report having a wheeze from time to time and she relates this to cold temperatures in the winter. (4) Class 1 obesity: Code(s): E66.811 - Obesity, class 1 Category: Medical Plan: She reports she continues to be active and tries to follow a low-calorie diet. Her GLP 1 has not been approved by insurance. She will continue lifestyle and dietary modifications. (5) Lumbar radiculitis: Code(s): M54.16 - Radiculopathy, lumbar region Category: Medical Plan: Has upcoming appointment with pain management for evaluation of her lumbar spine pain and radiculitis. Has tried meloxicam which has offered her some relief though still has elevated levels of pain at times. (6) Rotator cuff tear arthropathy of right shoulder: Code(s): M75.101 - Unspecified rotator cuff tear or rupture of right shoulder, not specified as traumatic; M12.811 - Other specific arthropathies, not elsewhere classified, right shoulder Category: Medical Plan: As per HPI patient has had some worsening range of motion over right shoulder and increased pain. Has been send for MRI though she had concerns about her cochlear implant being disrupted. Will try for CT of the right shoulder to evaluate for rotator cuff tear will refer to orthopedics for possible cortisone injection. She would likely benefit from formal physical therapy though she reports she is too busy at this time to do physical therapy. She has been trying her own home stretches and exercises on her right shoulder.. (7) Hypoglycemia: Code(s): E16.2 - Hypoglycemia, unspecified Category: Medical Plan: As per HPI Orders: Orders Microalbumin, Random (w Creat) Today I10 - Essential (primary) hypertension Complete Blood Count no Diff Today I10 - Essential (primary) hypertension Hemoglobin A1c Today R73.09 - Other abnormal glucose CT shoulder RT wo IV con Today M12.811 - Other specific arthropathies, not elsewhere classified, right shoulder, M75.101 - Unspecified rotator cuff tear or rupture of right shoulder, not specified as traumatic Comprehensive Casa. Panel Fast Today I10 - Essential (primary) hypertension Referrals Orthopedics Referral M12.811 - Other specific arthropathies, not elsewhere classified, right shoulder, M75.101 - Unspecified rotator cuff tear or rupture of right shoulder, not specified as traumatic
== END 2024-03-22 10:06 | disposition home or self-care (01) ==
PROVIDERS: PCP Physician Assistant; Visit Provider Physician Assistant
DX: I10 Essential (primary) hypertension (principal); J42 Unspecified chronic bronchitis; E66.811 Obesity, class 1; Z68.31 Body mass index [BMI] 31.0-31.9, adult; R73.09 Other abnormal glucose; M54.16 Radiculopathy, lumbar region; M75.101 Unspecified rotator cuff tear or rupture of right shoulder, not specified as traumatic; M12.811 Other specific arthropathies, not elsewhere classified, right shoulder; E16.2 Hypoglycemia, unspecified

== ENCOUNTER → 2024-03-22 09:11 | Outpatient (BNVA) | payer MEDICARE, MEDICAID, SELFPAY | PROVIDERS: PCP Physician Assistant; Visit Provider Physician Assistant | DX: I10 Essential (primary) hypertension (principal); J42 Unspecified chronic bronchitis; E66.811 Obesity, class 1; M54.16 Radiculopathy, lumbar region; M75.101 Unspecified rotator cuff tear or rupture of right shoulder, not specified as traumatic; M12.811 Other specific arthropathies, not elsewhere classified, right shoulder; E16.2 Hypoglycemia, unspecified | CPT/HCPCS: 96127; 99212 ==

== ENCOUNTER → 2024-03-24 10:08 | Outpatient (AMB) | payer MEDICARE, MEDICAID, SELFPAY | END | disposition home or self-care (01) | PROVIDERS: PCP Physician Assistant; Referring Provider Physician Assistant; Visit Provider Registered Nurse Emergency | CPT/HCPCS: 99204; G2211 ==

== ENCOUNTER → 2024-03-24 10:08 | Outpatient (BNVA) | payer MEDICARE, MEDICAID, SELFPAY | PROVIDERS: PCP Physician Assistant; Referring Provider Physician Assistant; Visit Provider Registered Nurse Emergency | DX: M47.816 Spondylosis without myelopathy or radiculopathy, lumbar region (principal) | CPT/HCPCS: 99202 ==

== ENCOUNTER 2024-05-25 08:33 | Emergency (ER) | payer MEDICARE, MEDICAID, SELFPAY ==
--- NOTE | ~2024-05-25 | XR_ITS ---
EXAMINATION: XR CHEST CLINICAL INFORMATION: cp COMPARISON: 02/17/2023. TECHNIQUE: 2 views of the chest were obtained. FINDINGS: The cardiac, hilar, and mediastinal contours are normal. The lungs are clear bilaterally. There is no pneumothorax or pleural effusion. There is no focal osseous or soft tissue abnormality. XR/XR chest 2V IMPRESSION: Normal chest. Electronically signed by: Jeffrey Bravo MD 05/25/2024 09:30 AM EDT
[2024-05-25 08:46] VITALS: BP 162/81; PULSE 82; RESP 18; TEMP 36.8; O2SAT 99; BMI 39.4
--- NOTE | 2024-05-25 08:49 | ECG_ITS ---
Test Reason : sob Blood Pressure : */* mmHG Vent. Rate : 78 BPM Atrial Rate : 78 BPM P-R Int : 164 ms QRS Dur : 94 ms QT Int : 386 ms P-R-T Axes : 21 2 30 degrees QTcB Int : 440 ms Normal sinus rhythm Incomplete right bundle branch block Borderline ECG When compared with ECG of 17-Feb-2023 17:56, No significant change was found Referred By: Generic ED Physician Electronically Signed By: Evin Cornjeo
[2024-05-25 09:50] LABS: Influenza A PCR NEGATIVE (Negative); Influenza B PCR NEGATIVE (Negative); Resp Syncy Virus RNA Qual PCR NEGATIVE (Negative); SARS COV2 PCR INHOUSE NEGATIVE (Negative)
--- NOTE | 2024-05-25 09:53 | ED_ITS ---
HPI - General Adult General Chief complaint: Upper Respiratory Symptoms Stated complaint: chills, headache, sore Time Seen by Provider: 05/25/24 09:25 Source: patient Mode of arrival: ambulatory Limitations: no limitations History of Present Illness HPI narrative: This is a 58-year-old woman with a past medical history of COPD, hypertension who presents for evaluation of headache, chills, myalgias, dry cough, nasal congestion, dyspnea and chest pain. The patient states that she has been sick for the last 4 days. She states that she initially felt better after 1 day of symptoms, but states that the symptoms had returned and persisted over the last couple of days. She states no objective fevers. She states no sputum production or hemoptysis. She states that she has felt tired and has had decreased appetite, but states being able to eat and drink. She states no exertional symptoms. She reports sinus pressure. she states associated thick rhinorrhea. She states pain in her chest when she coughs. She is having a hard time breathing through her nose due to congestion. She states no urinary symptoms or changes to bowel habits. She states no nausea or emesis. Related Data Previous Rx's ?Medication ?Instructions ?Recorded blood pressure test kit-large #1 ea 01/27/21 albuterol sulfate 90 mcg/actuation 1 inh inhalation QID PRN shortness 07/23/22 aerosol inhaler of breath or wheezing 30 days #8.5 grams omeprazole 20 mg capsule,delayed 20 mg PO DAILY #14 caps 02/17/23 release acetaminophen 500 mg tablet 500 mg PO Q6H PRN pain #30 tabs 07/10/23 (Tylenol Extra Strength) meloxicam 15 mg tablet 15 mg PO DAILY 30 days #30 tabs 02/20/24 lisinopril 20 1 tab PO DAILY 90 days #90 tabs 02/22/24 mg-hydrochlorothiazide 12.5 mg tablet lidocaine 5 % topical patch 1 patch topical DAILY PRN pain 30 03/24/24 days #30 ea methocarbamol 500 mg tablet 500 mg PO BID PRN muscle spasm 30 03/24/24 days #60 tabs amoxicillin 875 mg-potassium 1 tab PO Q12H 5 days #10 tabs 05/25/24 clavulanate 125 mg tablet Allergies Allergy/AdvReac Type Severity Reaction Status Date / Time No Known Allergies Allergy Verified 05/25/24 08:48 [No Known Allergies*] Review of Systems Review of Systems: ROS as per HPI [facility] Past Medical History Medical History Allergic rhinitis Iliotibial band syndrome affecting left lower leg Greater trochanteric bursitis of left hip COPD (chronic obstructive pulmonary disease) Abnormal US (ultrasound) of abdomen Surgical History History of surgery on wrist Hx of neck surgery Hx of colonoscopy (10/24/19) History of cervical discectomy Family History Family History Father Diabetes mellitus Lyme disease Parkinson disease Mother Lung cancer Maternal Grandmother Breast cancer Other Hyperglycemia Leukemia Social History Social History Housing: House Unable to assess alcohol history related to: Unknown Alcohol intake: never Patient Tobacco Use Status: Former Tobacco user Tobacco use type: Cigarette Smoked in Last 30 Days: No e-Cigarette/Vaping Use: Never Used Second Hand Smoke Exposure: No Use of substances other than those prescribed or required for medical reasons: Unknown Advance Directives: No Advance Directives Information Provided: Yes service: No Current occupational status: employed 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 Current occupational exposures/hazards: No Cognitive needs: No Hearing needs: No Vision needs: No Physical Exam ED Vital Signs: Vital Signs - 24 hr 05/25/24 08:46 Temperature 98.2 F Pulse Rate 82 Respiratory Rate 18 Blood Pressure 162/81 H Pulse Oximetry 99 Oxygen Delivery Method Room Air BMI result Body Mass Index 39.4 Gen: NAD, AOx3 HEENT: NCAT, EOMI, normal conjunctivaWithout edema, mild posterior oropharynx erythema without exudates, no buccal lesions, but no sublingual edema, +TTP to maxillary and frontal sinuses CV: RRR Pulm: CTAB, no increased work of breathing GI: Soft, NTND, no rebound, guarding or rigidity Neuro: Grossly non focal Medical Decision Making Medical Decision Making MDM Narrative: Differential diagnosis includes, but is not limited to Viral URI, pneumonia, sinusitis. Patient is afebrile and hemodynamically stable on room air. Exam is benign and reassuring although notable for tenderness to palpation over the maxillary and frontal sinuses consistent with sinusitis. Given onset of symptoms with subsequent resolution and return most symptoms based on provided history, this may be secondary to bacterial sinusitis and so we will treat empirically with Augmentin. Shared decision-making is performed and we discussed potential of continued observation period as this may be viral in etiology versus initiating empiric treatment with Augmentin for presumed bacterial sinusitis. We discussed risks of antibiotics including, but not limited to adverse side effect as well as complication with C. diff infection. Patient stated understanding and given concern for bacterial infection decision is made to pursue empiric treatment. Patient is provided first dose of Augmentin here in the ED. On re-examination, patient is well-appearing and in no acute distress. There is no indication for further emergent evaluation in this otherwise well-appearing patient as above. Patient is provided written and verbal instructions, prescription for Augmntin, educational materials, recommendations for outpatient follow-up, strict return precautions and teach back is performed. Patient states understanding and agreement with plan of care. Patient is discharged home in stable and improved condition. Admission/Observation Consideration of admission/observation: Escalation of care including admission/observation considered Lab Data MDM Lab Attestation statement: I reviewed the patient's lab results. Patient tests negative for Influenza, RSV and COVID-19. Labs: Lab Results 05/25/24 Range/Units 09:05 Influenza Type A (PCR) NEGATIVE (Negative) Influenza Type B (PCR) NEGATIVE (Negative) RSV RNA Qual (PCR) NEGATIVE (Negative) SARS-CoV-2 RNA (RT-PCR) NEGATIVE (Negative) Independent Interpretation I performed an independent interpretation of an: Plain X-Ray Interpretation: Per my interpretation, chest x-ray shows no focal consolidation, pleural effusion or pneumothorax Radiology Impression Discussion of test interpretation with radiology: I have reviewed the radiologist's reading. Radiologist Impression: XR/XR chest 2V IMPRESSION: Normal chest. Electronically signed by: Jeffrey Bravo MD 05/25/2024 09:30 AM EDT Dictated By: Jeffrey Bravo MD Signed By: <Electronically signed by Jeffrey Bravo MD in OV> 05/25/24 0930 Discharge Plan Discharge Clinical Impression: Sinusitis, acute Patient Disposition: Home, Self-Care Instructions: Sinusitis (ED), Warm Compress or Soak (ED) Additional Instructions: You were evaluated in the emergency room. You vital signs were reassuring. You tested negative for COVID-19, Influenza and RSV. Your chest x-ray was normal and showed no evidence of pneumonia. You were started on antibiotics for a sinus infection. A prescription has been sent to your pharmacy for these antibiotics. Please take as directed and until completed. Your next dose should be taken this evening. Follow up with your primary care doctor in 3-5 days. Please call before the weekend to schedule your follow up appointment. Return to the emergency with any new or concerning symptoms. Prescriptions: New amoxicillin-pot clavulanate 875-125 mg tablet 1 tab PO Q12H 5 Days Qty: 10 0RF No Action meloxicam 15 mg tablet 15 mg PO DAILY 30 Days Qty: 30 3RF lisinopril-hydrochlorothiazide 20-12.5 mg tablet 1 tab PO DAILY 90 Days Qty: 90 1RF omeprazole 20 mg capsule,delayed release(DR/EC) 20 mg PO DAILY Qty: 14 0RF acetaminophen [Tylenol Extra Strength] 500 mg tablet 500 mg PO Q6H PRN (Reason: pain) Qty: 30 0RF (DME) blood pressure test kit-large Kit See Rx Instructions .Route Qty: 1 0RF Rx Instructions: As directed albuterol sulfate 90 mcg/actuation HFA aerosol inhaler 1 inh inhalation QID PRN (Reason: shortness of breath or wheezing) 30 Days Qty: 8.5 2RF methocarbamol 500 mg tablet 500 mg PO BID PRN (Reason: muscle spasm) 30 Days Qty: 60 1RF Rx Instructions: No driving while taking this medication. Do no take with alcohol or other GIFT SHOP ASSISTANT Depressants lidocaine 5 % adhesive patch,medicated 1 patch topical DAILY PRN (Reason: pain) 30 Days Qty: 30 3RF Rx Instructions: leave on most painful area for up to 12 hrs Print Language: Guatemalan
[2024-05-25] MEDS: Amoxicillin/Potassium Clav 875 MG TABLET PO (10:31)
[2024-05-25 10:41] VITALS: BP 115/80; PULSE 89; RESP 18; TEMP 36.8; O2SAT 95
== END 2024-05-25 10:42 | disposition home or self-care (01) ==
PROVIDERS: Emergency Provider Emergency Medicine; PCP Physician Assistant
DX: J01.90 Acute sinusitis, unspecified (principal); R51.9 Headache, unspecified; M79.10 Myalgia, unspecified site; R09.81 Nasal congestion; R09.89 Other specified symptoms and signs involving the circulatory and respiratory systems; R06.02 Shortness of breath; Z03.818 Encounter for observation for suspected exposure to other biological agents ruled out
CPT/HCPCS: 0241U; 71046; 93005; 99283; 99284

== ENCOUNTER → 2024-05-25 08:49 | Outpatient (BNV) | payer MEDICARE, MEDICAID, SELFPAY | PROVIDERS: Emergency Provider Emergency Medicine; PCP Physician Assistant; Visit Provider Radiology Diagnostic Radiology | DX: R07.9 Chest pain, unspecified (principal) | CPT/HCPCS: 71046 ==

== ENCOUNTER → 2024-05-25 08:49 | Outpatient (BNV) | payer MEDICARE, MEDICAID, SELFPAY | PROVIDERS: Emergency Provider Emergency Medicine; PCP Physician Assistant; Visit Provider Internal Medicine Cardiovascular Disease | DX: I45.10 Unspecified right bundle-branch block (principal) | CPT/HCPCS: 93010 ==

== ENCOUNTER 2024-07-03 10:39 | Outpatient (AMB) | payer MEDICARE, MEDICAID, SELFPAY ==
--- NOTE | 2024-07-03 10:41 | A.OFFVIS_ITS ---
Vital Signs 07/03/24 10:42 Height 5 ft Weight 157 lb BMI 30.7 Intake Visit Reasons: New Prob - Right Shoulder Pain Intake Note: Cary is a 58 year old right hand dominant female who presents today for a new problem visit with complaints of right shoulder pain. Her PCP tried to order MRI however she has cochlear implant & she was worried about it being disrupted. She reports while putting out the trash about 1 year ago she felt a pop in her bicep. Patient reports that her shoulder has been improving due to home exercise program but she is still having pain with overhead movement and has pain in bsicep with full extension of the arm. Occasional numbness and tingling of the right arm. Allergies No Known Allergies [No Known Allergies*] Allergy (Verified 05/25/24 08:48) HPI HPI New Prob - Right Shoulder Pain: Details: This is a 58-year-old woman who comes in today with shoulder pain. She injured her right shoulder but a year ago lifting trash and has had pain ever since. He recently got a little worse but she has been doing home exercise program and states her motion has been okay. She does not have a lot of pain it is just difficult with overhead activities. She is taking care of her who has cancer and she is not feeling like she would want surgery. She states she can not get an MRI because of cochlear implants. [facility] Medical History Allergic rhinitis Iliotibial band syndrome affecting left lower leg Greater trochanteric bursitis of left hip COPD (chronic obstructive pulmonary disease) Abnormal US (ultrasound) of abdomen Surgical History History of surgery on wrist Hx of neck surgery Hx of colonoscopy (10/24/19) History of cervical discectomy Family History Father Diabetes mellitus Lyme disease Parkinson disease Mother Lung cancer Maternal Grandmother Breast cancer Other Hyperglycemia Leukemia Social History Housing: House Unable to assess alcohol history related to: Unknown Alcohol intake: never Patient Tobacco Use Status: Former Tobacco user Tobacco use type: Cigarette e-Cigarette/Vaping Use: Never Used Second Hand Smoke Exposure: No service: No Current occupational status: employed 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 She does have 4/5 empty can and positive leg test on the right. Negative Mcnair and Neer. Assessment & Plan Assessment & Plan (1) Dysfunction of right rotator cuff: Code(s): M67.911 - Unspecified disorder of synovium and tendon, right shoulder Category: Medical Plan: This is a 58-year-old woman with right rotator cuff dysfunction. She is accommodating with her shoulder girdle and weak on exam. I discussed these findings with her. Unfortunately she can not get an MRI. I discussed the possibility of a arthrogram and CT scan but she states she is not able to get surgery and not interested in surgery. Given this I think at, at this time at least, I recommend continue gentle range of motion and light strengthening exercises. Should she change her mind about surgery or her symptoms worsen she can return to see me at any time. Coding Level of Care Code Est Pt Level 4 (24305) Diagnoses Dysfunction of right rotator cuff M67.911
[2024-07-03 10:42] VITALS: BMI 30.7
== END 2024-07-03 11:03 | disposition home or self-care (01) ==
LOC: HO.HOS 10:40
PROVIDERS: PCP Physician Assistant; Visit Provider Orthopaedic Surgery
DX: M67.911 Unspecified disorder of synovium and tendon, right shoulder (principal)
CPT/HCPCS: 99214

== ENCOUNTER → 2024-07-03 10:39 | Outpatient (BNVA) | payer MEDICARE, MEDICAID, SELFPAY | PROVIDERS: PCP Physician Assistant; Visit Provider Orthopaedic Surgery | DX: M67.911 Unspecified disorder of synovium and tendon, right shoulder (principal) | CPT/HCPCS: 99212 ==

== ENCOUNTER 2024-07-19 11:12 | Outpatient (REF) | payer MEDICARE, MEDICAID, SELFPAY ==
[2024-07-24 13:33] LABS: HPV Genotype 16 Negative (Negative); HPV Genotype 18 Negative (Negative); HPV High Risk Negative (Negative)
== END 2024-07-19 11:13 | disposition home or self-care (01) ==
LOC: HO.LNP 11:12
PROVIDERS: PCP Physician Assistant; Visit Provider Obstetrics & Gynecology
DX: Z01.419 Encounter for gynecological examination (general) (routine) without abnormal findings (principal); Z11.51 Encounter for screening for human papillomavirus (HPV)
CPT/HCPCS: 87626; 88175; G0101

== ENCOUNTER 2024-07-19 11:12 | Outpatient (AMB) | payer MEDICARE, MEDICAID, SELFPAY ==
--- NOTE | 2024-07-19 11:13 | A.OFFVIS_ITS ---
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 No complaints. Last Pap/HPV was negative in 11/04 Last Mammogram was BI-RADS 1 in 05/08 Last Colonoscopy was done in 11/04, the recommendation was to repeat in 5 years REPLACED BY [facility] Medical History Allergic rhinitis Iliotibial band syndrome affecting left lower leg Greater trochanteric bursitis of left hip COPD (chronic obstructive pulmonary disease) Abnormal US (ultrasound) of abdomen Surgical History History of surgery on wrist Hx of neck surgery Hx of colonoscopy (10/24/19) History of cervical discectomy Family History Father Diabetes mellitus Lyme disease Parkinson disease Mother Lung cancer Maternal Grandmother Breast cancer Other Hyperglycemia Leukemia Social History Housing: House Unable to assess alcohol history related to: Unknown Alcohol intake: never Patient Tobacco Use Status: Former Tobacco user Tobacco use type: Cigarette e-Cigarette/Vaping Use: Never Used Second Hand Smoke Exposure: No service: No Current occupational status: employed 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 Current occupational exposures/hazards: No Cognitive needs: No Hearing needs: No Vision needs: No Female Reproductive History Menstrual Age of Menarche: 10 Date of Mammogram: 04/21/23 Review of Systems Const All systems reviewed & are unremarkable except as noted in HPI and below Card Reports as per HPI Resp Reports as per HPI GI Reports as per HPI and Reports no additional complaints Reports as per HPI Physical Exam Vital Signs: Last Vital Signs BP 120/83 07/19/24 11:14 BMI result Body Mass Index 31.2 Const General: cooperative, healthy appearing and comfortable Chest Chest palpation & inspection: normal inspection of the chest and normal palpation of entire chest wall Breast/axilla inspection: normal inspection of the breasts and normal inspection of the axillae Breast/axilla palpation: normal palpation of the breasts, normal palpation of the axillae and no axillary lymphadenopathy Resp Effort & Inspection: normal respiratory effort Auscultation: clear to auscultation bilaterally Percussion: percussion normal Cardio Palpation: normal PMI Rate: regular rate Rhythm: regular rhythm Heart sounds: no murmurs and no rubs Peripheral pulses: Peripheral pulses 2+ throughout GI Inspection: Yes normal to inspection Palpation (GI): Soft to palpation, nontender, no guarding, not rigid and No hepatosplenomegaly present Percussion: Yes normal to percussion Auscultation: normal bowel sounds Rectal Exam - Female: deferred General: Yes bladder normal to palpation External Female Exam: No lesion Speculum Exam - Vagina: normal appearance of the vagina, normal palpation, normal vaginal discharge and not erythematous Speculum Exam - Cervix: normal appearance of the cervix and normal palpation Bimanual exam- vagina & uterus: normal bimanual exam, normal palpation, uterine size normal, bladder normal to palpation, consistency normal and normal palpation Bimanual Exam- Adnexa, other: normal adnexae, no masses and no tenderness Assessment & Plan Assessment & Plan (1) Well woman exam: Code(s): Z01.419 - Encounter for gynecological examination (general) (routine) without abnormal findings Category: Medical Plan: Co testing done. Counseled the patient about the recommended dietary allowance of 1200 mg of Calcium & 600 IU of vitamin D. Mammogram ordered. The patient was referred to GI for screening colonoscopy . The patient was instructed to perform monthly self-breast exams and schedule annual exam in a year. All questions answered and the patient verbalized understanding. Orders: Orders MM tomosynthesis screening BI Today Z12.31 - Encounter for screening mammogram for malignant neoplasm of breast Referrals Gastroenterology Referral Z12.11 - Encounter for screening for malignant neoplasm of colon Coding Level of Care Code Est Pt Prev Care 40-64y(83330) Diagnoses Well woman exam Z01.419
[2024-07-19 11:14] VITALS: BP 120/83; BMI 31.2
--- OUTSIDE RECORDS SUMMARY | 2024-07-19 12:07 | XMS_ITS | Patient Health Record ---
Author Organization [facility] Address [address] [place] [address] Care Team Providers Care Process Plant Operator Name Role Phone Gabriel Arshad MD Primary Care Provider Collin Medina Unavailable [phone] Allergies Allergen (clinical drug ingredient) Drug/Non Drug Allergy documented on EMR Reaction Allergy Type Onset Date Status morphine Morphine Sulfate sick Drug Allergy Active Reason For Referral No Information Medications Medication SIG (Take, Route, Frequency, Duration) Notes Start Date End Date Status Night Splint AFO - L1930 as directed 10/10/2018 Active Physical Therapy . . . 2-3x/week for 3-4 weeks Active vitamin D Active Custom Orthotics as directed 10/10/2018 Active Social History Tobacco Use: Social History Observation Description Date Details (start date - stop date) Former Smoker NA - NA Tobacco Use/Smoking Question Answer Notes Are you a: former smoker Additional Findings: Tobacco Non-User Current no n-smoker Alcohol Screen Question Answer Notes Did you have a drink containing alcohol in the p ast year? No Points 0 Interpretation Negative Tobacco use other than smoking: Question Answer Notes Are you an other tobacco user? No Problems Problem Type SNOMED Code ICD Code Onset Dates Problem Status W/U Status Risk Notes Problem Localized, primary osteoarthritis of the ankle and/or foot (107884272) Primary osteoarthrit is, right ankle and foot (M19.071) Active confirmed Plan Of Treatment Pending Test Test Name Order Date X ray : Ankle, right 2V 10/10/2018 X ray : Foot, left 2V 10/10/2018 X ray : Foot, right 2V 10/10/2018 Insurance Providers Payer Name Payer Address Payer Phone Subscriber Number Group Number Insured Name Patient Relationship to Insured Coverage Start Date Coverage End Date Medicare National Govt Svcs Inc [address] [place] [address] [id number] Cary Soler Self - patient is the insured [employer] [address] [place] [address] [phone] [id number] Cary Soler Self - patient is the insured Medical (General) History Medical History History ICD Code Arthritis Broken bones Cataracts Measles Joint implants/screws Hearing Impaired Surgical History Surgery Date(Month/Year) broken wrist 10/1975 ear tubes replace disk in neck 11/04/2016
== END 2024-07-19 11:39 | disposition home or self-care (01) ==
LOC: HO.HWS 11:12
PROVIDERS: PCP Physician Assistant; Visit Provider Obstetrics & Gynecology
DX: Z01.419 Encounter for gynecological examination (general) (routine) without abnormal findings (principal)
CPT/HCPCS: G0101

== ENCOUNTER 2024-10-19 10:08 | Outpatient (REF) | payer MEDICARE, MEDICAID, SELFPAY ==
--- NOTE | ~2024-10-19 | MM_ITS ---
EXAMINATION: MM SCREENING DIGITAL BREAST TOMOSYNTHESIS, BILATERAL CLINICAL INFORMATION: Screening. Asymptomatic. COMPARISON: Mammography: Comparison is made with available priors TECHNIQUE: Digital breast mammography with tomosynthesis is performed in both the craniocaudal and mediolateral oblique views along with computer-aided detection (CAD). FINDINGS: There are scattered areas of fibroglandular density (ACR BI-RADS breast composition Category b). There are no significant masses, abnormal calcifications, or other abnormalities. MM/MM tomosynthesis screening BI IMPRESSION: No mammographic evidence of malignancy. ASSESSMENT: BI-RADS BI-RADS 1 - Negative RECOMMENDATION: Routine annual mammography screening. 1 year F/U This examination should not preclude the clinical evaluation of a suspicious palpable abnormality. This patient's information was entered into a reminder system with a target due date for their next mammogram. Electronically signed by: Sherin Zeng DO 10/23/2024 09:32 AM EDT
--- OUTSIDE RECORDS SUMMARY | 2024-10-19 11:22 | XMS_ITS | Patient Health Record ---
Author Organization [facility] Address [address] [place] [address] Care Team Providers Care Truck Technician Name Role Phone Gabriel Arshad MD Primary Care Provider Collin Medina Unavailable [phone] Allergies Allergen (clinical drug ingredient) Drug/Non Drug Allergy documented on EMR Reaction Allergy Type Onset Date Status morphine Morphine Sulfate sick Drug Allergy Active Reason For Referral No Information Medications Medication SIG (Take, Route, Frequency, Duration) Notes Start Date End Date Status Night Splint AFO - L1930 as directed 10/10/2018 Active Physical Therapy . . . 2-3x/week; Durat ion: 3-4 weeks 10/10/2018 Active vitamin D Active Custom Orthotics as [...] primary osteoarthritis of the ankle and/or foot (316332542) Primary osteoarthrit is, right ankle and foot [...] Inc [address] [place] [address] [id number] Cary Soler Self - patient is the insured [employer] [address] [place] [address] [id number] Cary Soler Self - patient is the insured Medical (General) History Medical History History ICD Code Arthritis Broken bones Cataracts Measles Joint implants/screws Hearing Impaired Surgical History Surgery Date(Month/Year) broken wrist 10/1975 ear tubes replace disk in neck 11/04/2016
--- OUTSIDE RECORDS SUMMARY | 2024-10-19 11:22 | XMS_ITS | Clinical Summary ---
Author Organization [facility] Address [address] [phone] Phone Care Team Providers Care Merchandise Complaint Adjuster Name Role Phone Pcp, Unknown Primary Care Provider Unavailabl e Medications calcium carbonate-vitam in D3 1,500 mg (600 mg elemental)-200 units Tab Take 1 tablet by mouth daily. with food Active naproxen sodium (ALEVE) 220 MG tablet Take 1 tablet by mouth every 12 (twelve) hours as needed. Active KRILL OIL ORAL 1 tab(s) Orally daily Active ibuprofen-diphe nhydrAMINE (IBUPROFEN PM) 200-38 mg Tab Take 2 tablets by mouth nightly as needed. Active Social History Tobacco Use Types Packs/Day Years Used Date Smoking Tobacco: Never Assessed Education Answer Date Recorded Are you interested in more education? Not on get e 06/12/2022 Are you concerned about learning? Not on file 06/12/2022 No 06/12/2022 No 06/12/2022 Digital Access Answer Date Recorded No 07/13/2022 No 07/13/2022 Reliable internet access at home? Not on file 07/13/2022 Device with a working camera? Not on file Comments Unknown Sex and Gender Information Value Date Recorded Sex Assigned at Not on file Legal Sex Female 9:43 PM EDT Gender Identity Not on file Sexual Orientation Not on file Last Filed Vital Signs Vital Sign Reading Time Taken Comments Blood Pressure 122/60 12/07/2014 1:18 AM EDT Pulse 72 12/07/2014 1:18 AM EDT Temperature 36.2 C (97.2 F) 12/07/2014 1:18 AM EDT Respiratory Rate 16 12/07/2014 1:18 AM EDT Oxygen Saturation - - Inhaled Oxygen Concentration - - Weight 69.3 kg (152 lb 12.8 oz) 12/07/2014 1:18 AM EDT Height 153.7 cm (5' 0.5 ) 12/07/2014 1:18 AM EDT Body Mass Index 29.35 12/07/2014 1:18 AM EDT Plan of Treatment Health Maintenance Due Date Last Done Comments DEPRESSION SCREENING 1975 SMOKING Hx and SMOKELESS TOBACCO SCREENING 10/10/1976 HEPATITIS C SCREENING 10/10/1981 HIV ONE-TIME SCREENING (18-6 5 YEARS) 10/10/1981 PAP SMEAR 10/10/1984 MAMMOGRAM 2003 COLOGUARD 10/10/2008 COLONOSCOPY 10/10/2008 COLORECTAL CANCER SCREENING 10/10/2008 FIT TEST 10/10/2008 FOBT 10/10/2008 SIGMOIDOSCOPY 10/10/2008 VIRTUAL COLONOSCOPY 10/10/2008 ZOSTER VACCINES (1 of 2) 10/10/2013 LIPID PANEL 09/22/2019 09/21/2014 PNEUMOCOCCAL VACCINES (50+ years) (2 of 2 - PCV) 02/25/2021 02/26/2020 Adult Td,Tdap Booster 07/07/2023 07/06/2013 INFLUENZA VACCINE (#1) 2024 , 12/16/2018, 12/07/2014 COVID-19 VACCINE (2 - 2024-2 6 season) 2024 06/04/2020 RSV VACCINE (1 - 1-dose 75+ series) 10/10/2038 HEPATITIS A VACCINES Aged Out No long er eligible based on patient's age to complete this topic HIB VACCINES Aged Out No longer eligi ble based on patient's age to complete this topic MENINGOCOCCAL VACCINES (ACWY) Aged Out No longer eligible based on patient's age to complete this topic MENINGOCOCCAL VACCINES (B) Aged Out N o longer eligible based on patient's age to complete this topic Medical Devices Not on file Procedures Procedure Name Priority Date/Time Associated Diagnosis Comments OUTSIDE LDL Routine 09/21/2014 from Last 3 Months or Most Recently Relevant to Health Maintenance Results * Outside LDL (09/21/2014) LDL - External 82 50 - 250 mg/ml us Historical Provider LAB BLOOD ORDERABLES Vicki l Result from Last 3 Months or Most Recently Relevant to Health Maintenance Care Teams Merchandise Complaint Adjuster Relationship Specialty Start Date End Date Pcp, Unknown PCP - General 03/03/19 Additional Source Comments The information contained in this document represents components of the legal health record. It is not the complete legal health record.[facility]
--- OUTSIDE RECORDS SUMMARY | 2024-10-19 11:22 | XMS_ITS | Patient Health Record ---
Author Organization [facility] Address [address] [place] [address] Care Team Providers Care Market Relationship Manager Name Role Phone Jeancarlos (RETIRED) Gabriel SMITH Primary Care Provide r Dave Krishnamurthy Unavailable [phone] Reason For Referral No Information Medications Medication SIG (Take, Route, Fr equency, Duration) Notes Start Date End Date Status Ibuprofen 200 MG 1 tablet as needed O rally every 6 hrs/prn Active Immunizations Vaccine Route Administration Date Status Comme nts Influenza Unknown 09/14/2018 Refused Social History Tobacco Use: Social History Observation Description Date Details (start date - stop date) Former Smoker NA - NA Tobacco Use/Smoking Question Answer Notes Patient is a former smoker How long has it been since you last smoked? > 10 years Alcohol Screen Question Answer Notes Did you have a drink containing alcohol in the p ast year? No Points 0 Interpretation Negative Section Notes: Nonsmoker since 2002; no sig alcohol Nonsmoker since 2002; no sig alcohol Problems Problem Type SNOMED Code ICD Code Onset Dates Problem Status W/U Status Risk Notes Problem [id number] Encounter for screening for malignant neoplasm of colon (Z12.11) Active confirmed Problem 802853961 Encntr long-term NSAID use (Z79.1) Active confirmed Plan Of Treatment Future Test Test Name Order Date COLONOSCOPY 03/22/2014 COLONOSCOPY 09/14/2018 Insurance Providers Payer Name Payer Address Payer Phone Subscriber Number Group Number Insured Name Patient Relationship to Insured Coverage Start Date Coverage End Date [place] [address] [place] [address] [phone] [id number] KARLO ROBERT Self - patient is the insured [employer] CLAIMS [address] [place] [address] [id number] KARLO ROBERT Self - patient is the insured Medical (General) History Medical History History ICD Code Denies VT,DM,CVA,renal disease COPD/Emphysema 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
== END 2024-10-19 10:09 | disposition home or self-care (01) ==
LOC: HO.MAMMO 10:08
PROVIDERS: PCP Physician Assistant; Visit Provider Obstetrics & Gynecology
DX: Z12.31 Encounter for screening mammogram for malignant neoplasm of breast (principal)
CPT/HCPCS: 77063; 77067

== ENCOUNTER → 2024-10-19 10:15 | Outpatient (BNV) | payer MEDICARE, MEDICAID, SELFPAY | PROVIDERS: PCP Physician Assistant; Visit Provider Internal Medicine | DX: Z12.31 Encounter for screening mammogram for malignant neoplasm of breast (principal) | CPT/HCPCS: 77063; 77067 ==

== ENCOUNTER 2024-12-20 11:49 | Outpatient (AMB) | payer MEDICARE, MEDICAID, SELFPAY ==
[2024-12-20 11:49] VITALS: BP 136/80; PULSE 76; TEMP 36.6; O2SAT 96; BMI 32.2
--- NOTE | 2024-12-20 11:49 | MHC.PC.OV ---
Vital Signs 12/20/24 11:49 Height 5 ft Weight 165 lb BMI 32.2 BP 136/80 Blood Pressure Location Lt brachial Position Sitting Pulse 76 Pulse Source Pulse Oximeter Temp 97.8 F Temp Source Temporal Artery Scan Pulse Oximetry (%) 96 Oxygen Delivery Method Room Air Intake Visit Reasons: Therapy Allergies No Known Allergies (No Known Allergies*) Allergy (Verified 12/20/24 12:01) Medication List - Last Reconciled 12/20/24 by Davie Orozco PA-C acetaminophen (Tylenol Extra Strength) 500 mg PO Q6H PRN albuterol sulfate 90 mcg/actuation 1 inh inhalation QID PRN 30 days blood pressure test kit-large As directed lidocaine 5% 1 patch topical DAILY PRN 30 days lisinopril-hydrochlorothiazide 20-12.5 mg 1 tab PO DAILY 90 days meloxicam 15 mg PO DAILY 30 days omeprazole 20 mg PO DAILY Tobacco use date assessed: 12/20/24 Dental Screening Dental Screen Date: 12/20/24 Did you have a dental visit in the last 12 months?: No Did you have a dental problem in the last 6 months where you did not have access to dental care?: No Was dental information given to patient?: No HPI Therapy HPI Details Patient is a 59 year-old female here today for a follow-up visit. Patient has a past medical history significant for obesity, sensorineural hearing loss? ( has choclear inplant) , hypertension., Concerns--> patient's has been this past year, she has been dealing with grief though feels supported by her family and friends and her cheondoism. She is interested in getting a note to have her dog be an emotional support animal Impiared glucose metabolism: Most recent fasting blood sugar has improved, A1c now at 5.9 from 6.0. She has been working on lifestyle changes to reduce her sugar and carbohydrates in her diet. .. COPD : Has been having SOB on exertion and chest tightness.? She does use her albuterol inhaler though does not feel it is helpful.? Denies any smoking. .. HTN: . Patient's blood pressure acceptable today in office. Will continue her current dose of lisinopril hydrochlorothiazide PFS Medical History Allergic rhinitis Iliotibial band syndrome affecting left lower leg Greater trochanteric bursitis of left hip COPD (chronic obstructive pulmonary disease) Abnormal US (ultrasound) of abdomen Surgical History History of surgery on wrist Hx of neck surgery Hx of colonoscopy (10/24/19) History of cervical discectomy Family History Father Diabetes mellitus Lyme disease Parkinson disease Mother Lung cancer Maternal Grandmother Breast cancer Other Hyperglycemia Leukemia Social History Housing: House Alcohol intake: never Patient Tobacco Use Status: Former Tobacco user Tobacco use type: Cigarette e-Cigarette/Vaping Use: Never Used Second Hand Smoke Exposure: No service: No Current occupational status: employed 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 1. Little interest or pleasure in doing things: not at all 2. Feeling down, depressed, or hopeless: not at all 3. Trouble falling or staying asleep, or sleeping too much: not at all 4. Feeling tired or having little energy: not at all 5. Poor appetite or overeating: not at all 6. Feeling bad about yourself - or that you are a failure or have let yourself or your family down: not at all 7. Trouble concentrating on things, such as reading the newspaper or watching television: not at all 8. Moving or speaking so slowly that other people could have noticed. Or the opposite - being so fidgety or restless that you have been moving around a lot more than usual: not at all 9. Thoughts that you would be better off or of hurting yourself in some way: not at all Total score: 0 Depression Screening Interpretation: Negative Depression Screening Done: Yes 69062 - PHQ-9 Billing: Patient declined-do not bill Source: Developed by Drs. Dave Mercado, Aleta Bal, Will Lopez and colleagues, with an educational kamar from [employer]. Thrive Questionnaire Date Thrive assessed: 03/22/24 I am a: Patient What is your living situation today?: I have a steady place to live Within the past 12 months, did the food you bought not last and you didn't have the money to get more?: Never true Within the past 12 months, did you worry whether your food would run out before you got money to buy more?: Never true Do you have trouble paying for medicines?: No Do you have trouble getting transportation to medical appointments?: No Do you have trouble paying your heating and electricity bill?: No Do you have trouble taking care of your child, family member or friend?: No Do you have trouble with day-to-day activities such as bathing, preparing meals, shopping, managing finances, etc.?: No Are you currently unemployed and looking for a job?: No Are you interested in more education?: No Please select the resources that you would like help with: None Currently or been in a relationship where the following occur: No concerns reported THRIVE Score: 0 AUDIT C Alcohol Use Questionnaire (AUDIT-C) 1. How often do you have a drink containing alcohol?: Never 3. How often do you have six or more drinks on one occasion?: Never Total Score: 0 SUSAN-7 AMB Questionnaire SUSAN-7 Date SUSAN - 7 assessed: 03/22/24 Feeling nervous, anxious, or on edge: 0 = Not at all Not being able to stop or control worryin = Not at all Worrying too much about different things: 0 = Not at all Trouble relaxin = Not at all Being so restless that it is hard to sit still: 0 = Not at all Becoming easily annoyed or irritable: 0 = Not at all Feeling afraid as if something awful might happen: 0 = Not at all Total SUSAN-7 score (0-4 normal; 5-9 mild; 10-14 moderate; 15-21 severe): 0 Source: Developed by Drs. Dave Mercado, Aleta Bal, Will Lopez and colleagues, with an educational kamar from [employer]. Review of Systems Const Denies headache(s) Eyes Denies loss of vision ENT Denies vertigo, Denies dizziness, Denies headache(s) and Denies sore throat Card Denies chest pain, Denies leg edema and Denies lightheadedness Resp Denies cough, Denies hemoptysis and Denies wheezing GI Denies abdominal pain, Denies melena, Denies constipation, Denies diarrhea and Denies vomiting Denies urinary frequency, Denies dysuria and Denies urinary urgency Musc Denies arthralgias, Denies joint swelling, Denies numbness and Denies tingling Neuro Denies Abnormal speech present, Denies behavioral changes, Denies vertigo, Denies dizziness, Denies headache(s), Denies loss of vision, Denies memory loss, Denies numbness and Denies tingling Psych Denies anxiety, Denies behavioral changes, Denies depression, Denies memory loss and Denies panic attacks Jorge/Lymph Denies easy bleeding and Denies easy bruising Aller/Immun Denies wheezing Physical exam (Primary Care) Vital Signs: Last Vital Signs Temp 97.8 F 12/20/24 11:49 Pulse 76 12/20/24 11:49 BP 136/80 12/20/24 11:49 Pulse Ox 96 12/20/24 11:49 Oxygen Delivery Method Room Air 12/20/24 11:49 BMI result Body Mass Index 32.2 Tobacco/Smoking Status: Tobacco use Status Tobacco use date assessed 12/20/24 12/20/24 11:53 Patient Tobacco Use Status Former Tobacco user 12/20/24 11:53 Tobacco use type Cigarette 12/20/24 11:53 e-Cigarette/Vaping Use Never Used 12/20/24 11:53 PHQ-9: PHQ-9 Score PHQ-9: Total score 0 12/20/24 12:02 Depression Screening Interpretation: Negative Thrive Assessment: Date of Thrive Assessment Date Thrive assessed 03/22/24 12/20/24 11:53 Currently or been in a relationship where the following occur: No concerns reported Const General: healthy appearing, no acute distress, alert and awake Nutritional Appearance: well nourished Orientation/consciousness: oriented to person, oriented to place and oriented to time HENMT Ears: TM's normal bilaterally General nose exam: Normal nasal mucous membranes and turbinates present Eyes Conjunctivae: conjunctivae normal Sclerae: sclerae normal Pupils: Equal, round and reactive pupils present Neck Neck: Yes no lymphadenopathy and Yes no JVD Thyroid: Thyroid normal Carotids: no bruits Resp Effort & Inspection: normal respiratory effort and not tachypneic Auscultation: no crackles, no rales, no rhonchi and no wheezes Cardio Rate: regular rate Rhythm: regular rhythm Heart sounds: no murmurs and normal S1 and S2 GI Palpation (GI): Soft to palpation, nontender, no hepatomegaly and no splenomegaly Auscultation: normal bowel sounds Skin General skin exam: no rashes or lesions noted and dry skin Neuro General: oriented to person, oriented to place and oriented to time Cranial nerves: Yes Equal, round and reactive pupils present Speech: No Abnormal speech present Gait exam (Neuro): Normal gait present Motor exam (neuro): no tremor noted Extrem Right upper extremity: full ROM Left upper extremity: full ROM Right lower extremity: full ROM; no edema Left lower extremity: full ROM; no edema Psych Mental Status: mental status grossly normal Speech and movement: Normal speech and movement present Affect: normal affect Attitude: cooperative Thought process: Normal thought process present Coding Level of Care Code Est Pt Level 4 (05398) Diagnoses Essential hypertension I10 Hypertension type: essential hypertension Impaired glucose metabolism R73.09 Chronic bronchitis, unspecified chronic bronchitis type J42 COPD type: chronic bronchitis Chronic bronchitis type: unspecified Class 1 obesity E66.811 Grief F43.21 Assessment & Plan Assessment & Plan (1) HTN (hypertension): Code(s): I10 - Essential (primary) hypertension Category: Medical Qualifiers: Hypertension type: essential hypertension Qualified Code(s): I10 - Essential (primary) hypertension Plan: Patient's blood pressure acceptable today in office. Will continue her current dose of lisinopril hydrochlorothiazide with goal blood pressure to remain below 140/90 (2) Impaired glucose metabolism: Code(s): R73.09 - Other abnormal glucose Category: Medical Plan: Most recent fasting blood sugar remains elevated. She will work on lifestyle and dietary modifications. (3) COPD (chronic obstructive pulmonary disease): Code(s): J44.9 - Chronic obstructive pulmonary disease, unspecified Category: Medical Qualifiers: COPD type: chronic bronchitis Chronic bronchitis type: unspecified Qualified Code(s): J42 - Unspecified chronic bronchitis Plan: Patient reports her breathing has been stable. Only uses her albuterol inhaler on an as needed basis. She does report having a wheeze from time to time and she relates this to cold temperatures in the winter. (4) Class 1 obesity: Code(s): E66.811 - Obesity, class 1 Category: Medical Plan: She reports she continues to be active and tries to follow a low-calorie diet. Her GLP 1 has not been approved by insurance. She will continue lifestyle and dietary modifications. (5) Grief: Code(s): F43.21 - Adjustment disorder with depressed mood Category: Medical Plan: Patient's has been for an aggressive form blood cancer this year. She has been dealing with grief though feels she is well supported by her family and friends.
--- OUTSIDE RECORDS SUMMARY | 2024-12-20 14:29 | XMS_ITS | Patient Health Record ---
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 Recording Engineer Name Role Phone Gabriel Arshad MD Primary Care Provider Collin Lilly Unavailable [phone] Allergies Allergen (clinical drug ingredient) Drug/Non Drug [...] primary osteoarthritis of the ankle and/or foot ([id number]) Primary osteoarthrit is, right ankle and foot [...] Inc [address] [place] [address] [id number] Cary Soler Self - patient is the insured [employer] [address] [place] [address] [phone] [id number] Cary Soler Self - patient is the insured Medical (General) History Medical History History ICD Code Arthritis Broken bones Cataracts Measles Joint implants/screws Hearing Impaired Surgical History Surgery Date(Month/Year) broken wrist 10/1975 ear tubes replace disk in neck 11/04/2016
--- OUTSIDE RECORDS SUMMARY | 2024-12-20 14:29 | XMS_ITS | Clinical Summary ---
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 It is not the complete legal health record.[facility]
--- OUTSIDE RECORDS SUMMARY | 2024-12-20 14:29 | XMS_ITS | Patient Health Record ---
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 Operator Name Role Phone Jeancarlos (RETIRED) Gabriel SMITH Primary Care Provide r Dave Krishnamurthy Unavailable [phone] Reason For Referral No Information Medications Medication [...] Problem Status W/U Status Risk Notes Problem Screening for malignant neoplasm of colon (657190524) Encounter for screening for malignant neoplasm of colon (Z12.11) Active confirmed Problem skilled nursing current use of non-steroidal anti-inflammat ory drug ([id number] 03) Encntr long-term NSAID use (Z79.1) Active confirmed Plan Of Treatment Future Test Test Name Order Date COLONOSCOPY 03/22/2014 COLONOSCOPY 09/14/2018 Insurance Providers Payer Name Payer Address Payer Phone Subscriber Number Group Number Insured Name Patient Relationship to Insured Coverage Start Date Coverage End Date MEDICARE OF [employer] [address] [place] [id number] JAKOBKARLO CARBAJAL Self - patient is the insured [employer] CLAIMS [address] [place] [address] [phone] [id number] KARLO ROBERT Self - patient is the insured Medical (General) History Medical History History ICD Code Denies [place],DM,CVA,renal disease COPD/Emphysema 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
== END 2024-12-20 12:28 | disposition home or self-care (01) ==
LOC: HO.HMCH 11:49
PROVIDERS: Visit Provider Physician Assistant
DX: I10 Essential (primary) hypertension (principal); J42 Unspecified chronic bronchitis; E66.811 Obesity, class 1; Z68.32 Body mass index [BMI] 32.0-32.9, adult; R73.09 Other abnormal glucose; F43.21 Adjustment disorder with depressed mood

== ENCOUNTER → 2024-12-20 11:49 | Outpatient (BNVA) | payer MEDICARE, MEDICAID, SELFPAY | PROVIDERS: Visit Provider Physician Assistant | DX: I10 Essential (primary) hypertension (principal); R73.09 Other abnormal glucose; J42 Unspecified chronic bronchitis; E66.811 Obesity, class 1; F43.21 Adjustment disorder with depressed mood; Z13.31 Encounter for screening for depression | CPT/HCPCS: 96127; 99212 ==